=== PATIENT | female | born 1940 | race Caucasian/White ===

== ENCOUNTER → 2017-11-30 07:26 | Outpatient (CLI) | payer MEDICARE, SELFPAY ==
--- NOTE | 2017-11-30 07:29 | HPBI_ITS ---
MAMMOGRAPHY - BILATERAL SCREENING REASON FOR EXAM: Female, 77 years old. Routine annual screening examination. PERTINENT HISTORY: Aunt with breast cancer. TECHNIQUE: Digital bilateral breast isi (3D mammographic acquisition) in the CC and MLO projections. 2-D mediolateral oblique (MLO) and craniocaudad (CC) views of both breasts were obtained. CAD: Full Field Digital Mammography with Computer Added Detection was performed. COMPARISON: Comparison is made with prior examination dated May 07, 2017 and September 28, 2015. FINDINGS: Breast Composition: The breasts are heterogeneously dense, which may obscure small masses. There are no dominant masses or suspicious calcifications. No other significant abnormalities are identified. There has been no significant change since the prior study. HPBI/SCREENING MAMM (CAD), BILAT IMPRESSION: Stable bilateral screening mammogram. Yearly follow-up mammogram recommended. (A) ASSESSMENT CATEGORY: BIRADS Category 1: Negative. A letter regarding these results will be sent to the patient by the facility within 30 days. Approximately 10% of breast cancers are not detected by mammography. A normal mammogram should not delay biopsy of a clinically suspicious abnormality. [id number] Electronically Signed: Miguel Paz MD at 9:03 EST Tel [phone], Service support ,
== END ==
PROVIDERS: Family Provider Family Medicine; PCP Family Medicine; Visit Provider Family Medicine
DX: Z12.31 Encounter for screening mammogram for malignant neoplasm of breast (principal)
CPT/HCPCS: 77063; 77067

== ENCOUNTER → 2018-04-23 13:47 | Outpatient (CLI) | payer MEDICARE, SELFPAY ==
--- NOTE | 2018-04-23 13:50 | CDU_ITS ---
Reason For Study: Transient loss of OS Rt. Velocities/BP Lt. Velocities/BP Prox CCA 87/17 cm/sec. Prox CCA 109/26 cm/sec. Mid CCA 91/19 cm/sec. Mid CCA 105/28 cm/sec. Dist CCA 85/19 cm/sec. Dist CCA 92/25 cm/sec. Prox ICA 64/17 cm/sec. Prox ICA 57/19 cm/sec. Mid ICA 72/24 cm/sec. Mid ICA 73/24 cm/sec. Dist ICA 111/37 cm/sec. Dist ICA 98/37 cm/sec. Rt. ICA/CCA = 1.21. Lt. ICA/CCA = 0.93. Prox ECA 56/7 cm/sec. Prox ECA 71/7 cm/sec. Rt. Vert. 51/13 cm/sec. Lt. Vert. 70/19 cm/sec. Right Extracranial There is intimal thickening but no significant atherosclerotic plaque noted in the right common carotid artery. There is no significant atherosclerotic plaque noted in the right internal carotid artery. There is heterogeneous, irregular atherosclerotic plaque noted in the right external carotid artery. Antegrade flow is noted in the right vertebral artery. Left Extracranial There is intimal thickening but no significant atherosclerotic plaque noted in the left common carotid artery. There is intimal thickening but no significant atherosclerotic plaque noted in the left internal carotid artery. There is intimal thickening but no significant atherosclerotic plaque noted in the left external carotid artery. Antegrade flow is noted in the left vertebral artery. Procedure Carotid Duplex [id number]. Exam performed in department. Interpretation Summary No significant atherosclerotic plaque or stenosis noted in the internal carotid arteries bilaterally. Flow within the vertebral arteries is antegrade bilaterally. Ordering Physician: Mike Valencia Referring Physician: Rajendra Clarke Performed By: Nati Canela, KAREEN, RVT
== END ==
PROVIDERS: Family Provider Family Medicine; PCP Family Medicine; Visit Provider Ophthalmology
DX: H53.122 Transient visual loss, left eye (principal)
CPT/HCPCS: 93880

== ENCOUNTER → 2018-12-27 16:09 | Outpatient (CLI) | payer MEDICARE, SELFPAY ==
--- NOTE | 2018-12-27 16:14 | RAD_ITS ---
STUDY: X-RAY CHEST REASON FOR EXAM: Female, 78 years old. Bronchiectasis TECHNIQUE: PA and lateral views of the chest. COMPARISON: 06/17/2016 FINDINGS: There is stable hyperinflation, calcified granulomata reticulonodular interstitial disease, DEXA scoliosis. There appears to be some bronchial dilatation of the left central bronchi and right inferior medial bronchi as on previous exam. There is pleural fibrotic thickening of the pulmonary lung apices. Normal size heart. There are calcified mediastinal lymph nodes. Normal visualized pulmonary arteries. Normal visualized aortic arch 3 and descending thoracic aorta. Normal visualized thoracic spine. Normal visualized ribs, clavicles, and shoulders. There is no demonstrated abnormality of the visualized soft tissue structures of the upper abdomen. 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 No pulmonary edema, congestive heart failure or confluent pneumonia. Other nonacute findings as outlined above. Electronically Signed: Kalani William MD at 8:01 EDT , Service support ,
== END ==
PROVIDERS: Family Provider Family Medicine; PCP Family Medicine; Referring Provider Internal Medicine Pulmonary Disease; Visit Provider Internal Medicine Pulmonary Disease
DX: J47.9 Bronchiectasis, uncomplicated (principal)
CPT/HCPCS: 71046

== ENCOUNTER → 2019-02-18 07:33 | Outpatient (CLI) | payer MEDICARE, SELFPAY ==
--- NOTE | 2019-02-18 07:36 | BI_ITS ---
MAMMOGRAPHY - BILATERAL SCREENING REASON FOR EXAM: Female, 78 years old. Routine annual screening examination. PERTINENT HISTORY: Daughter with breast cancer. Aunt with breast cancer. TECHNIQUE: Digital bilateral breast isi (3D mammographic acquisition) in the CC and MLO projections. 2-D mediolateral oblique (MLO) and craniocaudad (CC) views of both breasts were obtained. CAD: Full Field Digital Mammography with Computer Added Detection was performed. COMPARISON: Comparison is made with prior study dated November 30, 2017 and November 07, 2016. FINDINGS: Breast Composition: The breasts are heterogeneously dense, which may obscure small masses. There are no dominant masses or suspicious calcifications. No other significant abnormalities are identified. There has been no significant change since the prior study. BI/SCREENING MAMM (CAD), BILAT IMPRESSION: Stable bilateral screening mammogram. Yearly follow-up mammogram recommended. (A) ASSESSMENT CATEGORY: BIRADS Category 1: Negative. A letter regarding these results will be sent to the patient by the facility within 30 days. Approximately 10% of breast cancers are not detected by mammography. A normal mammogram should not delay biopsy of a clinically suspicious abnormality. [id number] Electronically Signed: Miguel Paz, at 8:36 EDT , Service support ,
== END ==
PROVIDERS: Family Provider Family Medicine; PCP Family Medicine; Referring Provider Family Medicine; Visit Provider Family Medicine
DX: Z12.31 Encounter for screening mammogram for malignant neoplasm of breast (principal)
CPT/HCPCS: 77063; 77067

== ENCOUNTER → 2019-05-31 | Outpatient (CLI) | payer MEDICARE, SELFPAY ==
[2019-05-31 15:22] LABS: Absolute Lymphocyte Count 1.31 X10^3/uL (0.83-4.51); Absolute Neutrophil Count 10.4 X10^3/uL (2.0-7.7); Basophil# 0.07 X10^3/uL; Basophil% 0.5 % (0-1); Eosinophil# 0.19 X10^3/uL; Eosinophils% 1.4 % (0-5); Hematocrit 40.6 % (37-47); Lymphocyte # 1.31 X10^3/ul (4.0); Lymphocyte % 9.9 % (19-41); Mean Corpuscular Hgb 28.8 pg (27.0-32.0); Mean Platelet Vol. 11.4 fl (6.2-12.0); Monocyte# 1.19 X10^3/uL; NRBC Flagged by Analyzer 0 % (0-5); Neutrophil # 10.38 X10^3/uL (2.7-7.7); Neutrophil % 78.8 % (47-70); Platelet Count 257 K/mm3 (150-450); RBC Distribution Width CV 13.9 % (11.6-14.6); RBC Distribution Width SD 45.1 fl (35.1-43.9); Red Blood Count 4.51 M/mm3 (4.2-5.4); White Blood Count 13.2 K/mm3 (4.4-11.0)
[2019-05-31 15:41] LABS: ALB/GLOB Ratio 0.7 RATIO (0.9-2.4); AST(SGOT) 23 U/L (15-37); Alanine Aminotransfer ALT/SGPT 23 U/L (13-56); Albumin, Serum 3.4 g/dL (3.2-5.0); Alkaline Phosphatase 92 U/L (45-117); Anion Gap 5 (5-15); BUN 12 mg/dL (7-18); BUN/Creat Ratio 13.8 RATIO (10-20); Calcium,Total 8.9 mg/dL (8.5-10.1); Chloride 99 mmol/L (98-107); Creatinine, Serum 0.87 mg/dL (0.55-1.02); EST Glomerular Filtration Rate 67 mL/min (>60); Est Glom Filt Rate - Afr Amer 81 mL/min (>60); Globulin 4.8 g/dL (2.2-4.2); Glucose 103 mg/dL (74-106); Potassium 4.2 mmol/L (3.5-5.1); Protein, Total 8.2 g/dL (6.4-8.2); Sodium Level 134 mmol/L (136-145); Thyroid Stim Hormone (TSH) 1.28 uIU/mL (0.358-3.74)
[2019-05-31 16:03] LABS: Vitamin D,25 Hydroxy 42.4 ng/mL (29.95-100.01)
== END | disposition home or self-care (01) ==
LOC: MFPLAB 14:03
PROVIDERS: Family Provider Family Medicine; PCP Family Medicine; Referring Provider Family Medicine; Visit Provider Family Medicine
DX: E03.9 Hypothyroidism, unspecified (principal); R63.4 Abnormal weight loss; M81.0 Age-related osteoporosis without current pathological fracture
CPT/HCPCS: 36415; 80053; 82306; 84443; 85025

== ENCOUNTER → 2020-02-28 10:41 | Outpatient (CLI) | payer MEDICARE, SELFPAY ==
--- NOTE | 2020-02-28 10:44 | BI_ITS ---
MAMMOGRAPHY - BILATERAL SCREENING REASON FOR EXAM: Female, 79 years old. Routine annual screening examination. PERTINENT HISTORY: Daughter with breast cancer. Aunt with breast cancer. TECHNIQUE: Digital bilateral breast marck (3D mammographic acquisition) in the CC and MLO projections. 2-D mediolateral oblique (MLO) and craniocaudad (CC) views of both breasts were obtained. CAD: Full Field Digital Mammography with Computer Added Detection was performed. COMPARISON: Comparison is made with prior examination dated February 18, 2019 and November 30, 2017. FINDINGS: Breast Composition: The breasts are heterogeneously dense, which may obscure small masses. There are no dominant masses or suspicious calcifications. No other significant abnormalities are identified. There has been no significant change since the prior study. BI/SCREEN MAMM (CAD) W/MARCK BILAT IMPRESSION: Stable bilateral screening mammogram. Yearly follow-up mammogram recommended. (A) ASSESSMENT CATEGORY: BIRADS Category 1: Negative. A letter regarding these results will be sent to the patient by the facility within 30 days. Approximately 10% of breast cancers are not detected by mammography. A normal mammogram should not delay biopsy of a clinically suspicious abnormality. [id number] Electronically Signed: Miguel Paz, at 9:08 EDT , Service support ,
--- NOTE | 2020-02-28 10:50 | BD_ITS ---
STUDY: DUAL ENERGY X-RAY ABSORPTIOMETRY / DXA REASON FOR EXAM: Female, 79 years old. DIRECTOR OF QUALITY CONTROL -- TAKES THYROID MEDICATION -- TAKES CALCIUM AND MULTIVITAMIN -- HX OF TRYING MULTIPLE BONE BUILDING MEDS- REACTIONS -- DOES MODERATE AMOUNT OF EXERCISE -- ROYA OF 3.25 INCHES TECHNIQUE: Bone Mineral Density (BMD) measurements of lumbar spine and bilateral hips were obtained. COMPARISON: Comparison is made with prior study dated January 31, 2010. FINDINGS: Lumbar Spine (L1-L4): g/cm2 (0.992) / T-score (-1.7) / Z-score (0.1) Findings are suggestive of osteopenia with a moderate fracture risk. Increased thoracic kyphosis. Left Femur Total: g/cm2 (0.561) / T-score (-3.5) / Z-score (-1.6) Left Femoral Neck: g/cm2 (0.644) / T-score (-2.8) / Z-score (-0.7) Right Femur Total: g/cm2 (0.525) / T-score (-3.8) / Z-score (-1.9) Right Femoral Neck: g/cm2 (0.796) / T-score (-1.7) / Z-score (0.4) The T-Scores on the most recent prior examination were: Lumbar Spine (L1-L4): There has been worsening of bone density since the previous examination. Left Femur Total: which represents a worsening of 14%. Right Femur Total: which represents a worsening of 15.7%. BD/Dexa Bone Density Study IMPRESSION: The patient is considered osteoporotic as outlined below according to World [employer] Organization (WHO) criteria with a high fracture risk. There has been worsening of bone density since the previous examination. Reference Information: The T-score is the number of standard deviations above or below the standard which is normal for young adults at their peak bone mineral density. The World Health Organization (WHO) interprets the T-scores as follows: Above -1 Normal bone density Between -1 and -2.5 Osteopenia Equal to / or below -2.5 Osteoporosis As a practical clinical guideline, osteopenia may be graded as follows: Mild -1 through -1.5 Moderate -1.6 through -2.0 Severe -2.1 through -2.4 The Z-score is the number of standard deviations above or below age-matched controls. A Z-score of less than -1.5 would be considered abnormal. References: 1. NIH Osteoporosis and Related Bone Diseases http://www.osteo.org 2. International Society for Clinical Densitometry http://www.iscd.org 3. National Osteoporosis Foundation http://www.nof.org Electronically Signed: Miguel Paz, at 9:01 EDT , Service support ,
== END ==
PROVIDERS: PCP Family Medicine; Referring Provider Family Medicine; Visit Provider Family Medicine
DX: Z12.39 Encounter for other screening for malignant neoplasm of breast (principal); M81.0 Age-related osteoporosis without current pathological fracture
CPT/HCPCS: 77063; 77067; 77080

== ENCOUNTER → 2020-05-04 | Outpatient (CLI) | payer MEDICARE, SELFPAY | END | disposition home or self-care (01) | LOC: LABSPEC 13:32 | PROVIDERS: PCP Family Medicine; Referring Provider Family Medicine; Visit Provider Family Medicine | DX: R82.90 Unspecified abnormal findings in urine (principal) | CPT/HCPCS: 87086; 87088 ==

== ENCOUNTER → 2020-10-22 11:46 | Outpatient (CLI) | payer MEDICARE, SELFPAY ==
--- NOTE | 2020-10-22 11:48 | US_ITS ---
STUDY: ULTRASOUND OF THE FEMALE PELVIS - COMPLETE REASON FOR EXAM: Female, 80 years old. PELVIC PAIN LMP: Menopause TECHNIQUE: Transabdominal TECHNICAL QUALITY: Adequate. COMPARISON: None. FINDINGS: The uterus is anteverted and is in a midline position. The uterus measures 4.5 x 4.5 x 2.2 cm. Normal uterine cervix. The endometrium measures 4 mm in thickness, and is hyperechoic. There is no demonstrated endometrial mass. There is no demonstrated myometrial mass. I.U.D. - The patient does not have an I.U.D. The ovaries are not visualized.. There is no fluid in the cul-de-sac. The pre void volume of the bladder was ml. The post void volume of the bladder was ml. Polycystic ovary disease: No. US/Pelvic (Non ) IMPRESSION: Normal female pelvis. Electronically Signed: Wiley Graves MD at 16:54 EST Tel , Service support ,
== END ==
PROVIDERS: PCP Family Medicine; Referring Provider Family Medicine; Visit Provider Family Medicine
DX: R10.30 Lower abdominal pain, unspecified (principal)
CPT/HCPCS: 76856

== ENCOUNTER → 2021-04-16 10:49 | Outpatient (CLI) | payer MEDICARE, SELFPAY ==
[2020-12-11 15:17] VITALS: BMI 18.3
--- NOTE | 2021-04-16 10:51 | BI_ITS ---
MAMMOGRAPHY - BILATERAL SCREENING REASON FOR EXAM: Female, 80 years old. Routine annual screening examination. PERTINENT HISTORY: Daughter with breast cancer. Aunt with breast cancer. TECHNIQUE: Digital bilateral breast marck (3D mammographic acquisition) in the CC and MLO projections. 2-D mediolateral oblique (MLO) and craniocaudad (CC) views of both breasts were obtained. CAD: Full Field Digital Mammography with Computer Added Detection was performed. COMPARISON: Comparison is made with prior study of 02/28/2020 and 02/18/2019. FINDINGS: Breast Composition: The breasts are heterogeneously dense, which may obscure small masses. There are no dominant masses or suspicious calcifications. No other significant abnormalities are identified. There has been no significant change since the prior study. BI/SCRN MAMM (CAD)W/MARCK BILAT IMPRESSION: Stable bilateral screening mammogram. Yearly follow-up mammogram recommended. (A) ASSESSMENT CATEGORY: BIRADS Category 1: Negative. A letter regarding these results will be sent to the patient by the facility within 30 days. Approximately 10% of breast cancers are not detected by mammography. A normal mammogram should not delay biopsy of a clinically suspicious abnormality. [id number] Electronically Signed: Miguel Paz MD at 11:26 EDT , Service support ,
== END ==
PROVIDERS: PCP Family Medicine; Referring Provider Obstetrics & Gynecology; Visit Provider Obstetrics & Gynecology
DX: Z12.31 Encounter for screening mammogram for malignant neoplasm of breast (principal)
CPT/HCPCS: 77063; 77067

== ENCOUNTER → 2021-05-14 08:36 | Outpatient (CLI) | payer MEDICARE, SELFPAY ==
[2020-12-11 15:17] VITALS: BMI 18.3
[2021-05-14 10:07] LABS: Absolute Lymphocyte Count 1.76 X10^3/uL (0.83-4.51); Absolute Neutrophil Count 7.9 X10^3/uL (2.0-7.7); Basophil# 0.08 X10^3/uL; Basophil% 0.7 % (0-1); Eosinophil# 0.25 X10^3/uL; Eosinophils% 2.2 % (0-5); Hematocrit 41.7 % (37-47); Hemoglobin 13.4 g/dL (12.0-15.0); Lymphocyte # 1.76 X10^3/ul (0.83-4.51); Lymphocyte % 15.7 % (19-41); Mean Corp Hgb Conc 32.1 g/dL (32-36); Mean Corpuscular Hgb 30.8 pg (27.0-32.0); Mean Corpuscular Volume 95.9 fL (81-99); Mean Platelet Vol. 11.6 fl (6.2-12.0); Monocyte# 1.19 X10^3/uL; Monocyte% 10.6 % (0-10); NRBC Flagged by Analyzer 0 % (0-5); Neutrophil # 7.86 X10^3/uL (2.7-7.7); Neutrophil % 70.4 % (47-70); Platelet Count 300 K/mm3 (150-450); RBC Distribution Width CV 13.4 % (11.6-14.6); RBC Distribution Width SD 47.5 fl (35.1-43.9); Red Blood Count 4.35 M/mm3 (4.2-5.4); White Blood Count 11.2 K/mm3 (4.4-11.0)
[2021-05-14 10:47] LABS: ALB/GLOB Ratio 0.7 RATIO (0.9-2.4); AST(SGOT) 16 U/L (15-37); Alanine Aminotransfer ALT/SGPT 16 U/L (13-56); Albumin, Serum 3.4 g/dL (3.2-5.0); Alkaline Phosphatase 89 U/L (45-117); Anion Gap 7 (5-15); BUN 8 mg/dL (7-18); BUN/Creat Ratio 12.1 RATIO (10-20); Calcium,Total 8.6 mg/dL (8.5-10.1); Chloride 100 mmol/L (98-107); Cholesterol 171 mg/dL (200); Creatinine, Serum 0.66 mg/dL (0.55-1.02); EST Glomerular Filtration Rate 91 mL/min (>60); Est Glom Filt Rate - Afr Amer 111 mL/min (>60); Globulin 4.6 g/dL (2.2-4.2); Glucose 73 mg/dL (74-106); High Density Lipoprotein 64 mg/dL; Potassium 4.1 mmol/L (3.5-5.1); Sodium Level 136 mmol/L (136-145); Thyroid Stim Hormone (TSH) 2.11 uIU/mL (0.358-3.74); Triglycerides 88 mg/dL; Very Low Density Lipoprotein 18 mg/dL (5-40)
== END ==
PROVIDERS: PCP Family Medicine; Referring Provider Family Medicine; Visit Provider Family Medicine
DX: E03.9 Hypothyroidism, unspecified (principal); E78.00 Pure hypercholesterolemia, unspecified
CPT/HCPCS: 36415; 80053; 80061; 84443; 85025

== ENCOUNTER → 2021-06-12 12:10 | Outpatient (CLI) | payer MEDICARE, SELFPAY ==
--- NOTE | 2021-06-12 12:13 | RAD_ITS ---
STUDY: X-RAY - RIGHT WRIST REASON FOR EXAM: Female, 80 years old. Wrist pain. TECHNIQUE: 3 view(s) of the wrist were obtained. COMPARISON: None. FINDINGS: Osteopenia. Mild arthrosis of the radiocarpal articulation. Mild arthrosis of the radiocarpal row. Moderate arthrosis of the first CMC joint. Chondrocalcinosis. RAD/Wrist min 3 Views IMPRESSION: Osteopenia with osteoarthritic changes as described. Chondrocalcinosis. No acute abnormality, erosive changes or periostitis. Electronically Signed: Nilo Villa MD at 9:45 EDT , Service support ,
== END ==
PROVIDERS: PCP Family Medicine; Referring Provider Family Medicine; Visit Provider Family Medicine
DX: M25.531 Pain in right wrist (principal)
CPT/HCPCS: 73110

== ENCOUNTER 2021-10-21 07:58 | Outpatient (CLI) | payer MEDICARE, SELFPAY | END 2021-10-21 23:59 | disposition short-term general hospital (02) | LOC: LABSPEC 10-22 07:58 | PROVIDERS: PCP Nurse Practitioner Family; Referring Provider Nurse Practitioner Family | DX: U07.1 COVID-19 (principal) | CPT/HCPCS: 87635; U0003; U0005 ==

== ENCOUNTER 2021-10-28 12:49 | Outpatient (CLI) | payer MEDICARE, SELFPAY ==
[2021-10-28] MEDS: 0.9% Saline Lock 10 ML Syringe IV (13:13)
[2021-10-28 13:18] VITALS: BP 197/105; PULSE 77; RESP 16; TEMP 36.4; O2SAT 97; BMI 18.0
[2021-10-28 13:54] VITALS: BP 157/82; PULSE 65; RESP 16; TEMP 37.1; O2SAT 100
[2021-10-28 14:50] VITALS: BP 184/83; PULSE 70; RESP 16; TEMP 37; O2SAT 97
== END 2021-10-28 23:59 | disposition home or self-care (01) ==
LOC: MS3OUT 12:49 → MS3 12:50
PROVIDERS: PCP Nurse Practitioner Family; Referring Provider Nurse Practitioner Adult Health; Visit Provider Nurse Practitioner Adult Health
DX: Z23 Encounter for immunization (principal); U07.1 COVID-19
CPT/HCPCS: J7050; M0245; Q0245; A4216

== ENCOUNTER 2021-11-29 11:10 | Outpatient (CLI) | payer MEDICARE, SELFPAY ==
[2021-11-29 11:54] LABS: Absolute Lymphocyte Count 1.95 X10^3/uL (0.83-4.51); Basophil# 0.07 X10^3/uL; Basophil% 0.6 % (0-1); Eosinophil# 0.22 X10^3/uL; Eosinophils% 1.8 % (0-5); Hematocrit 41.4 % (37-47); Hemoglobin 13.3 g/dL (12.0-15.0); Lymphocyte # 1.95 X10^3/ul (0.83-4.51); Lymphocyte % 15.6 % (19-41); Mean Corp Hgb Conc 32.1 g/dL (32-36); Mean Corpuscular Hgb 29.7 pg (27.0-32.0); Mean Corpuscular Volume 92.4 fL (81-99); Mean Platelet Vol. 11.1 fl (6.2-12.0); Monocyte# 1.26 X10^3/uL; Monocyte% 10.1 % (0-10); NRBC Flagged by Analyzer 0 % (0-5); Neutrophil # 8.97 X10^3/uL (2.7-7.7); Neutrophil % 71.5 % (47-70); Platelet Count 267 K/mm3 (150-450); RBC Distribution Width CV 14.6 % (11.6-14.6); RBC Distribution Width SD 49.6 fl (35.1-43.9); Red Blood Count 4.48 M/mm3 (4.2-5.4); White Blood Count 12.5 K/mm3 (4.4-11.0)
[2021-11-29 12:40] LABS: Vitamin D,25 Hydroxy 43.4 ng/mL
[2021-11-29 12:42] LABS: ALB/GLOB Ratio 0.8 RATIO (0.9-2.4); AST(SGOT) 21 U/L (15-37); Alanine Aminotransfer ALT/SGPT 18 U/L (13-56); Albumin, Serum 3.6 g/dL (3.2-5.0); Alkaline Phosphatase 98 U/L (45-117); Anion Gap 8 (5-15); BUN 11 mg/dL (7-18); BUN/Creat Ratio 15.4 RATIO (10-20); Calcium,Total 9.1 mg/dL (8.5-10.1); Chloride 101 mmol/L (98-107); Creatinine, Serum 0.71 mg/dL (0.55-1.02); EST Glomerular Filtration Rate 84 mL/min (>60); Est Glom Filt Rate - Afr Amer 101 mL/min (>60); Globulin 4.4 g/dL (2.2-4.2); Glucose 83 mg/dL (74-106); Potassium 4.3 mmol/L (3.5-5.1); Sodium Level 138 mmol/L (136-145); T4 Free Direct 1.16 ng/dL (0.76-1.46); Thyroid Stim Hormone (TSH) 2.47 uIU/mL (0.358-3.74)
== END 2021-11-29 23:59 | disposition home or self-care (01) ==
LOC: MFPLAB 11:15
PROVIDERS: PCP Family Medicine; Referring Provider Family Medicine; Visit Provider Family Medicine
DX: E03.9 Hypothyroidism, unspecified (principal); E55.9 Vitamin D deficiency, unspecified
CPT/HCPCS: 36415; 80053; 82306; 84439; 84443; 85025

== ENCOUNTER → 2022-04-22 | Outpatient (CLI) | payer MEDICARE, SELFPAY ==
--- NOTE | 2022-04-22 09:03 | BI_ITS ---
MAMMOGRAPHY - BILATERAL SCREENING REASON FOR EXAM: Female, 81 years old. Routine annual screening examination. PERTINENT HISTORY: Daughter with breast cancer. Aunt with breast cancer. TECHNIQUE: Digital bilateral breast marck (3D mammographic acquisition) in the CC and MLO projections. 2-D mediolateral oblique (MLO) and craniocaudad (CC) views of both breasts were obtained. CAD: Full Field Digital Mammography with Computer Added Detection was performed. COMPARISON: Comparison is made with prior study dated 04/16/2021 and 02/28/2020. FINDINGS: Breast Composition: The breasts are heterogeneously dense, which may obscure small masses. There are no dominant masses or suspicious calcifications. No other significant abnormalities are identified. There has been no significant change since the prior study. BI/SCRN MAMM (CAD)W/MARCK BILAT IMPRESSION: Stable bilateral screening mammogram. Yearly follow-up mammogram recommended. (A) ASSESSMENT CATEGORY: BIRADS Category 1: Negative. A letter regarding these results will be sent to the patient by the facility within 30 days. Approximately 10% of breast cancers are not detected by mammography. A normal mammogram should not delay biopsy of a clinically suspicious abnormality. [id number] Electronically Signed: Miguel Paz MD at 9:32 EDT ,
== END | disposition home or self-care (01) ==
LOC: OPBI 09:01
PROVIDERS: PCP Family Medicine; Referring Provider Family Medicine; Visit Provider Family Medicine
DX: Z12.31 Encounter for screening mammogram for malignant neoplasm of breast (principal); Z80.3 Family history of malignant neoplasm of breast
CPT/HCPCS: 77063; 77067

== ENCOUNTER → 2022-06-12 | Outpatient (CLI) | payer MEDICARE, SELFPAY ==
[2022-06-12 10:22] LABS: Absolute Lymphocyte Count 1.24 X10^3/uL (0.83-4.51); Absolute Neutrophil Count 11.3 X10^3/uL (2.0-7.7); Basophil# 0.07 X10^3/uL; Basophil% 0.5 % (0-1); Eosinophil# 0.24 X10^3/uL; Eosinophils% 1.6 % (0-5); Hematocrit 39.9 % (37-47); Hemoglobin 13.3 g/dL (12.0-15.0); Lymphocyte # 1.24 X10^3/ul (0.83-4.51); Lymphocyte % 8.2 % (19-41); Mean Corp Hgb Conc 33.3 g/dL (32-36); Mean Corpuscular Hgb 31.1 pg (27.0-32.0); Mean Corpuscular Volume 93.2 fL (81-99); Mean Platelet Vol. 11.9 fl (6.2-12.0); Monocyte# 2.12 X10^3/uL; Monocyte% 14.1 % (0-10); NRBC Flagged by Analyzer 0 % (0-5); Neutrophil % 75.1 % (47-70); POSITIVE DIFFERENTIAL YES; Platelet Count 268 K/mm3 (150-450); RBC Distribution Width CV 13.5 % (11.6-14.6); RBC Distribution Width SD 46.2 fl (35.1-43.9); Red Blood Count 4.28 M/mm3 (4.2-5.4); White Blood Count 15.1 K/mm3 (4.4-11.0)
[2022-06-12 10:23] LABS: Differential Indicated SCAN CRITERIA MET
[2022-06-12 10:37] LABS: Vitamin D,25 Hydroxy 28.7 ng/mL
[2022-06-12 10:56] LABS: ALB/GLOB Ratio 0.6 RATIO (0.9-2.4); AST(SGOT) 15 U/L (15-37); Alanine Aminotransfer ALT/SGPT 16 U/L (13-56); Albumin, Serum 3.2 g/dL (3.2-5.0); Alkaline Phosphatase 86 U/L (45-117); Anion Gap 6 (5-15); BUN 10 mg/dL (7-18); BUN/Creat Ratio 14.2 RATIO (10-20); Calcium,Total 9.1 mg/dL (8.5-10.1); Chloride 96 mmol/L (98-107); Cholesterol 160 mg/dL (200); EST Glomerular Filtration Rate 85 mL/min (>60); Est Glom Filt Rate - Afr Amer 102 mL/min (>60); Globulin 5.1 g/dL (2.2-4.2); Glucose 101 mg/dL (74-106); High Density Lipoprotein 63 mg/dL; Potassium 4.2 mmol/L (3.5-5.1); Protein, Total 8.3 g/dL (6.4-8.2); Sodium Level 133 mmol/L (136-145); T4 Free Direct 1.42 ng/dL (0.76-1.46); Thyroid Stim Hormone (TSH) 1.77 uIU/mL (0.358-3.74); Triglycerides 70 mg/dL; Very Low Density Lipoprotein 14 mg/dL (5-40)
[2022-06-13 15:04] LABS: Pathologist Review Reviewed
[2022-06-17 15:07] LABS: PROEL- A/G Ratio 0.8 (0.7-1.7); PROEL- Albumin 3.4 g/dL (2.9-4.4); PROEL- Alpha-1 Globulin 0.4 g/dL (0.0-0.4); PROEL- Alpha-2 Globulin 0.9 g/dL (0.4-1.0); PROEL- Beta Globulin 1.1 g/dL (0.7-1.3); PROEL- Gamma Globulin 1.8 g/dL (0.4-1.8); PROEL- Globulin, Total 4.2 g/dL (2.2-3.9); PROEL- TOTAL PROTEIN 7.6 g/dL (6.0-8.5)
== END | disposition home or self-care (01) ==
LOC: MFPLAB 08:04
PROVIDERS: PCP Family Medicine; Visit Provider Family Medicine
DX: I10 Essential (primary) hypertension (principal); E03.9 Hypothyroidism, unspecified; E78.5 Hyperlipidemia, unspecified; E88.09 Other disorders of plasma-protein metabolism, not elsewhere classified; E55.9 Vitamin D deficiency, unspecified
CPT/HCPCS: 36415; 80053; 80061; 82306; 84165; 84439; 84443; 85025

== ENCOUNTER → 2023-04-23 | Outpatient (CLI) | payer MEDICARE, SELFPAY ==
--- NOTE | 2023-04-23 09:05 | BI_ITS ---
MAMMOGRAPHY - BILATERAL SCREENING REASON FOR EXAM: Female, 82 years old. Routine annual screening examination. PERTINENT HISTORY: Daughter with breast cancer. Aunt with breast cancer. TECHNIQUE: Digital bilateral breast marck (3D mammographic acquisition) in the CC and MLO projections. 2-D mediolateral oblique (MLO) and craniocaudad (CC) views of both breasts were obtained. CAD: Full Field Digital Mammography with Computer Added Detection was performed. COMPARISON: Comparison is made with prior study April 22, 2022 and April 16, 2021. FINDINGS: Breast Composition: The breasts are extremely dense, which lowers the sensitivity of mammography. There are no dominant masses or suspicious calcifications. No other significant abnormalities are identified. There has been no significant change since the prior study. BI/SCRN MAMM (CAD)W/MARCK BILAT IMPRESSION: Stable bilateral screening mammogram. Yearly follow-up mammogram recommended. (A) ASSESSMENT CATEGORY: BIRADS Category 1: Negative. A letter regarding these results will be sent to the patient by the facility within 30 days. Approximately 10% of breast cancers are not detected by mammography. A normal mammogram should not delay biopsy of a clinically suspicious abnormality. [id number] Electronically Signed: Miguel Paz MD at 9:58 EDT ,
== END | disposition home or self-care (01) ==
LOC: OPBI 09:04
PROVIDERS: PCP Family Medicine; Referring Provider Nurse Practitioner Family; Visit Provider Nurse Practitioner Family
DX: Z12.31 Encounter for screening mammogram for malignant neoplasm of breast (principal)
CPT/HCPCS: 77063; 77067

== ENCOUNTER → 2023-05-06 | Outpatient (CLI) | payer MEDICARE, SELFPAY ==
[2023-05-06 10:44] LABS: Absolute Lymphocyte Count 1.74 X10^3/uL (0.83-4.51); Absolute Neutrophil Count 8.5 X10^3/uL (2.0-7.7); Basophil# 0.09 X10^3/uL; Basophil% 0.8 % (0-1); Eosinophil# 0.24 X10^3/uL; Eosinophils% 2.1 % (0-5); Hematocrit 41.9 % (37-47); Hemoglobin 13.5 g/dL (12.0-15.0); Lymphocyte # 1.74 X10^3/ul (0.83-4.51); Mean Corp Hgb Conc 32.2 g/dL (32-36); Mean Corpuscular Hgb 29.8 pg (27.0-32.0); Mean Corpuscular Volume 92.5 fL (81-99); Mean Platelet Vol. 11.2 fl (6.2-12.0); Monocyte# 0.98 X10^3/uL; Monocyte% 8.5 % (0-10); NRBC Flagged by Analyzer 0 % (0-5); Neutrophil # 8.48 X10^3/uL (2.7-7.7); Neutrophil % 73.3 % (47-70); Platelet Count 318 K/mm3 (150-450); RBC Distribution Width CV 14.2 % (11.6-14.6); RBC Distribution Width SD 47.8 fl (35.1-43.9); Red Blood Count 4.53 M/mm3 (4.2-5.4); White Blood Count 11.6 K/mm3 (4.4-11.0)
[2023-05-06 11:29] LABS: Vitamin D,25 Hydroxy 33.3 ng/mL
[2023-05-06 11:45] LABS: ALB/GLOB Ratio 0.7 RATIO (0.9-2.4); AST(SGOT) 17 U/L (15-37); Alanine Aminotransfer ALT/SGPT 14 U/L (13-56); Albumin, Serum 3.4 g/dL (3.2-5.0); Alkaline Phosphatase 103 U/L (45-117); Anion Gap 4 (5-15); BUN 12 mg/dL (7-18); BUN/Creat Ratio 15.7 RATIO (10-20); Calcium,Total 8.8 mg/dL (8.5-10.1); Chloride 98 mmol/L (98-107); Creatinine, Serum 0.76 mg/dL (0.55-1.02); EST Glomerular Filtration Rate 77 mL/min (>60); Est Glom Filt Rate - Afr Amer 93 mL/min (>60); Globulin 4.9 g/dL (2.2-4.2); Glucose 82 mg/dL (74-106); Potassium 4.2 mmol/L (3.5-5.1); Protein, Total 8.3 g/dL (6.4-8.2); Sodium Level 133 mmol/L (136-145); T4 Free Direct 1.18 ng/dL (0.76-1.46); Thyroid Stim Hormone (TSH) 1.92 uIU/mL (0.358-3.74)
[2023-05-08 13:08] LABS: PROEL- A/G Ratio 0.8 (0.7-1.7); PROEL- Albumin 3.5 g/dL (2.9-4.4); PROEL- Alpha-1 Globulin 0.3 g/dL (0.0-0.4); PROEL- Alpha-2 Globulin 0.8 g/dL (0.4-1.0); PROEL- Beta Globulin 1.1 g/dL (0.7-1.3); PROEL- Globulin, Total 4.2 g/dL (2.2-3.9); PROEL- TOTAL PROTEIN 7.7 g/dL (6.0-8.5)
== END | disposition home or self-care (01) ==
LOC: MFPLAB 08:50
PROVIDERS: PCP Family Medicine; Visit Provider Family Medicine
DX: E77.8 Other disorders of glycoprotein metabolism (principal); E03.9 Hypothyroidism, unspecified; E87.5 Hyperkalemia; E55.9 Vitamin D deficiency, unspecified
CPT/HCPCS: 36415; 80053; 82306; 84165; 84439; 84443; 85025

== ENCOUNTER → 2023-09-02 | Outpatient (CLI) | payer MEDICARE, SELFPAY | END | disposition home or self-care (01) | PROVIDERS: PCP Family Medicine; Visit Provider Family Medicine | DX: N39.0 Urinary tract infection, site not specified (principal) | CPT/HCPCS: 87086 ==

== ENCOUNTER → 2023-09-22 | Outpatient (CLI) | payer MEDICARE, SELFPAY ==
[2023-09-22 14:54] LABS: Absolute Lymphocyte Count 1.77 X10^3/uL (0.83-4.51); Absolute Neutrophil Count 10.1 X10^3/uL (2.0-7.7); Basophil# 0.07 X10^3/uL; Basophil% 0.5 % (0-1); Eosinophil# 0.29 X10^3/uL; Eosinophils% 2.1 % (0-5); Hemoglobin 12.1 g/dL (12.0-15.0); Lymphocyte # 1.77 X10^3/ul (0.83-4.51); Lymphocyte % 12.9 % (19-41); Mean Corp Hgb Conc 32.7 g/dL (32-36); Mean Corpuscular Hgb 29.5 pg (27.0-32.0); Mean Corpuscular Volume 90.2 fL (81-99); Mean Platelet Vol. 10.6 fl (6.2-12.0); Monocyte# 1.42 X10^3/uL; Monocyte% 10.3 % (0-10); NRBC Flagged by Analyzer 0 % (0-5); Neutrophil % 73.6 % (47-70); Platelet Count 379 K/mm3 (150-450); RBC Distribution Width CV 14.3 % (11.6-14.6); RBC Distribution Width SD 47.2 fl (35.1-43.9); White Blood Count 13.7 K/mm3 (4.4-11.0)
[2023-09-22 15:26] LABS: Vitamin B12 1390 pg/mL (211-911); Vitamin D,25 Hydroxy 61.7 ng/mL
[2023-09-22 15:29] LABS: ALB/GLOB Ratio 0.6 RATIO (0.9-2.4); AST(SGOT) 14 U/L (15-37); Alanine Aminotransfer ALT/SGPT 13 U/L (13-56); Alkaline Phosphatase 105 U/L (45-117); Anion Gap 7 (5-15); BUN 10 mg/dL (7-18); BUN/Creat Ratio 16.6 RATIO (10-20); Calcium,Total 8.8 mg/dL (8.5-10.1); Chloride 95 mmol/L (98-107); EST Glomerular Filtration Rate 101 mL/min (>60); Est Glom Filt Rate - Afr Amer 122 mL/min (>60); Glucose 89 mg/dL (74-106); Potassium 4.3 mmol/L (3.5-5.1); Sodium Level 132 mmol/L (136-145); T4 Free Direct 1.22 ng/dL (0.76-1.46); Thyroid Stim Hormone (TSH) 1.46 uIU/mL (0.358-3.74)
== END | disposition home or self-care (01) ==
LOC: MFPLAB 11:57
PROVIDERS: PCP Family Medicine; Visit Provider Family Medicine
DX: R53.83 Other fatigue (principal); E55.9 Vitamin D deficiency, unspecified
CPT/HCPCS: 36415; 80053; 82306; 82607; 84439; 84443; 85025

== ENCOUNTER → 2023-11-04 | Outpatient (CLI) | payer MEDICARE, SELFPAY ==
[2023-11-04 08:48] LABS: Bacteria 0 SEEN /hpf (None Seen); Mucous, Urine 0 SEEN /hpf (<or=2+)
--- OUTSIDE RECORDS SUMMARY | 2023-11-04 09:11 | XMS RPT_ITS | CCD ---
Author Name Unknown Address [address] [place] [address] Organization [facility] Care Team Providers Care Front Office Manager Name Role Phone Mayco Hartman MD Primary Care Provider DR MAYCO HARTMAN MD Primary Care Physician Mayco Hartman MD Primary Care Provider REFERRING REFERRING, IAIN MALONEY ID Attending Unavailable DEVAN KAUR, DR. MAYCO Siegel Primary Care Unavailab MAYCO Black MD Attending Unavailable DEVAN KAUR, DR. MAYCO Siegel Primary Care Unavailab Mayco Black Primary Care Provider [phone] Mayco Yepez Primary Care Provider Mayco Yepez MD Primary Care Provider FELICITY AYALA Attending Unavailable MAYCO YEPEZ Primary Care Unavailable MAYCO YEPEZ Primary Care Unavailable YAMILKA GONZALEZ Attending Unavailable MAYCO YEPEZ Primary Care Unavailable LIT HERRING Attending Unavailable MAYCO YEPEZ Primary Care Unavailable YAMILKA GONZALEZ Referring Unavailable MAYCO YEPEZ Primary Care Unavailable YAMILKA GONZALEZ Referring Unavailable YAMILKA GONZALEZ Referring Unavailable MAYCO YEPEZ Primary Care Unavailable MAYCO HARTMAN Primary Care Unavailable LINDA RODRIGUEZ Attending Unavailable MAYCO YEPEZ Primary Care Unavailable YAMILKA GONZALEZ Referring Unavailable MAYCO YEPEZ Primary Care Unavailable MAYCO HARTMAN Primary Care Unavailable LINDA RODRIGUEZ Referring Unavailable MAYCO YEPEZ Primary Care Unavailable MAYCO YEPEZ Primary Care Unavailable FELICITY AYALA Attending Unavailable MAYCO YEPEZ Primary Care Unavailable LINDA RODRIGUEZ Referring Unavailable MAYCO YEPEZ Primary Care Unavailable MAYCO HARTMAN Primary Care Unavailable FELICITY AYALA Referring Unavailable MAYCO HARTMAN Primary Care Unavailable MAYCO HARTMAN Primary Care Unavailable LINDA RODRIGUEZ Attending Unavailable Allergies Allergy Classification Reported Allergen(s) Allergy Type Date of Onset Reaction(s) Facility (20 sources) Alendronate; Translations: [ALENDRONATE SODIUM] Drug Allergy 9 Swelling [facility] (20 sources) Amoxicillin / Clavulanate; Translations: [AMOXICILLIN-POT CLAVULANATE] Drug Allergy 9 Diarrhea [facility] Work Phone: (20 sources) Doxycycline; Translations: [DOXYCYCLINE] Drug Allergy 9 GI Upset [facility] (20 sources) Meclofenamate; Translations: [MECLOMEN] Drug Allergy 9 GI Upset [facility] (20 sources) Raloxifene; Translations: [RALOXIFENE HCL] Drug Allergy 9 Myalgia [facility] (20 sources) Risedronate; Translations: [RISEDRONATE SODIUM] Drug Allergy 9 Other: See Comments [facility] (20 sources) Sulfamethoxazole / Trimethoprim; Translations: [SULFAMETHOXAZOLE-TR IMETHOPRIM] Drug Allergy [facility] (20 sources) Sulfonamides (Antibiotic); Translations: [SULFA (SULFONAMIDE ANTIBIOTICS)] Drug Allergy 6 [facility] Work Phone: (20 sources) umeclidinium / vilanterol; Translations: [UMECLIDINIUM-VILANT MELLISSA] Drug Allergy 1 Other: See Comments [facility] Work Phone: (20 sources) cefdinir; Translations: [CEFDINIR] Drug Allergy 3 Diarrhea [facility] Work Phone: Medications Current Medications Medication Drug Class(es) Dates Sig (Normalized) Sig (Original) azithromycin 250 mg oral tablet (20 sources) Macrolide Antimicrobial Start: 07-15-2022 End: 07-15-2023 take 1 tablet by mouth once daily azithromycin (ZITHROMAX Z-ARTIE) 250 mg tablet Take 1 tablet by mouth once daily. 30 tablet 11 07/15/2022 07/15/2023 Active Completed/Discontinued Medications Medication Drug Class(es) Dates Sig (Normalized) Sig (Original) benoxinate hydrochloride 4 mg/ml / fluorescein sodium 2.5 mg/ml ophthalmic solution (1 source) Diagnostic Dye Start: 08-08-2022 End: 08-08-2022 fluorescein-benox inate 0.25-0.4 % 1 Drop (FLURESS) benzonatate 100 mg oral capsule (20 sources) Non-narcotic Antitussive Start: 11-24-2022 End: 11-24-2022 take 1 capsule by mouth every eight hours as needed for cough and cough benzonatate (TESSALON PERLES) 100 mg capsule Indications: Acute cough Take 1 capsule by mouth three times daily as needed for cough. FOR COUGHING. 90 capsule 3 11/24/2022 Active Problems Active Problems Problem Classification Problem Date Documented Date Episodic/Chronic Anxiety disorders (1 source) Claustrophobia; Translations: [Claustrophobia] 07-29-2023 Chronic Asthma (20 sources) Mild persistent asthma; Translations: [Mild persistent asthma, uncomplicated] Onset: 09-23-2022 Chronic Cataract (20 sources) Senile cataract; Translations: [Other age-related cataract] 05-13-2021 Chronic Chronic obstructive pulmonary disease and bronchiectasis (20 sources) Bronchiectasis; Translations: [Bronchiectasis, uncomplicated] Onset: 02-03-2019 Chronic Disorders of teeth and jaw (1 source) Temporomandibular joint disorder; Translations: [Unspecified temporomandibular joint disorder, unspecified side] 08-06-2023 Episodic Other infections; including parasitic (3 sources) History of bacterial infection; Translations: [Personal history of other infectious and parasitic diseases] Episodic Other lower respiratory disease (3 sources) Cough; Translations: [Acute cough] Episodic Other lower respiratory disease (1 source) Abnormal sputum; Translations: [Abnormal sputum] Episodic Other nervous system disorders (4 sources) Numbness of face; Translations: [Anesthesia of skin] 07-29-2023 Episodic Other nervous system disorders (4 sources) Atypical facial pain; Translations: [Atypical facial pain] 07-29-2023 Episodic Other nervous system disorders (1 source) Anesthesia of skin; Translations: [Right facial numbness] Onset: 08-26-2023 Episodic Other nervous system disorders (1 source) Atypical facial pain; Translations: [Atypical facial pain] Onset: 08-25-2023 Episodic Other nutritional; endocrine; and metabolic disorders (1 source) Weight loss; Translations: [Abnormal weight loss] 06-11-2023 Episodic Other upper respiratory infections (1 source) Posterior rhinorrhea; Translations: [Postnasal drip] 06-11-2023 Episodic Retinal detachments; defects; vascular occlusion; and retinopathy (1 source) Nonexudative age-related macular degeneration; Translations: [Nonexudative age-related macular degeneration, bilateral, intermediate dry stage] Chronic Systemic lupus erythematosus and connective tissue disorders (3 sources) Temporal arteritis; Translations: [Other giant cell arteritis] Onset: 08-29-2023 08-26-2023 Chronic Unclassified (1 source) Acute cough; Translations: [Acute cough] Onset: 11-24-2022 Past or Other Problems Problem Classification Problem Date Documented Da te Episodic/Chronic Other lower respiratory disease (2 sources) Chronic cough; Translations: [Chronic cough] Onset: 01-29-2023 Episodic Other lower respiratory disease (1 source) Abnormal sputum; Translations: [Abnormal sputum] Onset: 01-29-2023 Episodic Viral infection (20 sources) Postherpetic neuralgia; Translations: [Other postherpetic nervous system involvement] Onset: 07-25-2019 07-25-2019 Episodic Results Test Name Value Interpretation Reference Range Facil ity Vital Signs Date Time Vital Sign Value Performing Clinician Faci dacia 08-06-2023 12:45-0400 Diastolic blood pressure 70 mm[Hg] Lit Herring MD Work Phone: [facility] 08-06-2023 12:45-0400 Heart rate 100 /min Lit Herring MD Work Phone: [facility] 08-06-2023 12:45-0400 Systolic blood pressure 169 mm[Hg] Lit Herring MD Work Phone: [facility] 08-06-2023 12:43-0400 Body height 160 cm Lit Herring MD Work Phone: [facility] 08-06-2023 12:43-0400 Body weight 49.44 kg Lit Herring MD Work Phone: [facility] 07-29-2023 09:31-0400 Body weight 48.72 kg Yamilka Rankiner PA-C Work Phone: [facility] 07-29-2023 09:31-0400 Diastolic blood pressure 85 mm[Hg] Yamilka Queener PA-C Work Phone: [facility] 07-29-2023 09:31-0400 Heart rate 79 /min Yamilka Queener PA-C Work Phone: [facility] 07-29-2023 09:31-0400 Respiratory rate 18 /min Yamilka Queener PA-C Work Phone: [facility] 07-29-2023 09:31-0400 SaO2% (BldA) [Mass fraction] 96 % Yamilka Queener PA-C Work Phone: [facility] 07-29-2023 09:31-0400 Systolic blood pressure 151 mm[Hg] Yamilka Queener PA-C Work Phone: [facility] 06-11-2023 09:30-0400 Body weight 47.63 kg Felicity Ayala MD Work Phone: [facility] 06-11-2023 09:30-0400 Diastolic blood pressure 74 mm[Hg] Felicity Ayala MD Work Phone: [facility] 06-11-2023 09:30-0400 Heart rate 81 /min Felicity Ayala MD Work Phone: [facility] 06-11-2023 09:30-0400 Respiratory rate 16 /min Felicity Ayala MD Work Phone: [facility] 06-11-2023 09:30-0400 SaO2% (BldA) [Mass fraction] 96 % Felicity Ayala MD Work Phone: [facility] 06-11-2023 09:30-0400 Systolic blood pressure 118 mm[Hg] Felicity Ayala MD Work Phone: [facility] 01-29-2023 12:47-0400 Body weight 48.99 kg Felicity Ayala MD Work Phone: [facility] 01-29-2023 12:47-0400 Diastolic blood pressure 70 mm[Hg] Felicity Ayala MD Work Phone: [facility] 01-29-2023 12:47-0400 Heart rate 82 /min Felicity Ayala MD Work Phone: [facility] 01-29-2023 12:47-0400 Respiratory rate 18 /min Felicity Ayala MD Work Phone: [facility] 01-29-2023 12:47-0400 SaO2% (BldA) [Mass fraction] 97 % Felicity Ayala MD Work Phone: [facility] 01-29-2023 12:47-0400 Systolic blood pressure 122 mm[Hg] Felicity Ayala MD Work Phone: [facility] 11-24-2022 10:56-0500 Body temperature 98.8 [degF] Linda Geovanny PA-C Work Phone: [facility] 11-24-2022 10:56-0500 Body weight 48.08 kg Linda Geovanny PA-C Work Phone: [facility] 11-24-2022 10:56-0500 Diastolic blood pressure 80 mm[Hg] Linda Geovanny PA-C Work Phone: [facility] 11-24-2022 10:56-0500 Heart rate 93 /min Linda Geovanny PA-C Work Phone: [facility] 11-24-2022 10:56-0500 Respiratory rate 15 /min Linda Geovanny PA-C Work Phone: [facility] 11-24-2022 10:56-0500 SaO2% (BldA) [Mass fraction] 96 % Linda Geovanny PA-C Work Phone: [facility] 11-24-2022 10:56-0500 Systolic blood pressure 138 mm[Hg] Linda Geovanny PA-C Work Phone: [facility] 09-23-2022 09:54-0500 Body weight 47.63 kg Felicity Ayala MD Work Phone: [facility] 09-23-2022 09:54-0500 Heart rate 58 /min Felicity Ayala MD Work Phone: [facility] 09-23-2022 09:54-0500 Respiratory rate 16 /min Felicity Ayala MD Work Phone: [facility] 09-23-2022 09:54-0500 SaO2% (BldA) [Mass fraction] 100 % Felicity Ayala MD Work Phone: [facility] 06-18-2022 09:36-0400 Body weight 48.08 kg Linda Geovanny PA-C Work Phone: [facility] 06-18-2022 09:36-0400 Diastolic blood pressure 82 mm[Hg] Linda Geovanny PA-C Work Phone: [facility] 06-18-2022 09:36-0400 Heart rate 86 /min Linda Geovanny PA-C Work Phone: [facility] 06-18-2022 09:36-0400 Respiratory rate 17 /min Linda Geovanny PA-C Work Phone: [facility] 06-18-2022 09:36-0400 SaO2% (BldA) [Mass fraction] 100 % Linda Geovanny PA-C Work Phone: [facility] 06-18-2022 09:36-0400 Systolic blood pressure 130 mm[Hg] Linda Geovanny PA-C Work Phone: [facility] Encounters Encounter Date Encounter Type Care Provider Facility Start: 09-15-2023 Telephone encounter Yamilka park PA-C Work Phone: Neurology Procedures Date Procedure Procedure Detail Performing Clinician Start: 09-01-2023 Duplex scan extracra nial art compl bi study Yamilka Carlos ELIAS Work Phone: Start: 08-26-2023 Mri brain brain stem w/o w/contrast material Yamilka Carlos ELIAS Work Phone: Start: 12-25-2022 Radiologic exam ches t 2 views Linda Rodriguez PA-C Work Phone: Start: 11-24-2022 Radiologic exam ches t 2 views Linda Rodriguez PA-C Work Phone: Start: 08-08-2022 Computerized ophthal дмитрий imaging retina Tee Nelson MD Work Phone: Plan of Treatment Date Care Activity Detail Author Start: 08-26-2023 End: 11-25-2023 C reactive protein [Mass/volume] in Serum or Plasma C-REACTIVE PROTEIN (CRP) Lab Routine GCA (giant cell arteritis) (HCC) Expected: 08/26/2023, Expires: 11/25/2023 [facility] Work Phone: Immunizations Immunization Date Immunization Notes Care Provider Fa charla 11-23-2020 COVID-19 vaccine, ag e 12+ yr ([employer]-Georgina Goodman - PURPLE TOP) Linda Rodriguez Work Phone: [facility] 05-13-2014 pneumococcal conjuga te vaccine, 13 valent Linda Rodriguez Work Phone: [facility] Work Phone: 05-13-2009 pneumococcal polysaccharide vaccine, 23 valent Linda Rodriguez Work Phone: [facility] Work Phone: Payers Date Payer Category Payer Medicare [employer] MEDICARE HU[employer] MEDICARE PPO [id number] 2017-Present [phone] [address] [address] [place] [address] PPO [id number] 2017 Private Health Insurance [id number] Unknown [id number] Unknown [id number] Social History Date Type Detail Facility Start: 01-21-2019 End: 06-18-2022 Tobacco smoking status NHIS Never smoked tobacco [facility] Work Phone: Start: 01-21-2019 End: 06-18-2022 Tobacco use and exposure Smokeless tobacco non-user [facility] Work Phone: Start: 01-09-2022 End: 08-31-2023 Alcohol intake Lifetime non-drinker (finding) [facility] Start: 07-02-2020 History SDOH Alcohol Frequency 1 [facility] Start: 01-21-2019 End: 06-18-2022 Tobacco Comment Childhood home; both parents smoked. [facility] Start: 1940 Sex Assigned At Not on file [facility] Start: 06-15-2022 End: 06-25-2022 Exposure to SARS-CoV-2 (event) Not sure [facility] Start: 01-29-2023 End: 06-11-2023 History of Social function [facility] Start: 01-29-2023 End: 06-11-2023 Tobacco use panel [facility] National Score (1-10 0), lower number is lower risk 51 [facility] How often to you hav e a drink containing alcohol? Never [facility] Clinical Notes 06-12-2022 to 09-15-2023 Telephone Encounter - Linda Perez RN - 09/15/2023 11:11 AM ESTTelephone Encounter - Cristiane Perry LPN - 09/15/2023 10:57 AM ESTTelephone Encounter - Cristiane Perry LPN - 09/01/2023 5:00 PM EST Note Date & Type Note Facility 09-15-2023 Miscellaneous Notes Patient calls back and notified of below. Patient voices understanding. Linda Perez RN Phone call placed x2, message left to contact a nurse [phone]. No MyChart. When patient returns call please advise of provider response. Encouraged her to follow up with Dr. Herring as she last saw him on 08/06/23 and he recommended therapies at that time. Regarding results, ultrasound of her temporal artery was normal. Inflammation markers decreased. Cristiane Perry LPN Patient calls and states that she has had several tests that were done. Patient asking provider if she can give her a final analysis with all the tests on what provider thinks the issues was. documented in this encounter [facility] 09-01-2023 Miscellaneous Notes Phone call placed patient advised provider results (see prior provider encounter) Patient verbalized understanding, agreed with plan of care requested records to be faxed to [facility]. Cristiane Perry LPN ----- Message from Yamilka Gonzalez PA-C sent at 09/01/2023 4:39 PM EST ----- Temporal artery biopsy is normal. documented in this encounter [facility] 09-01-2023 Miscellaneous Notes With labs trending downward and normal US of the temporal artery, GCA is very unlikely. Will still monitor and continue follow up as planned. documented in this encounter [facility] 09-01-2023 Miscellaneous Notes Phone call placed patient advised (see prior provider encounter) Patient verbalized understanding, agreed with plan of care, reported ultrasound completed 09/01/2023, recent eye exam Dr. Lucero. Cristiane Perry LPN Inflammation markers are decreasing, follow with primary care for possible redraw if warranted. Continue with ultrasound as planned. Low suspicion for giant cell arteritis at this time, please reach out with any questions or vision changes. documented in this encounter [facility] 09-01-2023 Note HNO ID: [id number] Author: Lit Elizabeth RT(R) Service: ? Author Type: Technologist Type: Progress Notes Filed: 09/01/2023 1:19 PM Note Text: Radiology Service Progress Note PATIENT NAME: Angelina Poole DATE OF SERVICE: September 01, 2023 TIME: 1:19 PM PATIENT IDENTITY VERIFICATION COMPLETED USING TWO (2) IDENTIFIERS: Name and Date of confirmed by patient verbally. FALL SCREENING: Has the patient had 2 falls in the last year or 1 fall with injury or currently using an Ambulatory Assistive Device (Walker, Cane, Wheelchair, Crutches, etc.)? Yes, Patient High Risk for Falls What interventions were put in place to prevent falls during this visit? Offered Assistance with Transfers/Clothing and Increased Observations by Caregivers PATIENT GENDER DATA: Female. status: status: N/A PATIENT RELEVANT IMPLANT DATA REVIEWED: Not Applicable RADIOLOGY DEPARTMENT: Ultrasound PERIPHERAL IV DATA: Not applicable SIGNED BY: RT Cassia(R) September 01, 2023 1:19 PM [facility] 09-01-2023 History of Present illness Narrative Radiology Service Progress Note PATIENT NAME: Angelina Poole DATE OF SERVICE: September 01, 2023 TIME: 1:19 PM PATIENT IDENTITY VERIFICATION COMPLETED USING TWO (2) IDENTIFIERS: Name and Date of confirmed by patient verbally. FALL SCREENING: Has the patient had 2 falls in the last year or 1 fall with injury or currently using an Ambulatory Assistive Device (Walker, Cane, Wheelchair, Crutches, etc.)? Yes, Patient High Risk for Falls What interventions were put in place to prevent falls during this visit? Offered Assistance with Transfers/Clothing and Increased Observations by Caregivers PATIENT GENDER DATA: Female. status: status: N/A PATIENT RELEVANT IMPLANT DATA REVIEWED: Not Applicable RADIOLOGY DEPARTMENT: Ultrasound PERIPHERAL IV DATA: Not applicable SIGNED BY: RT Cassia(R) September 01, 2023 1:19 PM documented in this encounter [facility] 08-31-2023 Note HNO ID: [id number] Author: Linda Rodriguez PA-C Service: ? Author Type: Physician Double End Trimmer Type: Progress Notes Filed: 08/31/2023 12:15 PM Note Text: Patient: Angelina Poole PCP: Mayco Yepez MD, MD CC: acute visit HPI: Angelina Poole 83 year old female never smoker with PMH significant for possible asthma (declined definitive ДМИТРИЙ), bronchiectasis, HTN, h/o MAC > 30 years ago (only received treatment for 6 months due to drug reaction), h/o COVID 10/2021 treated with mAb. Current treatment for bronchiectasis consists of Flovent, acapella/flutter device, Mucinex, and suppressive azithromycin therapy. She had stopped her azithromycin on her own resulting in more frequent flares. Repeat sputum cultures showed one positive culture for MAC (subsequent repeat cultures negative) and positive MSSA. Restarted azithromycin but only using twice a week. Patient was recently treated on 08/12 for exacerbation with Levaquin for 7 days. Prior to resuming her preventative Azithromycin, she had a UTI and was treated with Bactrim. She resumed Azithromycin on Thursday. Today, patient presents for an acute visit secondary to increased cough productive of green sputum, no hemoptysis. Taking Tessalon Perles at night. Does not use Mucinex/Acapella on a regular basis. No fevers or chills. Having night sweats. No chest pain or SOB. PAST MEDICAL HISTORY Diagnosis Date Age-related macular degeneration, dry Bronchiectasis (HCC) 2019 Prior patient of RV Sibilia. 2019 sputum + DONATO complex. 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 Post-nasal drip Zoster iridocyclitis Allergies: Augmentin [Amoxicil* Diarrhea Sulfa (Sulfonamide * Hives Actonel [Risedronat* Other: See Comments Comment:Difficulty swallowing Anoro Ellipta [Umec* Other: See Comments Comment:constipation Bactrim [Sulfametho* Hives Cefdinir Diarrhea Comment:diarrhea Doxycycline GI Upset Evista [Raloxifene * Myalgia Fosamax [Alendronat* Swelling Meclomen GI Upset gabapentin (NEURONTIN) 100 mg capsule Take 1 capsule by mouth three times a day for 90 days. LORazepam (ATIVAN) 0.5 mg Take one tablet 30 minutes before your MRI. omeprazole (PRILOSEC) 20 mg capsule azithromycin (ZITHROMAX) 250 mg tablet Take 250 mg by mouth two times a week. Thursday/ fluticasone (FLOVENT) 44 mcg/actuation inhaler Inhale 1 Puff as instructed twice daily. Shake well before use. Rinse mouth after use. benzonatate (TESSALON PERLES) 100 mg capsule Take 1 capsule by mouth three times daily as needed for cough. FOR COUGHING. loratadine 10 mg cap Take by mouth. timolol maleate (TIMOPTIC) 0.5 % ophthalmic solution Instill 1 drop in both eyes twice a day Mucus Clearing Device latosha Use daily as needed for secretions. lisinopril (ZESTRIL, PRINIVIL) 5 mg tablet guaiFENesin (MUCINEX) 600 mg 12 hr tablet Take 1 tablet by mouth twice daily. (Patient taking differently: Take 600 mg by mouth two times a day. as needed) vit C/E/Zn/coppr/lutein/zeaxan (PRESERVISION AREDS-2 ORAL) Take 1 capsule by mouth twice daily. cyanocobalamin (VITAMIN B-12) 1,000 mcg tab Take 1,000 mcg by mouth once daily. Cholecalciferol, Vitamin D3, 50 mcg (2,000 unit) cap Take 2,000 Units by mouth once daily. mineral oil/petrolatum,white (REFRESH LACRI-LUBE OPHTHALMIC) Use 0.4 mL in eyes four times daily. Brimonidine-Timolol (COMBIGAN) 0.2-0.5 % 1 Drop twice daily. prednisoLONE acetate (PRED FORTE, ECONOPRED PLUS) 1 % ophthalmic suspension Use 1 Drop in the left eye every other day. valACYclovir (VALTREX) 1 gram Take 500 mg by mouth once daily. 0.5 tab daily cetirizine (ZYRTEC) 10 mg tablet Take 10 mg by mouth as needed. Levothyroxine 50 mcg cap Take by mouth. Social History Tobacco Use Smoking status: Never Smokeless tobacco: Never Tobacco comments: Childhood home; both parents smoked. Vaping Use Vaping Use: Never used Substance Use Topics Alcohol use: Never Drug use: Never Family History Problem Relation Age of Onset COPD Mother Smoker Cancer Father Lung. Smoker Ischemic Heart Disease Father Cancer Sister Lung. Smoker Diabetes Brother Diabetes Brother Asthma Brother PAST SURGICAL HISTORY Procedure Laterality Date COLONOSCOPY FLX DX W/COLLJ SPEC WHEN PFRMD 08/10/2006 Colonoscopy REMV CATARACT EXTRACAP,INSERT LENS Left 2020 I reviewed the past medical history, family history, social history and surgical history with changes noted above and updated in EMR. IMMUNIZATIONS Prevnar 13 - 2013 Pneumovax - 2008 Influenza - xx COVID-19 - most recent 2020 ROS: CONSTITUTIONAL: No fevers (more content not included)... [facility] 08-31-2023 Instructions Linda Rodriguez PA-C - 08/31/2023 11:50 AM EST Take Levaquin for 5 days, if not improved you may refill the script for an additional 5 days. While on the Levaquin, do not take Azithromycin, but resume the day after you complete the Levaquin and take it three time per week. Use tessalon perles at night. Mucinex and Accapela twice daily. documented in this encounter [facility] 08-31-2023 History of Present illness Narrative Patient: Angelina Poole PCP: Mayco Yepez MD, MD CC: acute visit HPI: Angelina Poole 83 year old female never smoker with PMH significant for possible asthma (declined definitive ДМИТРИЙ), bronchiectasis, HTN, h/o MAC > 30 years ago (only received treatment for 6 months due to drug reaction), h/o COVID 10/2021 treated with mAb. Current treatment for bronchiectasis consists of Flovent, acapella/flutter device, Mucinex, and suppressive azithromycin therapy. She had stopped her azithromycin on her own resulting in more frequent flares. Repeat sputum cultures showed one positive culture for MAC (subsequent repeat cultures negative) and positive MSSA. Restarted azithromycin but only using twice a week. Patient was recently treated on 08/12 for exacerbation with Levaquin for 7 days. Prior to resuming her preventative Azithromycin, she had a UTI and was treated with Bactrim. She resumed Azithromycin on Thursday. Today, patient presents for an acute visit secondary to increased cough productive of green sputum, no hemoptysis. Taking Tessalon Perles at night. Does not use Mucinex/Acapella on a regular basis. No fevers or chills. Having night sweats. No chest pain or SOB. PAST MEDICAL HISTORY Diagnosis Date Age-related macular degeneration, dry Bronchiectasis (HCC) 2019 Prior patient of RV Sibilia. 2019 sputum + DONATO complex. 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 Post-nasal drip Zoster iridocyclitis Allergies: Augmentin [Amoxicil* Diarrhea Sulfa (Sulfonamide * Hives Actonel [Risedronat* Other: See Comments Comment:Difficulty swallowing Anoro Ellipta [Umec* Other: See Comments Comment:constipation Bactrim [Sulfametho* Hives Cefdinir Diarrhea Comment:diarrhea Doxycycline GI Upset Evista [Raloxifene * Myalgia Fosamax [Alendronat* Swelling Meclomen GI Upset gabapentin (NEURONTIN) 100 mg capsule Take 1 capsule by mouth three times a day for 90 days. LORazepam (ATIVAN) 0.5 mg Take one tablet 30 minutes before your MRI. omeprazole (PRILOSEC) 20 mg capsule azithromycin (ZITHROMAX) 250 mg tablet Take 250 mg by mouth two times a week. Thursday/ fluticasone (FLOVENT) 44 mcg/actuation inhaler Inhale 1 Puff as instructed twice daily. Shake well before use. Rinse mouth after use. benzonatate (TESSALON PERLES) 100 mg capsule Take 1 capsule by mouth three times daily as needed for cough. FOR COUGHING. loratadine 10 mg cap Take by mouth. timolol maleate (TIMOPTIC) 0.5 % ophthalmic solution Instill 1 drop in both eyes twice a day Mucus Clearing Device latosha Use daily as needed for secretions. lisinopril (ZESTRIL, PRINIVIL) 5 mg tablet guaiFENesin (MUCINEX) 600 mg 12 hr tablet Take 1 tablet by mouth twice daily. (Patient taking differently: Take 600 mg by mouth two times a day. as needed) vit C/E/Zn/coppr/lutein/zeaxan (PRESERVISION AREDS-2 ORAL) Take 1 capsule by mouth twice daily. cyanocobalamin (VITAMIN B-12) 1,000 mcg tab Take 1,000 mcg by mouth once daily. Cholecalciferol, Vitamin D3, 50 mcg (2,000 unit) cap Take 2,000 Units by mouth once daily. mineral oil/petrolatum,white (REFRESH LACRI-LUBE OPHTHALMIC) Use 0.4 mL in eyes four times daily. Brimonidine-Timolol (COMBIGAN) 0.2-0.5 % 1 Drop twice daily. prednisoLONE acetate (PRED FORTE, ECONOPRED PLUS) 1 % ophthalmic suspension Use 1 Drop in the left eye every other day. valACYclovir (VALTREX) 1 gram Take 500 mg by mouth once daily. 0.5 tab daily cetirizine (ZYRTEC) 10 mg tablet Take 10 mg by mouth as needed. Levothyroxine 50 mcg cap Take by mouth. Social History Tobacco Use Smoking status: Never Smokeless tobacco: Never Tobacco comments: Childhood home; both parents smoked. Vaping Use Vaping Use: Never used Substance Use Topics Alcohol use: Never Drug use: Never Family History Problem Relation Age of Onset COPD Mother Smoker Cancer Father Lung. Smoker Ischemic Heart Disease Father Cancer Sister Lung. Smoker Diabetes Brother Diabetes Brother Asthma Brother PAST SURGICAL HISTORY Procedure Laterality Date COLONOSCOPY FLX DX W/COLLJ SPEC WHEN PFRMD 08/10/2006 Colonoscopy REMV CATARACT EXTRACAP,INSERT LENS Left 2020 I reviewed the past medical history, family history, social history and surgical history with changes noted above and updated in EMR. IMMUNIZATIONS Prevnar - 2013 Pneumovax - 2008 Influenza - xx COVID-19 - most recent 2020 ROS: CONSTITUTIONAL: No fevers or chills. Night sweats. No unintended weight loss. HEENT: No post nasal drip, rhinorrhea, or epistaxis. No change in vision. Facial pain, following with neuro CARDIOVASCULAR: No chest pain, palpitations, orthopnea, PND, edema. PULM: See HPI GI: No dysphagia/odynophagia, problematic reflux : Recent UTI PSY: No concerns regarding depression, anxiety INTEGUMENTARY: No new skin changes or rashes PHYSICAL EXAMINATION: BP (P) 134/70 Pulse (P) 96 Resp (P) 17 Wt (P) 49.4 kg (109 lb) SpO2 (P) 93% BMI (P) 19.31 kg/m Gen: No acute distress. Cooperative with examination. HEENT: Normocephalic. Sclera, conjunctiva clear. Oral hygeine and dentition good. No thrush. Resp: No stridor, accessory respiratory muscle use, supra-sternal or intercostal retractions. No wheezes, crackles. CV: Regular rythm. Heart tones normal. Radial pulses normal. MSK: No kyphoscoliosis. Ext: Warm and well perfused. No clubbing, cyanosis, edema. Skin: No rash, ecchymoses. Neuro: Mental status normal. Affect normal. No tremor. ASSESSMENT/PLAN: 1. Bronchiectasis with acute exacerbation (HCC) - ICD9: 494.1, ICD10: J47.1 (primary diagnosis) Take Levaquin for 5 days, if not improved you may refill the script for an additional 5 days. While on the Levaquin, do not take Azithromycin, but resume the day after you complete the Levaquin and take it three time per week. Use tessalon perles at night. Mucinex and Accapela twice daily. - LEVOFLOXACIN 500 MG TABLET 2. 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 The note has been reviewed and edited and updated as necessary. Linda Rodriguez PA-C documented in this encounter [facility] 08-28-2023 Miscellaneous Notes Spoke with Dr. Lucero at [facility] regarding concerns for GCA. No abnormality was visualized on exam, optic nerve is normal, vision is stable, no tenderness over the temporal artery. ESR was WNL for patient's age but CRP was elevated, will have patient get redraw of laboratory studies as well has have temporal artery ultrasound next week as scheduled. Will start steroids should patient's inflammatory markers increase. Have patient go to the emergency department with any vision loss or changes. documented in this encounter [facility] 08-26-2023 Miscellaneous Notes TC to pt. She voiced understanding of below and is agreeable to have the ultrasound. Pt says she sees an eye doctor regularly and they have decreased her prednisone eye drops to 2 drops daily. Will request records from [facility] to determine further treatment. Erica Walker LPN MRI and MRA of the brain are normal. However, patient's inflammation marker, CRP, is elevated. This is concerning due to the location of the pain on her face for a condition called giant cell arteritis that causes inflammation to the temporal artery. If this has significant inflammation it can cause vision changes and even blindness. For further evaluation of this, I have order a consult to ophthalmology. If she cannot get in within a week let me know, I will reach out. Additionally, I have ordered a temporal artery ultrasound to look at the arteries and look for inflammation. Finally, I have ordered an additional ESR and CRP to trend her inflammation markers. Get these labs a week after the original labs. Go to ER with any vision loss. documented in this encounter [facility] 08-26-2023 Note HNO ID: [id number] Author: May Mao RT(R) Service: ? Author Type: Technologist Type: Progress Notes Filed: 08/26/2023 8:27 AM Note Text: Radiology Service Progress Note DATE OF SERVICE: August 26, 2023 TIME: 8:27 AM PATIENT IDENTITY VERIFICATION COMPLETED USING TWO (2) STANDARD IDENTIFIERS: Name and Date of confirmed by patient verbally. FALL SCREENING: Has the patient had 2 falls in the last year or 1 fall with injury or currently using an Ambulatory Assistive Device (Walker, Cane, Wheelchair, Crutches, etc.)? No PATIENT GENDER DATA: Female. status: : No status: NO. PATIENT RELEVANT IMPLANT DATA REVIEWED: Yes ALLERGIES: Reviewed and unchanged CONTRAST ALLERGY: NO. EXAM: MRI - CONTRAST TYPE: GROUP II PERIPHERAL IV DATA: Ambulatory: A peripheral IV was started in the Right forearm with a Angio cath: 24 gauge. RADIOLOGY DEPARTMENT: MR; Exam(s) Completed: Head: Cranial Nerve, [place] MRA SIGNATURE: RT Rosina(R) PATIENT NAME: Angelina Poole DATE: August 26, 2023 TIME: 8:27 AM [facility] 08-26-2023 History of Present illness Narrative Radiology Service Progress Note DATE OF SERVICE: August 26, 2023 TIME: 8:27 AM PATIENT IDENTITY VERIFICATION COMPLETED USING TWO (2) STANDARD IDENTIFIERS: Name and Date of confirmed by patient verbally. FALL SCREENING: Has the patient had 2 falls in the last year or 1 fall with injury or currently using an Ambulatory Assistive Device (Walker, Cane, Wheelchair, Crutches, etc.)? No PATIENT GENDER DATA: Female. status: : No status: NO. PATIENT RELEVANT IMPLANT DATA REVIEWED: Yes ALLERGIES: Reviewed and unchanged CONTRAST ALLERGY: NO. EXAM: MRI - CONTRAST TYPE: GROUP II PERIPHERAL IV DATA: Ambulatory: A peripheral IV was started in the Right forearm with a Angio cath: 24 gauge. RADIOLOGY DEPARTMENT: MR; Exam(s) Completed: Head: Cranial Nerve, [place] MRA SIGNATURE: RT Rosina(R) PATIENT NAME: Angelina Poole DATE: August 26, 2023 TIME: 8:27 AM documented in this encounter [facility] 08-13-2023 Miscellaneous Notes sent in a script for Levaquin for 7 days. Patient should hold her Azithromycin while on Levaquin. If this does not clear it up will need her to come in to the office. Pulmonary medicine. No further action. Cristiane Perry LPN Pt calling as she started Gabapentin on the or . Had been taking it three times a day. She noticed last week that she started with night sweats and has occurred probably 5 out of 7 nights. She is wondering if the Gabapentin could be causing the night sweats. Pt states she has a hx of bronchiectasis and wonders if that could be acting up. Pt notices a lack of energy and states that is not normal for her. She wanted to let Yamilka know that she also saw Dr. Herring at [facility] last week and he felt her facial pain is from TMJ. Pt doesn't think that is what it is from. She states that she takes a couple of Aleve every day with a Tylenol in between and that relieves the facial and head pain. Her MRI is scheduled for 08/26. Also upon asking pt about her Gabapentin, she states that she doesn't think it is helping with the pain and it makes her dizzy. So yesterday she stopped the 3 times a day and only took it at night before bed. When she has the night sweats, she wakes up very wet especially on her arms and chest. Wanting to know if Yamilka thinks these sweats could be caused by the Gabapentin and also asking if she should call her kiln stoker to let him know about this. Pt instructed that it wouldn't hurt to call him as well to update him. documented in this encounter [facility] 08-12-2023 Miscellaneous Notes Patient notified RX sent. Advised to call Thursday if sx are not improving. Leah Ruiz LPN I sent in a script for Levaquin for 7 days. Patient should hold her Azithromycin while on Levaquin. If this does not clear it up will need her to come in to the office. Shayy Patient called. Verified name and date of . States call today is not related to yesterdays call. Reports having had a cough for a week or better. Is coughing up light greenish sputum. Was having night sweats but since she stopped Neurontin that has stopped. Decreased appetite, low energy level. No fever. Patient is asking for antibiotic for treatment. Please review and advise. Melissa Noriega LPN documented in this encounter [facility] 08-11-2023 Miscellaneous Notes Patient has call to neurology re: same. Will copy PA on this encounter. Leah Ruiz LPN Images from the original note were not included. Felicity Ayala MD You 2 hours ago (11:35 AM) Just started gabapentin for TMJ. Are her symptoms concomitant with starting the medication. If so she will need to speak with prescriber. Pt. calling in with c/o night sweats, head pain possible congestion. States she is not sure if this is related to her medication (specifically Gabapentin)or pulmonary issues. States she also called Yamilka Gonzalez's office today with same concerns. Pt would like a call back from Johanna or someone in Pulm office to discuss. Thank you. Natalie Leslie RN documented in this encounter [facility] 08-06-2023 Note HNO ID: [id number] Author: Lit Herring MD Service: ? Author Type: Physician Type: Progress Notes Filed: 08/06/2023 2:02 PM Note Text: Headache Clinic Date: August 06, 2023 Patient Name: Angelina Poole Referring physician: No referring provider defined for this encounter. Primary physician: MD Kayley [place] [address] Reason for Evaluation: Facial pain HPI: 83-year-old female with a history of bronchiectasis presents for evaluation of facial pain. She was just recently seen by Yamilka Gonzalez PA-C, on 07/29/2023. She is accompanied by her daughter. About 4 years ago she developed shingles over the left eye. She was having excruciating pains around that time but they gradually resolved. She has been on valacyclovir ever since. She essentially free of pain for several years until this fall. On 06/03/2023 she had a tooth extraction of the left side. This went well without any issues. Then in early June she began experiencing electric pains in the left tenriism. She believes that this is related to recurrence of shingles. She saw her enrichment director who told her that there was inflammation and gave her eyedrops. Sometime later she began developing occipital head pain bilaterally. Then in July 2023 she began experiencing right facial pain just below her eye. She states that this just began one day and persisted. She describes an aching pain that was constant of 10 out of 10 intensity and the only thing that would help is when she heated up a rice bag and applied pressure with it. Besides pain, she also noticed numbness of that area which she describes as feeling like the area is . She denies any tingling. She saw her PCP and was given muscle relaxant without any benefit. When she saw Yamilka an MRI of the brain and MRA were ordered as well as labs to check for GCA. She was all started gabapentin 100 mg 3 times daily. Gabapentin has helped the pain in combination with Aleve and Tylenol. However, she could not tolerate any dose higher than 100 3 times daily as she got nauseated and dizzy. Her current symptoms are as follows: -Left tenriism electric/zapping pains, usually only at night, 1/10 in intensity and not bothersome to her. -Bilateral occipital pain, present much of the time, of about 4/10 intensity, not bothersome to her. -Right facial pain accompanied by numbness, constant, previously 10/10 intensity but now 4-5/10. Patient states that she was previously scheduled to see me but wanted an earlier appointment which was why she established with Yamilka. She decided to keep this appointment to see if I had any other input on her case. The patient denies any worsening of the pain with chewing or swallowing but does state that when she chews she tries to be careful as it is a bit tender. She does have difficulty opening her mouth. There is no worsening of pain with touching the area or applying cold temperature to it. She denies any significant neck pain. Current prophylactics: Gabapentin 100mg TID. Current abortives: Tylenol, Aleve SOCIAL HISTORY Smoking: None Occupation: Retired hairdresser OUTPATIENT MEDICATIONS Current Outpatient Medications on File Prior to Visit Medication Sig gabapentin (NEURONTIN) 100 mg capsule Take 1 capsule by mouth three times a day for 90 days. LORazepam (ATIVAN) 0.5 mg Take one tablet 30 minutes before your MRI. omeprazole (PRILOSEC) 20 mg capsule azithromycin (ZITHROMAX) 250 mg tablet Take 250 mg by mouth two times a week. Thursday/ fluticasone (FLOVENT) 44 mcg/actuation inhaler Inhale 1 Puff as instructed twice daily. Shake well before use. Rinse mouth after use. benzonatate (TESSALON PERLES) 100 mg capsule Take 1 capsule by mouth three times daily as needed for cough. FOR COUGHING. loratadine 10 mg cap Take by mouth. timolol maleate (TIMOPTIC) 0.5 % ophthalmic solution Instill 1 drop in both eyes twice a day Mucus Clearing Device latosha Use daily as needed for secretions. lisinopril (ZESTRIL, PRINIVIL) 5 mg tablet guaiFENesin (MUCINEX) 600 mg 12 hr tablet Take 1 tablet by mouth twice daily. (Patient taking differently: Take 600 mg by mouth two times a day. as needed) vit C/E/Zn/coppr/lutein/zeaxan (PRESERVISION AREDS-2 ORAL) Take 1 capsule by mouth twice daily. cyanocobalamin (VITAMIN B-12) 1,000 mcg tab Take 1,000 mcg by mouth once daily. Cholecalciferol, Vitamin D3, 50 mcg (2,000 unit) cap Take 2,000 Units by mouth once daily. mineral oil/petrolatum,white (REFRESH LACRI-LUBE OPHTHALMIC) Use 0.4 mL in eyes four times daily. Brimonidine-Timolol (COMBIGAN) 0.2-0.5 % 1 Drop twice daily. prednisoLONE acetate (PRED FORTE, ECONOPRED PLUS) 1 % ophthalmic suspension Use 1 Drop in the left eye every other day. valACYclovir (VALTREX) 1 gram Take 500 mg by mouth once daily. 0.5 tab daily c (more content not included)... [facility] 08-06-2023 Instructions Lit Herring MD - 08/06/2023 1:41 PM EDT Referral for physical therapy for TMJ Get MRI and labs as planned Check CT TMJ Discuss mouth guard with dentist Continue gabapentin and anti-inflammatories as planned Other options can be considered for neuropathic pain if gabapentin ineffective Keep follow-up with Yamilka Gonzalez PA-C documented in this encounter [facility] 08-06-2023 History of Present illness Narrative Images from the original note were not included. Headache Clinic Date: August 06, 2023 Patient Name: Angelina Poole Referring physician: No referring provider defined for this encounter. Primary physician: MD Kayley Charles [address] [place] [address] Reason for Evaluation: Facial pain HPI: 83-year-old female with a history of bronchiectasis presents for evaluation of facial pain. She was just recently seen by Yamilka Gonzalez PA-C, on 07/29/2023. She is accompanied by her daughter. About 4 years ago she developed shingles over the left eye. She was having excruciating pains around that time but they gradually resolved. She has been on valacyclovir ever since. She essentially free of pain for several years until this fall. On 06/03/2023 she had a tooth extraction of the left side. This went well without any issues. Then in early June she began experiencing electric pains in the left tenriism. She believes that this is related to recurrence of shingles. She saw her enrichment director who told her that there was inflammation and gave her eyedrops. Sometime later she began developing occipital head pain bilaterally. Then in July 2023 she began experiencing right facial pain just below her eye. She states that this just began one day and persisted. She describes an aching pain that was constant of 10 out of 10 intensity and the only thing that would help is when she heated up a rice bag and applied pressure with it. Besides pain, she also noticed numbness of that area which she describes as feeling like the area is . She denies any tingling. She saw her PCP and was given muscle relaxant without any benefit. When she saw Yamilka an MRI of the brain and MRA were ordered as well as labs to check for GCA. She was all started gabapentin 100 mg 3 times daily. Gabapentin has helped the pain in combination with Aleve and Tylenol. However, she could not tolerate any dose higher than 100 3 times daily as she got nauseated and dizzy. Her current symptoms are as follows: -Left tenriism electric/zapping pains, usually only at night, 1/10 in intensity and not bothersome to her. -Bilateral occipital pain, present much of the time, of about 4/10 intensity, not bothersome to her. -Right facial pain accompanied by numbness, constant, previously 10/10 intensity but now 4-5/10. Patient states that she was previously scheduled to see me but wanted an earlier appointment which was why she established with Yamilka. She decided to keep this appointment to see if I had any other input on her case. The patient denies any worsening of the pain with chewing or swallowing but does state that when she chews she tries to be careful as it is a bit tender. She does have difficulty opening her mouth. There is no worsening of pain with touching the area or applying cold temperature to it. She denies any significant neck pain. Current prophylactics: Gabapentin 100mg TID. Current abortives: Tylenol, Aleve SOCIAL HISTORY Smoking: None Occupation: Retired hairdresser OUTPATIENT MEDICATIONS Current Outpatient Medications on File Prior to Visit Medication Sig gabapentin (NEURONTIN) 100 mg capsule Take 1 capsule by mouth three times a day for 90 days. LORazepam (ATIVAN) 0.5 mg Take one tablet 30 minutes before your MRI. omeprazole (PRILOSEC) 20 mg capsule azithromycin (ZITHROMAX) 250 mg tablet Take 250 mg by mouth two times a week. Thursday/ fluticasone (FLOVENT) 44 mcg/actuation inhaler Inhale 1 Puff as instructed twice daily. Shake well before use. Rinse mouth after use. benzonatate (TESSALON PERLES) 100 mg capsule Take 1 capsule by mouth three times daily as needed for cough. FOR COUGHING. loratadine 10 mg cap Take by mouth. timolol maleate (TIMOPTIC) 0.5 % ophthalmic solution Instill 1 drop in both eyes twice a day Mucus Clearing Device latosha Use daily as needed for secretions. lisinopril (ZESTRIL, PRINIVIL) 5 mg tablet guaiFENesin (MUCINEX) 600 mg 12 hr tablet Take 1 tablet by mouth twice daily. (Patient taking differently: Take 600 mg by mouth two times a day. as needed) vit C/E/Zn/coppr/lutein/zeaxan (PRESERVISION AREDS-2 ORAL) Take 1 capsule by mouth twice daily. cyanocobalamin (VITAMIN B-12) 1,000 mcg tab Take 1,000 mcg by mouth once daily. Cholecalciferol, Vitamin D3, 50 mcg (2,000 unit) cap Take 2,000 Units by mouth once daily. mineral oil/petrolatum,white (REFRESH LACRI-LUBE OPHTHALMIC) Use 0.4 mL in eyes four times daily. Brimonidine-Timolol (COMBIGAN) 0.2-0.5 % 1 Drop twice daily. prednisoLONE acetate (PRED FORTE, ECONOPRED PLUS) 1 % ophthalmic suspension Use 1 Drop in the left eye every other day. valACYclovir (VALTREX) 1 gram Take 500 mg by mouth once daily. 0.5 tab daily cetirizine (ZYRTEC) 10 mg tablet Take 10 mg by mouth as needed. Levothyroxine 50 mcg cap Take by mouth. No current facility-administered medications on file prior to visit. MEDICAL HISTORY PAST MEDICAL HISTORY Diagnosis Date Age-related macular degeneration, dry Bronchiectasis (HCC) 2018 Prior patient of [facility] Sibilia. 2019 sputum + DONATO complex. 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 Post-nasal drip Zoster iridocyclitis SURGICAL HISTORY PAST SURGICAL HISTORY Procedure Laterality Date COLONOSCOPY FLX DX W/COLLJ SPEC WHEN PFRMD 08/10/2006 Colonoscopy REMV CATARACT EXTRACAP,INSERT LENS Left 2020 FAMILY HISTORY FAMILY HISTORY Problem Relation Age of Onset COPD Mother Smoker Cancer Father Lung. Smoker Ischemic Heart Disease Father Cancer Sister Lung. Smoker Diabetes Brother Diabetes Brother Asthma Brother ALLERGIES ALLERGIES Allergen Reactions Augmentin [Amoxicil* Diarrhea Sulfa (Sulfonamide * Hives Actonel [Risedronat* Other: See Comments Difficulty swallowing Anoro Ellipta [Umec* Other: See Comments constipation Bactrim [Sulfametho* Hives Cefdinir Diarrhea diarrhea Doxycycline GI Upset Evista [Raloxifene * Myalgia Fosamax [Alendronat* Swelling Meclomen GI Upset REVIEW OF SYSTEMS: A 10-point review of systems was obtained and is negative except as per HPI above. KP review: No flowsheet data found. No flowsheet data found. No flowsheet data found. No flowsheet data found. No flowsheet data found. OBJECTIVE PHYSICAL EXAM: BP 169/70 (BP Site: Left Arm, BP Position: Sitting, BP Cuff Size: Regular Adult) Pulse 100 Ht 160 cm (5' 3 ) Wt 49.4 kg (109 lb) BMI 19.31 kg/m Mental Status: Alert and oriented to person, place and time. Affect is normal. Speech is normal in rate, volume and articulation. Short and termite renewal inspector memory, cognition and general fund of knowledge are good. Attention span and concentration are excellent. Cranial Nerves: II-Visual araya are full. Funduscopic examination reveals no papilledema. Venous pulsations present. III, IV, -EOMI, PERRL, ptosis noted OS (chronic per patient) nystagmus absent, V-normal facial sensation to light touch. VII-face is symmetric without evidence of weakness. VIII-hearing intact. IX, X-palate elevates symmetrically. XI-SCM 5/5. XII-tongue protrudes midline with normal movements. No atrophy or fasciculations of the tongue. No TTP over b/l ELIJAH. There is TTP over right TMJ. Motor: Normal muscle tone and bulk. No evidence of atrophy or fasciculations. Strength is normal, 5/5. Sensation: normal light touch in the upper and lower extremities. Cerebellar: No ataxia. Tremor: absent. Muscle stretch reflexes are 2+ and symmetrical. Gait examination is normal. ASSESSMENT: 83-year-old female with multiple pains as described above. She does report dull occipital pains not consistent with occipital neuralgia but these are not bothersome to her, and her left-sided electric pain is also extremely mild and not bothersome. The focus of today's visit is her right facial pain which was previously quite severe though it has improved with medications as above. Her symptoms are not suggestive of trigeminal neuralgia. They may be consistent with atypical facial pain but given the pain distribution, tenderness to palpation over the temporomandibular joints, and difficulty opening her mouth, my suspicion is higher for temporomandibular disorder. She is pending an MRI of the brain and MRA which will rule out secondary causes. I will also evaluate for vascular compression of the trigeminal nerve but even if this is found I would not recommend surgical evaluation as she does not have typical TN. I will add on a CT of the temporomandibular joint. I recommend she discuss a mouthguard with her dentist and will refer her for physical therapy of the TMJ. She can continue gabapentin and anti-inflammatories for now. If gabapentin is not beneficial she can potentially try Tegretol or a low-dose TCA. I do recommend she get ESR and CRP checked as ordered although suspicion for giant cell arteritis is exceedingly low. She can keep her follow-up with Yamilka as scheduled. All questions were answered PLAN: Referral for physical therapy for TMJ Get MRI and labs as planned Check CT TMJ Discuss mouth guard with dentist Continue gabapentin and anti-inflammatories as planned Keep follow-up with Yamilka Gonzalez PA-C - to call sooner if any questions or concerns I spent 45 minutes in this visit, with more than 50% of the time devoted to patient counseling and coordination of care. My impression and recommendations were discussed at length with the patient (and family members, if present). The patient and family (if present) voiced understanding to my recommendations. All questions were answered. The patient was provided with a detailed after visit summary highlighting my impression and recommendations (if seen in outpatient setting). Lit Herring MD Staff, [facility] [place] Board Certified in Adult Neurology by [employer] Board Certified in Headache Medicine by [facility] Clinical Outdoor Emergency Care Technician of Neurology with [facility] [address] Office: [phone] Portions of this note have been composed using voice recognition and may contain social organization professor errors The results of this consult will be sent to the referring provider by either electronic medical record or standard mail. CC: Referring Physician: No referring provider defined for this encounter. PCP: Mayco Yepez MD [address] [place] [address] documented in this encounter [facility] 07-29-2023 Miscellaneous Notes TC to pt who voiced understanding and will get labs done. Erica Walker LPN Forgot to mention getting two laboratory studies looking for signs of inflammation called CRP and ESR. She can get these done at any time. documented in this encounter [facility] 07-29-2023 Note HNO ID: [id number] Author: Erica Walker LPN Service: ? Author Type: LICENSED NURSE Type: Progress Notes Filed: 07/29/2023 1:06 PM Note Text: There is no data to display for this encounter [facility] 07-29-2023 Note HNO ID: [id number] Author: Yamilka Gonzalez PA-C Service: ? Author Type: Physician Double End Trimmer Type: Progress Notes Filed: 07/29/2023 1:06 PM Note Text: Neurology Outpatient Clinic Date: July 29, 2023 Patient Name: Angelina Poole Referring physician: No referring provider defined for this encounter. Primary physician: Mayco Yepez MD [address] [place] [address] Reason for Evaluation: Headaches Subjective HPI Angelina Poole is a 83 year old right-handed female who presents for evaluation of headache. Dr. Mayco Yepez MD, MD is the PCP. Chart review: Telephone encounter 07/27/23 noted patient complaining of facial pain, patient with history of shingles however, pain is different to the back of her head. Pain is constant and having numbness to the right face and difficulty with opening her mouth. No imaging. Patient presents for evaluation of facial pain. Patient notes that 4 years ago she had shingles on the left of her face. At that time she had sharp shooting lancing pain to the face, is currently still taking valacyclovir for maintenance. On June 03 she had a left-sided tooth extraction that went well without any complications. Notes that a few weeks later she began to experience some pain to the back of the head, followed her primary care who said it was occipital neuralgia. She was given a 5-day Medrol Dosepak with resolution of her symptoms. Notes that did come back a few days later but much more mild. Then she saw her eye doctor on July 07, they noted some possible inflammation and swelling in the back of the left eye where she previously had shingles present. She was then sent to a retinal specialist, started on steroid eyedrops and is scheduled for follow-up August 12 for this issue. She then notes that around July as well as she started to have right-sided numbness and pain to the face. Was seen by her primary care provider and was given a muscle relaxer with no improvement. No other symptoms on this began including vision changes, facial droop, slurred speech, drooling, unilateral weakness or any other strokelike symptoms. No history of stroke in the past. Notes that the numbness is constant and has difficulty open the jaw, states that it is uncomfortable when she opens her jaw but not significantly painful. Notes that it is always there, does not seem to exacerbate with light touch, brushing her teeth, chewing or opening closing the jaw. Describes it as a aching pain, not similar to her previous shingles which was stabbing and sharp. No overlying rash. Has been taking Aleve twice a day for this which makes it much more tolerable, also uses a hot pack which does seem to also help. Denies any change in her taste or smell. No recent viral infection, vaccine or medication change. ROS Review of Systems CONSTITUTIONAL: No reported fevers, chills, night sweats, or significant unintentional weight loss. EYES: No visual changes indicated. No eye pain or orbital swelling reported. HEENT: No hearing changes or vertiginous symptoms indicated. No history of nose bleeds reported. RESPIRATORY: No reported cough, wheezing and dyspnea. CARDIOVASCULAR: Negative for significant chest pain, and palpitations per report. GI: Negative for significant abdominal discomfort, blood in stools or black stools reported. No recent reported change in bowel habits. : No reported history of incontinence. No dark/cola colored urine reported. MUSCLOSKELETAL: No history of significant joint pain or swelling, or myalgias reported. SKIN: Negative for pertinent lesions, rash, and itching per report. HEMATOLOGY/ONCOLOGY: Negative for reported prolonged bleeding, bruising easily, and swollen nodes. ENDOCRINE: Negative for reported significant cold or heat intolerance, no reported goitrous neck swelling or polydipsia PSYCH: No reported depression or anxiety symptoms. No reported SI or HI. NEURO: Per HPI above. Medications: Current Outpatient Medications Medication Sig Dispense Refill omeprazole (PRILOSEC) 20 mg capsule azithromycin (ZITHROMAX) 250 mg tablet Take 250 mg by mouth two times a week. Thursday/ fluticasone (FLOVENT) 44 mcg/actuation inhaler Inhale 1 Puff as instructed twice daily. Shake well before use. Rinse mouth after use. 1 Each 5 benzonatate (TESSALON PERLES) 100 mg capsule Take 1 capsule by mouth three times daily as needed for cough. FOR COUGHING. 90 capsule 3 timolol maleate (TIMOPTIC) 0.5 % ophthalmic solution Instill 1 drop in both eyes twice a day Mucus Clearing Device latosha Use daily as needed for secretions. 1 Each 5 lisinopril (ZESTRIL, PRINIVIL) 5 mg tablet guaiFENesin (MUCINEX) 600 mg 12 hr tablet Take 1 tablet by mouth twice daily. (Patient taking differently: Take 600 mg by mouth two times a day. as needed) 60 tablet 5 vit (more content not included)... [facility] 07-29-2023 Instructions Yamilka Gonzalez PA-C - 07/29/2023 10:08 AM EDT MRI and MRA of the brain Start gabapentin 100mg up to three times a day Ativan 0.5mg 30 minutes before the scan (do not mix with alcohol and do not drive afterwards) Follow up after testing documented in this encounter [facility] 07-29-2023 History of Present illness Narrative There is no data to display for this encounter Images from the original note were not included. Neurology Outpatient Clinic Date: July 29, 2023 Patient Name: Angelina Poole Referring physician: No referring provider defined for this encounter. Primary physician: MD Kayley Charles [address] [place] [address] Reason for Evaluation: Headaches Subjective HPI Angelina Poole is a 83 year old right-handed female who presents for evaluation of headache. Dr. Mayco Yepez MD, MD is the PCP. Chart review: Telephone encounter 07/27/23 noted patient complaining of facial pain, patient with history of shingles however, pain is different to the back of her head. Pain is constant and having numbness to the right face and difficulty with opening her mouth. No imaging. Patient presents for evaluation of facial pain. Patient notes that 4 years ago she had shingles on the left of her face. At that time she had sharp shooting lancing pain to the face, is currently still taking valacyclovir for maintenance. On June 03 she had a left-sided tooth extraction that went well without any complications. Notes that a few weeks later she began to experience some pain to the back of the head, followed her primary care who said it was occipital neuralgia. She was given a 5-day Medrol Dosepak with resolution of her symptoms. Notes that did come back a few days later but much more mild. Then she saw her eye doctor on July 07, they noted some possible inflammation and swelling in the back of the left eye where she previously had shingles present. She was then sent to a retinal specialist, started on steroid eyedrops and is scheduled for follow-up August 12 for this issue. She then notes that around July as well as she started to have right-sided numbness and pain to the face. Was seen by her primary care provider and was given a muscle relaxer with no improvement. No other symptoms on this began including vision changes, facial droop, slurred speech, drooling, unilateral weakness or any other strokelike symptoms. No history of stroke in the past. Notes that the numbness is constant and has difficulty open the jaw, states that it is uncomfortable when she opens her jaw but not significantly painful. Notes that it is always there, does not seem to exacerbate with light touch, brushing her teeth, chewing or opening closing the jaw. Describes it as a aching pain, not similar to her previous shingles which was stabbing and sharp. No overlying rash. Has been taking Aleve twice a day for this which makes it much more tolerable, also uses a hot pack which does seem to also help. Denies any change in her taste or smell. No recent viral infection, vaccine or medication change. ROS Review of Systems CONSTITUTIONAL: No reported fevers, chills, night sweats, or significant unintentional weight loss. EYES: No visual changes indicated. No eye pain or orbital swelling reported. HEENT: No hearing changes or vertiginous symptoms indicated. No history of nose bleeds reported. RESPIRATORY: No reported cough, wheezing and dyspnea. CARDIOVASCULAR: Negative for significant chest pain, and palpitations per report. GI: Negative for significant abdominal discomfort, blood in stools or black stools reported. No recent reported change in bowel habits. : No reported history of incontinence. No dark/cola colored urine reported. MUSCLOSKELETAL: No history of significant joint pain or swelling, or myalgias reported. SKIN: Negative for pertinent lesions, rash, and itching per report. HEMATOLOGY/ONCOLOGY: Negative for reported prolonged bleeding, bruising easily, and swollen nodes. ENDOCRINE: Negative for reported significant cold or heat intolerance, no reported goitrous neck swelling or polydipsia PSYCH: No reported depression or anxiety symptoms. No reported SI or HI. NEURO: Per HPI above. Medications: Current Outpatient Medications Medication Sig Dispense Refill omeprazole (PRILOSEC) 20 mg capsule azithromycin (ZITHROMAX) 250 mg tablet Take 250 mg by mouth two times a week. Thursday/ fluticasone (FLOVENT) 44 mcg/actuation inhaler Inhale 1 Puff as instructed twice daily. Shake well before use. Rinse mouth after use. 1 Each 5 benzonatate (TESSALON PERLES) 100 mg capsule Take 1 capsule by mouth three times daily as needed for cough. FOR COUGHING. 90 capsule 3 timolol maleate (TIMOPTIC) 0.5 % ophthalmic solution Instill 1 drop in both eyes twice a day Mucus Clearing Device latosha Use daily as needed for secretions. 1 Each 5 lisinopril (ZESTRIL, PRINIVIL) 5 mg tablet guaiFENesin (MUCINEX) 600 mg 12 hr tablet Take 1 tablet by mouth twice daily. (Patient taking differently: Take 600 mg by mouth two times a day. as needed) 60 tablet 5 vit C/E/Zn/coppr/lutein/zeaxan (PRESERVISION AREDS-2 ORAL) Take 1 capsule by mouth twice daily. cyanocobalamin (VITAMIN B-12) 1,000 mcg tab Take 1,000 mcg by mouth once daily. Cholecalciferol, Vitamin D3, 50 mcg (2,000 unit) cap Take 2,000 Units by mouth once daily. mineral oil/petrolatum,white (REFRESH LACRI-LUBE OPHTHALMIC) Use 0.4 mL in eyes four times daily. Brimonidine-Timolol (COMBIGAN) 0.2-0.5 % 1 Drop twice daily. prednisoLONE acetate (PRED FORTE, ECONOPRED PLUS) 1 % ophthalmic suspension Use 1 Drop in the left eye every other day. valACYclovir (VALTREX) 1 gram Take 500 mg by mouth once daily. 0.5 tab daily cetirizine (ZYRTEC) 10 mg tablet Take 10 mg by mouth as needed. Levothyroxine 50 mcg cap Take by mouth. iv contrast (will be provided with radiology test) MRI Brain Inject, intravenously, once for 1 dose.No IV access, insert saline lock prior to beginning of sedation, infusion, injection of imaging exam.Discontinue saline lock post exam. If Pt. has a central line or IVAD, may access for administration according to line specific nursing protocol.Once exam is complete flush line and de-access according to line specific nursing protocol in the MR contrast administration guidelines link 1 Each 0 gabapentin (NEURONTIN) 100 mg capsule Take 1 capsule by mouth three times a day for 90 days. 90 capsule 2 LORazepam (ATIVAN) 0.5 mg Take one tablet 30 minutes before your MRI. 1 tablet 0 loratadine 10 mg cap Take by mouth. (Patient not taking: Reported on 06/11/2023) No current facility-administered medications for this visit. ALLERGIES Allergen Reactions Augmentin [Amoxicil* Diarrhea Sulfa (Sulfonamide * Hives Actonel [Risedronat* Other: See Comments Difficulty swallowing Anoro Ellipta [Umec* Other: See Comments constipation Bactrim [Sulfametho* Hives Cefdinir Diarrhea diarrhea Doxycycline GI Upset Evista [Raloxifene * Myalgia Fosamax [Alendronat* Swelling Meclomen GI Upset Past Medical History: PAST MEDICAL HISTORY Diagnosis Date Age-related macular degeneration, dry Bronchiectasis (HCC) 2019 Prior patient of [facility] Sibilia. 2019 sputum + DONATO complex. 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 Post-nasal drip Zoster iridocyclitis Family History: FAMILY HISTORY Problem Relation Age of Onset COPD Mother Smoker Cancer Father Lung. Smoker Ischemic Heart Disease Father Cancer Sister Lung. Smoker Diabetes Brother Diabetes Brother Asthma Brother Also includes: . Social History: Social History Tobacco Use Smoking status: Never Smokeless tobacco: Never Tobacco comments: Childhood home; both parents smoked. Vaping Use Vaping Use: Never used Substance Use Topics Alcohol use: Never Drug use: Never Objective 07/29/23 0931 BP: 151/85 Pulse: 79 Resp: 18 SpO2: 96% Weight: 48.7 kg (107 lb 6.4 oz) Physical Examination General Appearance: Well appearing, alert, in no acute distress, well-hydrated, well nourished. Head: Normocephalic Pulm: Breathing comfortably Neck: Supple Psych: Cooperative, appropriate affect Neurological Examination: Mental Status: Alert and Oriented to Place, Person, Time and Situation and Patient follows commands.. Language: Is intact to Comprehension, Fluency and Repetition Cranial Nerves: CNII: Visual acuity normal, visual araya full to confrontation CNIII, IV, : Left pupil at 3 mm, right at 2.5 mm, both reactive. No nystagmus CN V: Dulled sensation overlying the right side of the face, but intact to temperature bilaterally and equally. CN VII: Facial muscles symmetric and strong CN VIII: Hears finger rub well bilaterally CN IX: Gag Reflex not examined CN X: Palate elevates symmetrically CN XI: Full strength shoulder shrug bilaterally CN XII: Tongue protrusion full and midline Motor Exam: Tone - Normal Tone noted in all extremities Bulk - Normal bulk noted in all muscles tested. Inspection - Normal, no fasciculations or tremors noted. Power: MUSCLES Upper Extremity RIGHT LEFT Deltoid 5/5 5/5 Biceps 5/5 5/5 Triceps 5/5 5/5 Wrist Extension 5/5 5/5 Wrist Flexion 5/5 5/5 Finger Flexion 5/5 5/5 Finger Extension 5/5 5/5 Finger Abd 5/5 5/5 Finger Add 5/5 5/5 MUSCLES Lower Extremity RIGHT LEFT Hip Flexion 5/5 5/5 Hip Extension 5/5 5/5 BiFem (Knee Flex) 5/5 5/5 Quads (Knee Ext) 5/5 5/5 Gastroc (Plantflx) 5/5 5/5 TibAnt (Dorsiflx) 5/5 5/5 FlxHLong (Toe Flex) 5/5 5/5 ExtHLong (Toe Ext) 5/5 5/5 Sensory Examination Sensation is intact to light touch throughout. Negative extinction to double simultaneous stimulation Reflexes Right Left Bicep /4 2/4 Tricep /4 2/4 BrRad 2/ 2/4 Knee 2/4 2/4 Ankle 2/4 2/4 Doty Response Negative Negative Coordination: finger-to- nose-finger intact bilaterally and [id number] intact bilaterally. Gait: Patient's gait is normal, can heel and toe walk and can tandem walk Romberg: Negative DATA REVIEWED Actual films/image/tracing reviewed and summarized as follows: None available Old records reviewed and summarized as follows: Primary care Assessment/Plan Assessment & Plan: Angelina Poole is a 83 year old right-handed female with a history of shingles, asthma. Her examination demonstrates decreased sensation of the right side of the face to light touch but intact temperature, asymmetric pupils but patient currently taking steroid eyedrops daily. No facial muscle asymmetry. Patient with 6 days of right sided facial numbness and pain described as an aching sensation. Notes history of left-sided shingles 4 years ago, currently taking valacyclovir. Notes her symptoms started after she got her tooth pulled in May on the left side, she then was experiencing posterior head pain, diagnosed with occipital neuralgia by her primary care. Was given a 5-day steroid taper at that time with complete resolution of her symptoms. Then she followed up with her eye doctor due to history of shingles in the eye, was found to have some mild inflammation. Was then sent to a retinal specialist and started on steroid eyedrops with follow-up in August 12. On July 23 she began experiencing right-sided facial numbness and aching pain that is constant but not necessarily worsened by chewing, light touch, brushing her teeth or speaking. Notes that is acutely different type of pain than her previous shingles as this was a stabbing and sharp. No overlying rash, do appreciate some sensation differences between the right and left side but intact temperature. Also notes some asymmetry of her pupils but this may be related to her steroid eyedrops. No other strokelike symptoms including vision changes, slurred speech, drooling, facial weakness, asymmetric weakness, etc. No history of stroke in the past. At this time, will order MRI of the brain with and without contrast specifically of the face cranial nerve, will also order MRA of the brain specifically looking for any vascular loop of vascular anomaly contributing to patient's symptoms. Patient does note significant claustrophobia, will prescribe 0.5 mg of Ativan to take prior to her MRI. Discussed common side effects, discussed not taking this with alcohol, discussed needing a ride to drive her home afterwards. Patient agrees and understands. Low suspicion for GCA but due to patient's age will order CRP and ESR. For patient's symptoms, discussed gabapentin, states that she tried this in the past for her shingles and had significant relief with this. States that she would like to start low and slowly titrate up. We will start at 100 mg 3 times a day and increase as needed. Discussed red flag signs and symptoms that would warrant additional work-up in the emergency department including strokelike symptoms, patient and daughter agree and understand. Patient to follow-up following the completion of her MRI. Angelina was seen today for new patient. Diagnoses and all orders for this visit: Right facial numbness - MRI BRAIN WO/W IVCON; Future - MRA BRAIN WO IVCON; Future Atypical facial pain - MRI BRAIN WO/W IVCON; Future - MRA BRAIN WO IVCON; Future Claustrophobia - LORazepam (ATIVAN) 0.5 mg; Take one tablet 30 minutes before your MRI. Other orders - iv contrast (will be provided with radiology test); MRI Brain Inject, intravenously, once for 1 dose.No IV access, insert saline lock prior to beginning of sedation, infusion, injection of imaging exam.Discontinue saline lock post exam. If Pt. has a central line or IVAD, may access for administration according to line specific nursing protocol.Once exam is complete flush line and de-access according to line specific nursing protocol in the MR contrast administration guidelines link - gabapentin (NEURONTIN) 100 mg capsule; Take 1 capsule by mouth three times a day for 90 days. All options for treatment discussed. Preventative: Gabapentin 100 mg 3 times a day Abortive: Aleve Imaging: MRI and MRA of the brain Labs: CRP ESR She should return to see me in 2 months. I spent a total of 50 minutes on the date of the service which included . preparing to see the patient, [id number] patient care, completing clinical documentation, obtaining and/or reviewing separately obtained history, performing a medically appropriate examination, counseling and educating the patient/family/caregiver, and ordering medications, tests, or procedures Yamilka Gonzalez PA-C [facility] Neurology This document has been created with the use of voice recognition technology. It may contain inaccuracies: (e.g. misspellings, inaccurate syntax or word sense) that have escaped review. documented in this encounter [facility] 07-01-2023 Miscellaneous Notes Levaquin sent per EB. Spoke with patient re: same. Will hold /Thursday dose of azithromycin prophylaxis. Leah Ruiz LPN Patient states in the past 4-5 days she is having increased coughing at night when she goes to bed and is coughing up greenish drainage in the mornings. Feels she maybe headed for a problem and asking if needs an antibiotic? If something is called in would like it sent to [facility] in [place]. She would like a call back when addressed. documented in this encounter [facility] 06-11-2023 Note HNO ID: [id number] Author: Felicity Ayala MD Service: ? Author Type: Physician Type: Progress Notes Filed: 06/11/2023 10:44 AM Note Text: . [facility] [place] Note Patient name: Angelina Poole PCP: Mayco Yepez MD, MD CC: bronchiectasis HPI: Angelina Poole 82 year old female never smoker with PMH significant form possible asthma (declined definitive ДМИТРИЙ), bronchiectasis, HTN, h/o MAC > 30 years ago (only received treatment for 6 months due to drug reaction), h/o COVID 10/2021 treated with mAb. Current treatment for bronchiectasis consists of Flovent, acapella/flutter device, Mucinex, and suppressive azithromycin therapy. She had stopped her azithromycin on her own resulting in more frequent flares. Repeat sputum cultures showed one positive culture for MAC (subsequent repeat cultures negative) and positive MSSA. Restarted azithromycin but only using twice a week. She wanted to stop her Flovent. She tried stopping her inhaler but states that she felt better when taking it, less SOB and congestion. Overall, she has been feeling well. Only current problem is cough in am, due to posterior pharyngeal drainage, throat clearing. Using OTC antihistamine. Will occasionally use OTC nasal spray which does seem to help. Currently denies SOB, chest congestion, wheezing, mucus production. Not compliant with acapella/flutter device or Mucinex. She has lost 3 lbs since last visit. She has not been eating well due to recent tooth extraction. PAST MEDICAL HISTORY Diagnosis Date Age-related macular degeneration, dry Bronchiectasis (HCC) 2018 Prior patient of [facility]. 2019 sputum + DONATO complex. 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 Post-nasal drip Zoster iridocyclitis ALLERGIES Allergen Reactions Augmentin [Amoxicil* Diarrhea Sulfa (Sulfonamide * Hives Actonel [Risedronat* Other: See Comments Difficulty swallowing Anoro Ellipta [Umec* Other: See Comments constipation Bactrim [Sulfametho* Hives Cefdinir Diarrhea diarrhea Doxycycline GI Upset Evista [Raloxifene * Myalgia Fosamax [Alendronat* Swelling [place] GI Upset omeprazole (PRILOSEC) 20 mg capsule azithromycin (ZITHROMAX) 250 mg tablet Take 250 mg by mouth two times a week. Thursday/ fluticasone (FLOVENT) 44 mcg/actuation inhaler Inhale 1 Puff as instructed twice daily. Shake well before use. Rinse mouth after use. cetirizine (ZYRTEC) 10 mg tablet Take 10 mg by mouth as needed. benzonatate (TESSALON PERLES) 100 mg capsule Take 1 capsule by mouth three times daily as needed for cough. FOR COUGHING. loratadine 10 mg cap Take by mouth. (Patient not taking: Reported on 06/11/2023) timolol maleate (TIMOPTIC) 0.5 % ophthalmic solution Instill 1 drop in both eyes twice a day Mucus Clearing Device latosha Use daily as needed for secretions. lisinopril (ZESTRIL, PRINIVIL) 5 mg tablet guaiFENesin (MUCINEX) 600 mg 12 hr tablet Take 1 tablet by mouth twice daily. (Patient taking differently: Take 600 mg by mouth twice daily. as needed) vit C/E/Zn/coppr/lutein/zeaxan (PRESERVISION AREDS-2 ORAL) Take 1 capsule by mouth twice daily. cyanocobalamin (VITAMIN B-12) 1,000 mcg tab Take 1,000 mcg by mouth once daily. Cholecalciferol, Vitamin D3, 50 mcg (2,000 unit) cap Take 2,000 Units by mouth once daily. mineral oil/petrolatum,white (REFRESH LACRI-LUBE OPHTHALMIC) Use 0.4 mL in eyes four times daily. Brimonidine-Timolol (COMBIGAN) 0.2-0.5 % 1 Drop twice daily. prednisoLONE acetate (PRED FORTE, ECONOPRED PLUS) 1 % ophthalmic suspension Use 1 Drop in the left eye every other day. valACYclovir (VALTREX) 1 gram Take 500 mg by mouth once daily. 0.5 tab daily Levothyroxine 50 mcg cap Take by mouth. Social History Tobacco Use Smoking status: Never Smokeless tobacco: Never Tobacco comments: Childhood home; both parents smoked. Vaping Use Vaping Use: Never used Substance Use Topics Alcohol use: Never Drug use: Never PMH, Social history, family history and surgical history reviewed and updated in EMR REVIEW OF SYSTEMS: CONSTITUTIONAL: No fevers, chills, nightsweats. 3 lbs weight loss HEENT: Nasal congestion with post nasal drip and throat clearing CARDIOVASCULAR: No chest pain, palpitations, orthopnea, PND, edema. PULM: See HPI GI: No dysphagia/odynophagia, problematic reflux NEURO: No new balance problems, peripheral weakness/paresthesias or numbness of concern. PSY: No concerns regarding depression, anxiety INTEGUMENTARY: No new skin changes or rashes PHYSICAL EXAMINATION: BP 118/74 Pulse 81 Resp 16 Wt 105 lb (47.6kg) SpO2 96% Gene (more content not included)... [facility] 06-11-2023 History of Present illness Narrative Images from the original note were not included. . [facility] [place] Note Patient name: Angelina Poole PCP: Mayco Yepez MD, MD CC: bronchiectasis HPI: Angelina Poole 82 year old female never smoker with PMH significant form possible asthma (declined definitive ДМИТРИЙ), bronchiectasis, HTN, h/o MAC > 30 years ago (only received treatment for 6 months due to drug reaction), h/o COVID 10/2021 treated with mAb. Current treatment for bronchiectasis consists of Flovent, acapella/flutter device, Mucinex, and suppressive azithromycin therapy. She had stopped her azithromycin on her own resulting in more frequent flares. Repeat sputum cultures showed one positive culture for MAC (subsequent repeat cultures negative) and positive MSSA. Restarted azithromycin but only using twice a week. She wanted to stop her Flovent. She tried stopping her inhaler but states that she felt better when taking it, less SOB and congestion. Overall, she has been feeling well. Only current problem is cough in am, due to posterior pharyngeal drainage, throat clearing. Using OTC antihistamine. Will occasionally use OTC nasal spray which does seem to help. Currently denies SOB, chest congestion, wheezing, mucus production. Not compliant with acapella/flutter device or Mucinex. She has lost 3 lbs since last visit. She has not been eating well due to recent tooth extraction. PAST MEDICAL HISTORY Diagnosis Date Age-related macular degeneration, dry Bronchiectasis (HCC) 2019 Prior patient of [facility]. 2019 sputum + DONATO complex. 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 Post-nasal drip Zoster iridocyclitis ALLERGIES Allergen Reactions Augmentin [Amoxicil* Diarrhea Sulfa (Sulfonamide * Hives Actonel [Risedronat* Other: See Comments Difficulty swallowing Anoro Ellipta [Umec* Other: See Comments constipation Bactrim [Sulfametho* Hives Cefdinir Diarrhea diarrhea Doxycycline GI Upset Evista [Raloxifene * Myalgia Fosamax [Alendronat* Swelling [place] GI Upset omeprazole (PRILOSEC) 20 mg capsule azithromycin (ZITHROMAX) 250 mg tablet Take 250 mg by mouth two times a week. Thursday/ fluticasone (FLOVENT) 44 mcg/actuation inhaler Inhale 1 Puff as instructed twice daily. Shake well before use. Rinse mouth after use. cetirizine (ZYRTEC) 10 mg tablet Take 10 mg by mouth as needed. benzonatate (TESSALON PERLES) 100 mg capsule Take 1 capsule by mouth three times daily as needed for cough. FOR COUGHING. loratadine 10 mg cap Take by mouth. (Patient not taking: Reported on 06/11/2023) timolol maleate (TIMOPTIC) 0.5 % ophthalmic solution Instill 1 drop in both eyes twice a day Mucus Clearing Device latosha Use daily as needed for secretions. lisinopril (ZESTRIL, PRINIVIL) 5 mg tablet guaiFENesin (MUCINEX) 600 mg 12 hr tablet Take 1 tablet by mouth twice daily. (Patient taking differently: Take 600 mg by mouth twice daily. as needed) vit C/E/Zn/coppr/lutein/zeaxan (PRESERVISION AREDS-2 ORAL) Take 1 capsule by mouth twice daily. cyanocobalamin (VITAMIN B-12) 1,000 mcg tab Take 1,000 mcg by mouth once daily. Cholecalciferol, Vitamin D3, 50 mcg (2,000 unit) cap Take 2,000 Units by mouth once daily. mineral oil/petrolatum,white (REFRESH LACRI-LUBE OPHTHALMIC) Use 0.4 mL in eyes four times daily. Brimonidine-Timolol (COMBIGAN) 0.2-0.5 % 1 Drop twice daily. prednisoLONE acetate (PRED FORTE, ECONOPRED PLUS) 1 % ophthalmic suspension Use 1 Drop in the left eye every other day. valACYclovir (VALTREX) 1 gram Take 500 mg by mouth once daily. 0.5 tab daily Levothyroxine 50 mcg cap Take by mouth. Social History Tobacco Use Smoking status: Never Smokeless tobacco: Never Tobacco comments: Childhood home; both parents smoked. Vaping Use Vaping Use: Never used Substance Use Topics Alcohol use: Never Drug use: Never PMH, Social history, family history and surgical history reviewed and updated in EMR REVIEW OF SYSTEMS: CONSTITUTIONAL: No fevers, chills, nightsweats. 3 lbs weight loss HEENT: Nasal congestion with post nasal drip and throat clearing CARDIOVASCULAR: No chest pain, palpitations, orthopnea, PND, edema. PULM: See HPI GI: No dysphagia/odynophagia, problematic reflux NEURO: No new balance problems, peripheral weakness/paresthesias or numbness of concern. PSY: No concerns regarding depression, anxiety INTEGUMENTARY: No new skin changes or rashes PHYSICAL EXAMINATION: BP 118/74 Pulse 81 Resp 16 Wt 105 lb (47.6kg) SpO2 96% General Appearance: Thin female, NAD. Skin: Skin color, texture, turgor normal, no suspicious rashes or lesions. Head: Normocephalic, no masses, lesions, tenderness or abnormalities. Eyes: Sclera, conjunctiva normal. Oropharynx: No thrush. Neck: No JVD, no masses, no adenopathy Chest Wall: scoliosis Lungs: Not labored, clear to auscultation and percussion. Heart: RRR, no murmur. Extremities: No edema, no clubbing. Assessment/Plan: Bronchiectasis, uncomplicated -She was instructed to use her acapella/flutter device and restart Mucinex -Continue chronic azithromycin Post nasal drip -Continue OTC nasal spray Weight loss -If persistent weight loss after dental issue resolves, could be due to her bronchiectasis and possible chronic infection (would recommend updated imaging) Felicity Ayala MD [facility] [place] documented in this encounter [facility] 05-12-2023 Miscellaneous Notes Records faxed. Leah Ruiz LPN Received call back from Dental office saying the records are requested for her dentist Colten Forrester and they are being requested due to the patient possibly receiving sedation for a dental procedure. Mary Jo uRbio, RN Unable to provide medical records until further clarification on provider/reason for disclosure is given. Fax number listed appears to be for [facility] in [place]. I left a message on their voicemail to return my call to clarify which provider needs the information. Laeh Ruiz LPN [place] care givers office requesting patient information. Please include problem list,medication list and last office notes Fax to [phone] Thank you Linda Del Castillo MA documented in this encounter [facility] 01-29-2023 Note HNO ID: [id number] Author: Felicity Ayala MD Service: ? Author Type: Physician Type: Progress Notes Filed: 01/29/2023 1:41 PM Note Text: . [facility] [place] [facility] Patient name: Angelina Poole PCP: Mayco Yepez MD CC: follow-up bronchiectasis HPI: Angelina Poole 82 year old female never smoker with PMH significant for possible asthma, bronchiectasis, HTN, history of MAC diagnosed more than 30 years ago treated for 6 months (early termination of therapy due to drug reaction), history of COVID 10/2021 treated with monoclonal antibody. Bronchiectasis treatment with Flovent, mucus clearance techniques, Mucinex and chronic azithromycin therapy. Flovent added for persistent cough following COVID infection and possibility of cough variant asthma but patient declined definitive methacholine challenge testing. Patient has stopped the chronic azithromycin on her own due to concerns of resistance but discontinuation of antibiotic resulted in worsening of her bronchiectasis flares. She has been treated with moxifloxacin and more recently cefadroxil. Sputum culture positive for Staph aureus, non MRSA. Sputum culture from September also positive for MAC but 2 subsequent cultures have been negative. She continues to have chronic cough but is at her baseline for her bronchiectasis. No significant sputum production, hemoptysis, chest pain, shortness of breath, wheezing. No fevers or chills. No night sweats. No significant weight loss. Appetite is good. DATA: Sputum 10/07/22: Moderate Staphylococcus aureus Abnormal [place] PBP2a SA Culture [place] Test PBP2a was not detected by an immunochromatographic assay, so this isolate is methicillin-susceptible. Culture Mycobacterium avium Abnormal By MALDI TOF Mass Spectrometry Sputum 11/13/22: No Acid Fast Bacilli isolated after 42 days Smear Result No acid fast bacilli seen by flurochrome stain Sputum 01/16/23: Moderate Staphylococcus aureus Abnormal [place] PBP2a SA Culture Vilas Test PBP2a was not detected by an immunochromatographic assay, so this isolate is methicillin-susceptible. Culture No Acid Fast Bacilli isolated after 7 days Smear Result No acid fast bacilli seen by flurochrome stain Imaging / Diagnostic Studies: DATE OF EXAM: Dec 25 2022 8:08AM [id number] - XR CHEST 2V FRONTAL/LAT / EXAM DATE/TIME: 12/25/2022 8:08 AM COMPARISON: Chest x-ray on 11/24/2022 RESULT: Lines, tubes, and devices: None. Lungs and pleura: Interval improvement without complete resolution of patchy consolidative opacities overlying the right lower lung. Bronchiectasis is also noted in the right lower lung. There are numerous calcified and noncalcified nodules throughout both lungs, unchanged. The lungs are overexpanded with flattening of the hemidiaphragms, likely related to COPD. No pleural effusions or pneumothorax. Cardiomediastinal silhouette: Stable cardiomediastinal silhouette. Bones and soft tissues: There is persistent right-sided curvature of the spine. IMPRESSION: Interval improvement of patchy consolidative opacities overlying the right lower lung. Other findings as described above. PAST MEDICAL HISTORY Diagnosis Date Age-related macular degeneration, dry Bronchiectasis (HCC) 2019 Prior patient of [facility]. 2019 sputum + DONATO complex. 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 Zoster iridocyclitis ALLERGIES Allergen Reactions Augmentin [Amoxicil* Diarrhea Sulfa (Sulfonamide * Hives Actonel [Risedronat* Other: See Comments Difficulty swallowing Anoro Ellipta [Umec* Other: See Comments constipation Bactrim [Sulfametho* Hives Cefdinir Diarrhea diarrhea Doxycycline GI Upset Evista [Raloxifene * Myalgia Fosamax [Alendronat* Swelling [place] GI Upset doxycycline hyclate (VIBRAMYCIN) 100 mg capsule Take 1 capsule by mouth twice daily for 14 days. (Patient not taking: Reported on 01/29/2023) fluticasone (FLOVENT) 44 mcg/actuation inhaler Inhale 1 Puff as instructed twice daily. Shake well before use. Rinse mouth after use. benzonatate (TESSALON PERLES) 100 mg capsule Take 1 capsule by mouth three times daily as needed for cough. FOR COUGHING. loratadine 10 mg cap Take by mouth. timolol maleate (TIMOPTIC) 0.5 % ophthalmic solution Instill 1 drop in both eyes twice a day Mucus Clearing Device latosha Use daily as needed for secretions. lisinopril (ZESTRIL, PRINIVIL) 5 mg tablet guaiFENesin (MUCINEX) 600 mg 12 hr tablet Take 1 tablet by mouth twice daily. (Patient taking differently: Take 600 mg by mouth twice daily. as needed) vit C/E/Zn/coppr/l (more content not included)... [facility] 01-29-2023 History of Present illness Narrative Images from the original note were not included. . [facility] [place] Note Patient name: Angelina Poole PCP: Mayco Yepez MD CC: follow-up bronchiectasis HPI: Angelina Poole 82 year old female never smoker with PMH significant for possible asthma, bronchiectasis, HTN, history of MAC diagnosed more than 30 years ago treated for 6 months (early termination of therapy due to drug reaction), history of COVID 10/2021 treated with monoclonal antibody. Bronchiectasis treatment with Flovent, mucus clearance techniques, Mucinex and chronic azithromycin therapy. Flovent added for persistent cough following COVID infection and possibility of cough variant asthma but patient declined definitive methacholine challenge testing. Patient has stopped the chronic azithromycin on her own due to concerns of resistance but discontinuation of antibiotic resulted in worsening of her bronchiectasis flares. She has been treated with moxifloxacin and more recently cefadroxil. Sputum culture positive for Staph aureus, non MRSA. Sputum culture from September also positive for MAC but 2 subsequent cultures have been negative. She continues to have chronic cough but is at her baseline for her bronchiectasis. No significant sputum production, hemoptysis, chest pain, shortness of breath, wheezing. No fevers or chills. No night sweats. No significant weight loss. Appetite is good. DATA: Sputum 10/07/22: Moderate Staphylococcus aureus Abnormal [place] PBP2a SA Culture [place]as Test PBP2a was not detected by an immunochromatographic assay, so this isolate is methicillin-susceptible. Culture Mycobacterium avium Abnormal By MALDI TOF Mass Spectrometry Sputum 11/13/22: No Acid Fast Bacilli isolated after 42 days Smear Result No acid fast bacilli seen by flurochrome stain Sputum 01/16/23: Moderate Staphylococcus aureus Abnormal [place] PBP2a SA Culture [place] Test PBP2a was not detected by an immunochromatographic assay, so this isolate is methicillin-susceptible. Culture No Acid Fast Bacilli isolated after 7 days Smear Result No acid fast bacilli seen by flurochrome stain Imaging / Diagnostic Studies: DATE OF EXAM: Dec 25 2022 8:08AM [id number] - XR CHEST 2V FRONTAL/LAT / EXAM DATE/TIME: 12/25/2022 8:08 AM COMPARISON: Chest x-ray on 11/24/2022 RESULT: Lines, tubes, and devices: None. Lungs and pleura: Interval improvement without complete resolution of patchy consolidative opacities overlying the right lower lung. Bronchiectasis is also noted in the right lower lung. There are numerous calcified and noncalcified nodules throughout both lungs, unchanged. The lungs are overexpanded with flattening of the hemidiaphragms, likely related to COPD. No pleural effusions or pneumothorax. Cardiomediastinal silhouette: Stable cardiomediastinal silhouette. Bones and soft tissues: There is persistent right-sided curvature of the spine. IMPRESSION: Interval improvement of patchy consolidative opacities overlying the right lower lung. Other findings as described above. PAST MEDICAL HISTORY Diagnosis Date Age-related macular degeneration, dry Bronchiectasis (HCC) 2019 Prior patient of [facility]. 2019 sputum + DONATO complex. 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 Zoster iridocyclitis ALLERGIES Allergen Reactions Augmentin [Amoxicil* Diarrhea Sulfa (Sulfonamide * Hives Actonel [Risedronat* Other: See Comments Difficulty swallowing Anoro Ellipta [Umec* Other: See Comments constipation Bactrim [Sulfametho* Hives Cefdinir Diarrhea diarrhea Doxycycline GI Upset Evista [Raloxifene * Myalgia Fosamax [Alendronat* Swelling [place] GI Upset doxycycline hyclate (VIBRAMYCIN) 100 mg capsule Take 1 capsule by mouth twice daily for 14 days. (Patient not taking: Reported on 01/29/2023) fluticasone (FLOVENT) 44 mcg/actuation inhaler Inhale 1 Puff as instructed twice daily. Shake well before use. Rinse mouth after use. benzonatate (TESSALON PERLES) 100 mg capsule Take 1 capsule by mouth three times daily as needed for cough. FOR COUGHING. loratadine 10 mg cap Take by mouth. timolol maleate (TIMOPTIC) 0.5 % ophthalmic solution Instill 1 drop in both eyes twice a day Mucus Clearing Device latosha Use daily as needed for secretions. lisinopril (ZESTRIL, PRINIVIL) 5 mg tablet guaiFENesin (MUCINEX) 600 mg 12 hr tablet Take 1 tablet by mouth twice daily. (Patient taking differently: Take 600 mg by mouth twice daily. as needed) vit C/E/Zn/coppr/lutein/zeaxan (PRESERVISION AREDS-2 ORAL) Take 1 capsule by mouth twice daily. cyanocobalamin (VITAMIN B-12) 1,000 mcg tab Take 1,000 mcg by mouth once daily. Cholecalciferol, Vitamin D3, 50 mcg (2,000 unit) cap Take 2,000 Units by mouth once daily. mineral oil/petrolatum,white (REFRESH LACRI-LUBE OPHTHALMIC) Use 0.4 mL in eyes four times daily. Brimonidine-Timolol (COMBIGAN) 0.2-0.5 % 1 Drop twice daily. prednisoLONE acetate (PRED FORTE, ECONOPRED PLUS) 1 % ophthalmic suspension Use 1 Drop in the left eye every other day. valACYclovir (VALTREX) 1 gram Take 500 mg by mouth once daily. 0.5 tab daily cetirizine (ZYRTEC) 10 mg tablet Take 10 mg by mouth as needed. Levothyroxine 50 mcg cap Take by mouth. Social History Tobacco Use Smoking status: Never Smokeless tobacco: Never Tobacco comments: Childhood home; both parents smoked. Vaping Use Vaping Use: Never used Substance Use Topics Alcohol use: Never Drug use: Never FAMILY HISTORY Problem Relation Age of Onset COPD Mother Smoker Cancer Father Lung. Smoker Ischemic Heart Disease Father Cancer Sister Lung. Smoker Diabetes Brother Diabetes Brother Asthma Brother PAST SURGICAL HISTORY Procedure Laterality Date COLONOSCOPY FLX DX W/COLLJ SPEC WHEN PFRMD 08/10/2006 Colonoscopy REMV CATARACT EXTRACAP,INSERT LENS Left 2020 PMH, Social history, family history and surgical history reviewed and updated in EMR REVIEW OF SYSTEMS: CONSTITUTIONAL: No fevers, chills, nightsweats, unintended weight loss, fatigue HEENT: Some nasal congestion/sinus symptoms EYES: Visual changes due to macular degeneration and previous zoster infection CARDIOVASCULAR: No chest pain, dyspnea, palpitations, orthopnea, PND, edema. PULM: See HPI GI: No dysphagia/odynophagia, problematic reflux PSY: No concerns regarding depression, anxiety INTEGUMENTARY: No new skin changes or rashes PHYSICAL EXAMINATION: BP 122/70 Pulse 82 Resp 18 Wt 108 lb (49.0kg) SpO2 97% General Appearance: Thin elderly female, NAD Skin: Skin color, texture, turgor normal, no suspicious rashes or lesions. Head: Normocephalic, no masses, lesions, tenderness or abnormalities. Eyes: Sclera, conjunctiva normal Oropharynx: Adequate dentition, no oral lesions or thrush Neck: No jugular venous distention, no masses, no adenopathy Chest wall: Kyphosis and scoliosis Lungs: Normal to percussion, not labored, no wheezes or crackles Heart: Regular rate and rhythm, no murmurs gallops Extremities: No edema clubbing Assessment/Plan: 1. Bronchiectasis, without acute exacerbation -One positive sputum culture for MAC, subsequent sputum cultures negative. Patient has had recurrent flares of her bronchiectasis since stopping her azithromycin. -Since AFB cultures have been negative, we will restart her azithromycin -Continue mucus clearance techniques 2. Abnormal sputum -Recurrent methicillin sensitive Staph aureus 3. Chronic cough -Chronic cough due to postnasal drip and her bronchiectasis. Asthma has not been confirmed. Has had small airways obstruction on pulmonary function test which can be seen with her bronchiectasis, exhaled nitric oxide level has been normal. Patient would like to discontinue her Flovent inhaler. Instructed her to stop her Flovent inhaler after she has restarted her chronic azithromycin therapy. If she has recrudescence of worsening of her cough off Flovent, she will restart her inhaled therapy. Continues to decline definitive methacholine challenge testing Felicity Ayala MD [facility] [place] documented in this encounter [facility] 01-21-2023 Miscellaneous Notes Discussed with patient. She has planned follow up next . Leah Ruiz LPN Cefadroxil ordered 01/13, 10 day course. She started this medication on the and has 3 days left. Symptoms are about 90% improved by her report with less coughing and no mucus production. Spoke with patient. Let her know that I would check on use of cephalosporin drug class, as it is not listed on susceptibility report. Please advise. Leah Ruiz LPN Patient returned call and given results and provider's instructions. Patient states she currently out of town and will return on the . She wants to wait until she is back home. Feels she has Doxycycline already at home. Patient states it had given her a GI upset and she always takes all of her medication with food . Patient is asking why she can't finish taking what she is already on? Tried to explain to patient the medication she was on was to treat the MRSA and not Staph. She would like to speak directly with Dr. Ayala's nurse. Left message for patient to call. Leah Ruiz LPN ----- Message from Felicity Ayala MD sent at 01/20/2023 4:48 PM EDT ----- Can you call patient and let her know that she has Staph, not MRSA in sputum that would best be treated by doxycycline. Sent in prescription. Listed as an allergy with GI upset. If she can tolerate it with food this would be the best course of action. documented in this encounter [facility] 12-25-2022 Note HNO ID: [id number] Author: RT Kirti(R) Service: Radiology Author Type: Technologist Type: Progress Notes Filed: 12/25/2022 8:09 AM Note Text: Radiology Service Progress Note PATIENT NAME: Angelina Poole DATE OF SERVICE: December 25, 2022 TIME: 8:01 AM PATIENT IDENTITY VERIFICATION COMPLETED USING TWO (2) IDENTIFIERS: Name and Date of confirmed by patient verbally. FALL SCREENING: Has the patient had 2 falls in the last year or 1 fall with injury or currently using an Ambulatory Assistive Device (Walker, Cane, Wheelchair, Crutches, etc.)? No PATIENT GENDER DATA: Female. status: : No status: NO. PATIENT RELEVANT IMPLANT DATA REVIEWED: Yes RADIOLOGY DEPARTMENT: General X-ray: Exam(s) Completed: Chest X-Ray PERIPHERAL IV DATA: Not applicable SIGNED BY: RT Kirti(R) December 25, 2022 8:01 AM [facility] 12-25-2022 History of Present illness Narrative Radiology Service Progress Note PATIENT NAME: Angelina Poole DATE OF SERVICE: December 25, 2022 TIME: 8:01 AM PATIENT IDENTITY VERIFICATION COMPLETED USING TWO (2) IDENTIFIERS: Name and Date of confirmed by patient verbally. FALL SCREENING: Has the patient had 2 falls in the last year or 1 fall with injury or currently using an Ambulatory Assistive Device (Walker, Cane, Wheelchair, Crutches, etc.)? No PATIENT GENDER DATA: Female. status: : No status: NO. PATIENT RELEVANT IMPLANT DATA REVIEWED: Yes RADIOLOGY DEPARTMENT: General X-ray: Exam(s) Completed: Chest X-Ray PERIPHERAL IV DATA: Not applicable SIGNED BY: RT Kirti(R) December 25, 2022 8:01 AM documented in this encounter [facility] 12-25-2022 Miscellaneous Notes Please call Angelina to let her know that her CXR is improved. Have her continue to hold her Azithromycin. Her preliminary AFB is negative for her second culture and we are sill waiting for her final read. Shayy documented in this encounter [facility] 11-24-2022 Note HNO ID: [id number] Author: RT Nina(R) Service: ? Author Type: Casino Porter Type: Progress Notes Filed: 11/24/2022 10:51 AM Note Text: Radiology Service Progress Note PATIENT NAME: Angelina Poole DATE OF SERVICE: November 24, 2022 TIME: 10:37 AM PATIENT IDENTITY VERIFICATION COMPLETED USING TWO (2) IDENTIFIERS: Name and Date of confirmed by patient verbally. FALL SCREENING: Has the patient had 2 falls in the last year or 1 fall with injury or currently using an Ambulatory Assistive Device (Walker, Cane, Wheelchair, Crutches, etc.)? No PATIENT GENDER DATA: Female. status: : No status: NO. PATIENT RELEVANT IMPLANT DATA REVIEWED: Yes RADIOLOGY DEPARTMENT: General X-ray: Exam(s) Completed: Chest X-Ray PERIPHERAL IV DATA: Not applicable SIGNED BY: RT Nina(R) November 24, 2022 10:37 AM [facility] 11-24-2022 Note HNO ID: [id number] Author: Linda Rodriguez PA-C Service: ? 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 Current therapy consists of Flovent and mucus clearance with Mucinex and Acapella flutter device. Recent sputum cultures positive for MAC. Patient instructed to remain off Azithromycin and obtain a second sputum culture. Patient called into the office on 11/20 secondary to sinus infection for the past 10 days. PCP prescribed Azithromycin and patient wanted to check with pulm prior to taking Azithromycin. Covid and flu test were negative. I changed her to Cefdinir for 7 days secondary to resistance with MAC. Today, patient presents today for acute visit for cough. She stopped taking Cefdinir secondary to diarrhea. Claims to be consistently compliant with prescribed maintenance Rx Flovent and as needed Albuterol. Patient previously on preventative Azithromycin twice weekly. However, it was discontinued due to positive sputum for MAC. Second sputum culture is pending. Daily cough. Expels green sputum. No hemoptysis. No wheezing. No dyspnea at rest. Exertional dyspnea with minimal effort. Becomes short of breath with coughing, talking, walking from kitchen to chair. No fevers, chills, or night sweats. Extreme fatigue and tiredness. No appetite. PAST MEDICAL HISTORY Diagnosis Date Age-related macular degeneration, dry Bronchiectasis (HCC) 2019 Prior patient of [facility]. 2019 sputum + DONATO complex. 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 fluticasone (FLOVENT) 44 mcg/actuation inhaler Inhale 1 Puff as instructed twice daily. Shake well before use. Rinse mouth after use. loratadine 10 mg cap Take by mouth. timolol maleate (TIMOPTIC) 0.5 % ophthalmic solution Instill 1 drop in both eyes twice a day Mucus Clearing Device latosha Use daily as needed for secretions. lisinopril (ZESTRIL, PRINIVIL) 5 mg tablet guaiFENesin (MUCINEX) 600 mg 12 hr tablet Take 1 tablet by mouth twice daily. (Patient taking differently: Take 600 mg by mouth twice daily. as needed) vit C/E/Zn/coppr/lutein/zeaxan (PRESERVISION AREDS-2 ORAL) Take 1 capsule by mouth twice daily. cyanocobalamin (VITAMIN B-12) 1,000 mcg tab Take 1,000 mcg by mouth once daily. Cholecalciferol, Vitamin D3, 50 mcg (2,000 unit) cap Take 2,000 Units by mouth once daily. mineral oil/petrolatum,white (REFRESH LACRI-LUBE OPHTHALMIC) Use 0.4 mL in eyes four times daily. Brimonidine-Timolol (COMBIGAN) 0.2-0.5 % 1 Drop twice daily. (Patient not taking: No sig reported) prednisoLONE acetate (PRED FORTE, ECONOPRED PLUS) 1 % ophthalmic suspension Use 1 Drop in the left eye every other day. valACYclovir (VALTREX) 1 gram Take 500 mg by mouth once daily. 0.5 tab daily benzonatate (TESSALON PERLE) 100 mg capsule Take 100 mg by mouth three times daily as needed. cetirizine (ZYRTEC) 10 mg tablet Take 10 mg by mouth as needed. (Patient not taking: No sig reported) Levothyroxine 50 mcg cap Take by mouth. Social History Tobacco Use Smoking status: Never Smokeless tobacco: Never Tobacco comments: Childhood home; both parents smoked. Vaping Use Vaping Use: Never used Substance Use Topics Alcohol use: Never Drug use: Never Family History Problem Relation Age of Onset COPD Mother Smoker Cancer Father Lung. Smoker Ischemic Heart Disease Father Cancer Sister Lung. Smoker Diabetes Brother Diabetes Brother Asthma Brother PAST SURGICAL HISTORY Procedure Laterality Date COLONOSCOPY FLX DX W/COLLJ SPEC WHEN PFRMD 08/10/2006 Colonoscopy REMV CATARACT EXTRACAP,INSERT LENS Left 2020 I reviewed the past medical history, family history, social history and surgical history with changes noted above and updated in EMR. IMMUNIZ (more content not included)... [facility] 11-24-2022 Miscellaneous Notes FYI- I called Angelina to let her know her CXR results. She is feeling improved with prescribed antibiotics. I would like her to have a CXR in 1 month. She is agreeable. 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 Current therapy consists of Flovent and mucus clearance with Mucinex and Acapella flutter device. Recent sputum cultures positive for MAC. Patient instructed to remain off Azithromycin and obtain a second sputum culture. Patient called into the office on 11/20 secondary to sinus infection for the past 10 days. PCP prescribed Azithromycin and patient wanted to check with pulm prior to taking Azithromycin. Covid and flu test were negative. I changed her to Cefdinir for 7 days secondary to resistance with MAC. Today, patient presents today for acute visit for cough. She stopped taking Cefdinir secondary to diarrhea. Claims to be consistently compliant with prescribed maintenance Rx Flovent and as needed Albuterol. Patient previously on preventative Azithromycin twice weekly. However, it was discontinued due to positive sputum for MAC. Second sputum culture is pending. Daily cough. Expels green sputum. No hemoptysis. No wheezing. No dyspnea at rest. Exertional dyspnea with minimal effort. Becomes short of breath with coughing, talking, walking from kitchen to chair. No fevers, chills, or night sweats. Extreme fatigue and tiredness. No appetite. PAST MEDICAL HISTORY Diagnosis Date Age-related macular degeneration, dry Bronchiectasis (HCC) 2019 Prior patient of [facility] [place]. 2019 sputum + DONATO complex. 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 fluticasone (FLOVENT) 44 mcg/actuation inhaler Inhale 1 Puff as instructed twice daily. Shake well before use. Rinse mouth after use. loratadine 10 mg cap Take by mouth. timolol maleate (TIMOPTIC) 0.5 % ophthalmic solution Instill 1 drop in both eyes twice a day Mucus Clearing Device latosha Use daily as needed for secretions. lisinopril (ZESTRIL, PRINIVIL) 5 mg tablet guaiFENesin (MUCINEX) 600 mg 12 hr tablet Take 1 tablet by mouth twice daily. (Patient taking differently: Take 600 mg by mouth twice daily. as needed) vit C/E/Zn/coppr/lutein/zeaxan (PRESERVISION AREDS-2 ORAL) Take 1 capsule by mouth twice daily. cyanocobalamin (VITAMIN B-12) 1,000 mcg tab Take 1,000 mcg by mouth once daily. Cholecalciferol, Vitamin D3, 50 mcg (2,000 unit) cap Take 2,000 Units by mouth once daily. mineral oil/petrolatum,white (REFRESH LACRI-LUBE OPHTHALMIC) Use 0.4 mL in eyes four times daily. Brimonidine-Timolol (COMBIGAN) 0.2-0.5 % 1 Drop twice daily. (Patient not taking: No sig reported) prednisoLONE acetate (PRED FORTE, ECONOPRED PLUS) 1 % ophthalmic suspension Use 1 Drop in the left eye every other day. valACYclovir (VALTREX) 1 gram Take 500 mg by mouth once daily. 0.5 tab daily benzonatate (TESSALON PERLE) 100 mg capsule Take 100 mg by mouth three times daily as needed. cetirizine (ZYRTEC) 10 mg tablet Take 10 mg by mouth as needed. (Patient not taking: No sig reported) Levothyroxine 50 mcg cap Take by mouth. Social History Tobacco Use Smoking status: Never Smokeless tobacco: Never Tobacco comments: Childhood home; both parents smoked. Vaping Use Vaping Use: Never used Substance Use Topics Alcohol use: Never Drug use: Never Family History Problem Relation Age of Onset COPD Mother Smoker Cancer Father Lung. Smoker Ischemic Heart Disease Father Cancer Sister Lung. Smoker Diabetes Brother Diabetes Brother Asthma Brother PAST SURGICAL HISTORY Procedure Laterality Date COLONOSCOPY FLX DX W/COLLJ SPEC WHEN PFRMD 08/10/2006 Colonoscopy REMV CATARACT EXTRACAP,INSERT LENS Left 2020 I reviewed the past medical history, family history, social history and surgical history with changes noted above and updated in EMR. IMMUNIZATIONS Prevnar - 05/13/2014 Pneumovax 05/13/2009 Influenza - xx COVID- - 11/23/2020 ROS: General: Generally feels fatigue. Appetite poor. No fevers, chills, diarrhea. Eyes, Ears, nose, throat: No post nasal drip, rhinorrhea. No purulent nasal discharge, epistaxis. No hoarseness. Vision stable. Cardiac: No angina, edema, orthopnea. Resp: See HPI. GI: No heartburn, dysphagia. Musculoskeletal: No pain. Neuro: No headache, focal weakness, tremor. Skin: No rash. Otherwise negative. PHYSICAL EXAMINATION: BP 138/80 Pulse 93 Temp 37.1 C (98.8 F) Resp 15 Wt 48.1 kg (106 lb) SpO2 96% BMI 18.78 kg/m Gen: No acute distress. Cooperative with examination. HEENT: Normocephalic. Sclera, conjunctiva clear. Oral hygeine and dentition good. No thrush. Resp: No stridor, accessory respiratory muscle use, supra-sternal or intercostal retractions. No wheezes, crackles. CV: Regular rythm. Heart tones normal. Radial pulses normal. Abd: Non distended. MSK: No kyphoscoliosis. Ext: Warm and well perfused. No clubbing, cyanosis, edema. Skin: No rash, ecchymoses. Neuro: Mental status normal. Affect normal. No tremor. DATA: PFT, 01/09/2022 IMPRESSION: The flow volume demonstrates an obstructive pattern. Spirometry indicates mild obstruction. Electronically Signed On 01-09-2022 17:09:12 EDT by Nilo Covarrubias Exhaled nitric oxide (Janet), 01/09/2022: 19 (normal < 20). CXR, 11/24/2022 RESULT: Lines, tubes, and devices: None. Lungs and pleura: Right middle lobe consolidation is seen. Small right pleural effusion. Underlying chronic changes are stable. Evidence of remote granulomatous disease and probable bronchiectasis Cardiomediastinal silhouette: Stable cardiomediastinal silhouette. Bones and soft tissues: Degenerative change and scoliosis CXR, 08/01/2021 IMPRESSION: Bilateral interstitial prominence and coarse calcifications are stable. Bronchiectasis. No evidence of superimposed acute process Labs Component Latest Ref Rng & Units 10/07/2022 Culture Mycobacterium avium (A) Smear Result No acid fast bacilli seen by flurochrome stain ASSESSMENT/PLAN: 1. Bronchiectasis with acute exacerbation (HCC) - ICD9: 494.1, ICD10: J47.1 (primary diagnosis) See #2. Continue Mucinex and Acapella flutter device. Continue to hold Azithromycin at this time. 2. Acute cough - ICD9: 786.2, ICD10: R05.1 CXR today reveals possible pneumonia. Awaiting radiology final read. Start Cefadroxil as directed. Will obtain CXR in 4 weeks to check for resolution. - XR CHEST 2V FRONTAL/LAT - CEFADROXIL 500 MG CAPSULE - BENZONATATE 100 MG CAPSULE 3. History of MAC infection - ICD9: V12.09, ICD10: Z86.19 First sputum positive for MAC. Awaiting second sample results. Hold Azithromycin. 4. Mild persistent asthma, unspecified whether complicated - ICD9: 493.90, ICD10: J45.30 Currently controlled on Flovent. Linda Rodriguez PA-C documented in this encounter [facility] 11-11-2022 Miscellaneous Notes Noted, thank you! Pt. called in stating she was instructed to provide a sputum sample per Dr. Ayala. Pt. has a sample cup at home, however the cup is outdated as of June,. This nurse advised pt to stop by [facility] and obtain a new sample cup. Pt will be in town tomorrow and can pick up attendant at that time. Natalie Leslie RN documented in this encounter [facility] 11-04-2022 Miscellaneous Notes Patient has been identified by name and date of : Yes Requested Prescriptions Pending Prescriptions Disp Refills fluticasone (FLOVENT) 44 mcg/actuation inhaler 1 Each 5 Sig: Inhale 1 Puff as instructed twice daily. Shake well before use. Rinse mouth after use. RX INSTRUCTIONS: Patient aware RX will be sent to pharmacy. No need to notify patient. Pt states she is doing better and has not had a productive cough to submit second sputum specimen. FYI. Tamara Ferguson documented in this encounter [facility] 10-30-2022 Miscellaneous Notes AFB is positive. Likely NTM. Need a second culture. Instructed to remain off azithromycin documented in this encounter [facility] 10-16-2022 Miscellaneous Notes Spoke with patient. Sindhu sent to [facility] last evening. She will have spouse pick up attendant RX this morning. Aware AFB final results are still pending. Leah Ruiz LPN Patient called. Verified name and date of . Patient concerned that she has not heard from Dr. Ayala and wanted to make sure that the message was provided to pulmonary staff. Assured patient it has been. Melissa Noriega LPN Patient called stating she has been experiencing a productive cough and sinus drainage for the last 2 weeks. Pt stated symptoms occurred after azithromycin therapy was completed. Pt brought sputum sample in to lab and was wanting results. Please review and advise. Thank you. Vandana Ayala LPN documented in this encounter [facility] 09-23-2022 History of Present illness Narrative Images from the original note were not included. . [facility] [place] Note Patient name: Angelina Poole PCP: Mayco Hartman MD CC: Bronchiectasis HPI: Angelina Poole 82 year old female never smoker with PMH significant for HTN, asthma, bronchiectasis, h/o MAC diagnosed by bronchoscopy more that 30 years ago and treated for only 6 months due to drug reaction, h/o COVID 10/2021 treated with monoclonal Ab, former patient of Dr. Covarrubias. Current therapy with Flovent and mucus clearance with Mucinex alone. Intermittently on chronic azithromycin therapy. Patient had stopped the azithromycin on her own due to concerns of resistance but restarted at twice a week dosing since she had more chest congestion off of the antibiotic. Recent flare of her bronchiectasis was treated with moxifloxacin. Currently she states she feels well without any sputum production, chest congestion, wheezing, chest pain or shortness of breath. Asthma component treated with low-dose Flovent inhaler with as needed albuterol. She is compliant with her prescribed inhaled therapy. No need for her albuterol. Sputum positive for MAC and Staph in 2019. Most recent sputum positive for Staph but unable to expectorate phlegm for AFB culture. She is thin but is trying to maintain her weight with improved nutritional supplementation. She denies any fevers, night sweats. She does not have an Acapella device for mucus clearance. DATA: SERVICE DATE: 01/09/2022 SERVICE TIME: 10:06 AM Oral Exhaled Nitric Oxide measurement: 19.0 (ppb PFT 12/2021: Review of spirometry shows small airways obstruction Labs: Component Ref Range & Units 3 yr ago IgE <114 kU/L 67.1 Component Ref Range & Units 3 yr ago IgG 717 - 1,411 mg/dL 1,600 High IgA 78 - 391 mg/dL 414 High IgM 53 - 334 mg/dL 73 Imaging / Diagnostic Studies: DATE OF EXAM: Aug 01 2021 9:52AM [id number] [id number] - XR CHEST 2V FRONTAL/LAT / PROCEDURE REASON: Bronchiectasis without acute exacerbation (HCC) CLINICAL HISTORY: Bronchiectasis without acute exacerbation (HCC) MQ: [id number] EXAM DATE/TIME: 08/01/2021 9:52 AM COMPARISON: 07/20/2019 RESULT: Lines, tubes, and devices: None. Lungs and pleura: Bilateral interstitial prominence and coarse calcifications appear stable. Sequela of bronchiectasis noted. No new significant collapse or consolidation. No pleural fluid or pneumothorax Cardiomediastinal silhouette: Stable cardiomediastinal silhouette. Bones and soft tissues: Stable scoliosis and degenerative change IMPRESSION: Bilateral interstitial prominence and coarse calcifications are stable. Bronchiectasis. No evidence of superimposed acute process I personally reviewed the images which shows bronchiectasis without acute infiltrate PAST MEDICAL HISTORY Diagnosis Date Age-related macular degeneration, dry Bronchiectasis (HCC) 2019 Prior patient of [facility]. 2019 sputum + DONATO complex. 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 (Patient taking differently: Take 250 mg by mouth once daily. Taking twice a week 09/23/22 and ) fluticasone (FLOVENT) 44 mcg/actuation inhaler Inhale 1 Puff as instructed twice daily. Shake well before use. Rinse mouth after use. loratadine 10 mg cap Take by mouth. timolol maleate (TIMOPTIC) 0.5 % ophthalmic solution Instill 1 drop in both eyes twice a day Mucus Clearing Device latosha Use daily as needed for secretions. lisinopril (ZESTRIL, PRINIVIL) 5 mg tablet guaiFENesin (MUCINEX) 600 mg 12 hr tablet Take 1 tablet by mouth twice daily. (Patient taking differently: Take 600 mg by mouth twice daily. as needed) azithromycin (ZITHROMAX) 250 mg tablet TAKE 1 TABLET BY MOUTH THREE TIMES A WEEK. (Patient not taking: No sig reported) vit C/E/Zn/coppr/lutein/zeaxan (PRESERVISION AREDS-2 ORAL) Take 1 capsule by mouth twice daily. cyanocobalamin (VITAMIN B-12) 1,000 mcg tab Take 1,000 mcg by mouth once daily. Cholecalciferol, Vitamin D3, 50 mcg (2,000 unit) cap Take 2,000 Units by mouth once daily. mineral oil/petrolatum,white (REFRESH LACRI-LUBE OPHTHALMIC) Use 0.4 mL in eyes four times daily. Brimonidine-Timolol (COMBIGAN) 0.2-0.5 % 1 Drop twice daily. (Patient not taking: No sig reported) prednisoLONE acetate (PRED FORTE, ECONOPRED PLUS) 1 % ophthalmic suspension Use 1 Drop in the left eye every other day. valACYclovir (VALTREX) 1 gram Take 500 mg by mouth once daily. 0.5 tab daily benzonatate (TESSALON PERLE) 100 mg capsule Take 100 mg by mouth three times daily as needed. cetirizine (ZYRTEC) 10 mg tablet Take 10 mg by mouth as needed. (Patient not taking: No sig reported) Levothyroxine 50 mcg cap Take by mouth. Social History Tobacco Use Smoking status: Never Smokeless tobacco: Never Tobacco comments: Childhood home; both parents smoked. 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 Smoker Ischemic Heart Disease Father Cancer Sister Lung. Smoker Diabetes Brother Diabetes Brother Asthma Brother PAST SURGICAL HISTORY Procedure Laterality Date COLONOSCOPY FLX DX W/COLLJ SPEC WHEN PFRMD 08/10/2006 Colonoscopy REMV CATARACT EXTRACAP,INSERT LENS Left 2020 PMH, Social history, family history and surgical history reviewed and updated. REVIEW OF SYSTEMS: CONSTITUTIONAL: No fevers, chills, nightsweats, unintended weight loss, fatigue HEENT: Denies nasal congestion/sinus symptoms, allergy problems. CARDIOVASCULAR: No chest pain, dyspnea, palpitations, orthopnea, PND, edema. PULM: See HPI GI: No dysphagia/odynophagia, problematic reflux NEURO: No new balance problems, peripheral weakness/paresthesias or numbness of concern. MUSC-SKEL: No joint pain, swelling, or erythema. INTEGUMENTARY: No new skin changes or rashes PHYSICAL EXAMINATION: Pulse 58 Resp 16 Wt 105 lb (47.6kg) SpO2 100% General Appearance: Thin elderly female, NAD Skin: Skin color, texture, turgor normal, no suspicious rashes or lesions. Head: Normocephalic, no masses, lesions, tenderness or abnormalities. Eyes: Sclera, conjunctiva normal Oropharynx: No oral lesions, thrush or erythema Neck: No JVD, no masses, no thyromegaly Chest wall: Scoliosis Lungs: Not labored, normal percussion, crackles right base, no wheezes Heart: Regular rate and rhythm, no murmurs gallops Extremities: No edema or clubbing Lymph Nodes: No cervical lymphadenopathy and No supraclavicular lymphadenopathy. Assessment/Plan: 1. Bronchiectasis without acute exacerbation -Patient received a Acapella flutter device today and instructed on usage -Continue Mucinex as needed -Need to exclude colonization with MAC -Hold azithromycin 2. Mild asthma, uncomplicated -Currently controlled -Continue Flovent with as needed albuterol 3. History of MAC -See #1 -Need to exclude colonization with MAC as suppressive azithromycin therapy increases risk of resistance -Hold azithromycin -Sputum for AFB. Patient received a sputum cup and culture order. Felicity Ayala MD [facility] [place] documented in this encounter [facility] 09-08-2022 Miscellaneous Notes Confirmed RX with Lucien at [facility]. Patient notified of instructions and verbalizes understanding. Upcoming appt with EB on 09/23. Leah Ruiz LPN Will send antibiotics to preferred pharmacy. Patient should stop Azithromycin while on antibiotics. If she is able to produce a sputum sample prior to starting antibiotics that would be ideal. Shayy Spoke with patient. Sx began on Thursday with cough that is occasionally productive. Decreased appetite and energy. Chills/sweats over the weekend but denies elevated temperature. She reports she frequently has chills with exacerbations. She did take a home covid test yesterday that was negative. No sick contacts. [facility]. Will call to update patient. Leah Ruiz LPN Patient called stating she has not been feeling well for 3 days and is asking for an antibiotic. Please call patient and advise. documented in this encounter [facility] 08-08-2022 History of Present illness Narrative Last FU 06/2020 (Sees Dr. Lucero in [place] [id number], last in 06/2022) Self referred No new flares since last visit Had cataract surgery left eye in approximately 2020 HZV iritis, left eye Hx of HZV keratitis, left eye Course: - referred by Dr. Lucero due to increased IOP and management of HZV iritis/keratitis - patient with shingles 05/2019 with rash to left forehead, subsequent photosensitivity, pain in left eye starting 06/2019 - patient placed on valacyclovir, PF (up to 6x a day), brimonidine, dorzolamide, rhopressa left eye - Decreased to only timolol the past year due to drop intolerance Meds: - Valacyclovir 500mg every day - Timolol twice a day both eyes - Predforte q2days left eye - PFAT 3-4X day - Preservision BID Impression/PLAN: - appears to have improved after starting valtrex 500mg BID - would recommend long-term prophylactic dosing (e.g. 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 - Continue complete blood count (CBC) and complete metabolic panel (CMP) checks while on valtrex - her most recent CBC and complete metabolic panel (CMP) were completed on 06/11/22: Creat 0.7 (n), GFR 85, complete blood count (CBC) normal (platelets 270) Twig BVO OS - New macular heme inferiorly on exam today - Non CI Macular edema - Started HTN medications this year - Stressed the importance of controlling HTN and Chol - FU 1 month with OCT Last 14 BP Last 14 Encounter BP Readings: Date: BP: 06/18/2022 130/82 01/09/2022 142/80 11/21/2021 168/78 08/01/2021 169/78 05/13/2021 176/81 07/25/2019 140/82 05/30/2019 104/60 05/13/2019 120/62 01/21/2019 130/80 06/26/2006 120/70 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 - no signs of exudation - never smoker - no FHx - AG reviewed with patient - recommend continuing AREDS 2 - monitor yearly Cataract right eye Not visually significant, observe Pseudophakia left eye - Stable, observe I have confirmed and edited as necessary the relevant ophthalmic history, ROS, neuro exam finding as obtained by others. I have seen and examined Angelina Poole. I have discussed the case and management of this patients care with the resident or fellow if applicable. I also have reviewed and agree with the assessment and plan as stated above and agree with all of its relevant components. Art Copeland MD PhD documented in this encounter [facility] 07-08-2022 Miscellaneous Notes Thank you. Patient has not restarted RX at this time. Automated request from pharmacy. This request may be disregarded, Leah Ruiz LPN Can we please call patient and clarify if she has started taking the Azithromycin, on last office visit 06/18/2022 it was noted patient has self discontinued medication and doesn't wish to restart. Many Thanks Shea documented in this encounter [facility] 06-18-2022 History of Present illness Narrative [facility] [place], 06/18/2022: Name: Angelina Poole : 1940 The patient is here today by herself. HPI: Angelina Poole is a 81 yo never smoker female with PMH significant for bronchiectasis, shingles, HTN, and cataracts. Covid 19 infection in October 2021, received monoclonal Ab. The patient is here for follow up of bronchiectasis and asthma. Since the last Pulmonary Clinic visit 01/09/2022, the patient has not required ED care for exacerbation. There has been no hospital admission for exacerbation. Patient recently started on Moxifloxacin for exacerbation of bronchiectasis per PCP. Claims to be consistently compliant with prescribed maintenance Rx Flovent twice daily. Was started on Flovent after Covid infection and asthma-like symptoms. Patient reported it has made a significant difference in her cough and wheezing. Patient dislikes taking medications and has discontinued preventative Azithromycin approximately 3 months ago. Takes Mucinex as needed. Rarely uses rescue bronchodilator. Daily cough. Non-productive at times. When able to expel sputum it is clear. No hemoptysis. No wheezing. No dyspnea at rest. Exertional dyspnea has not changed. No fevers or chills. Night sweats. PMH: Updated with patient today. FAMH: Updated with patient today. SOCH: Updated with patient today. IMMUNIZATIONS Prevnar - 06/04/2014 Pneumovax - 05/13/2009 Influenza - xx COVID-19 - 11/23/2020 Allergies were reviewed and updated, and medications were reconciled with the patient. PHYSICAL EXAMINATION: BP 130/82 Pulse 86 Resp 17 Wt 48.1 kg (106 lb) SpO2 100% BMI 18.78 kg/m Gen: No acute distress. Cooperative with examination. ENT: Oral hygeine and dentition good. Pharynx clear. No halitosis. Resp: No stridor, accessory respiratory muscle use, supra-sternal or intercostal retractions. No wheezes, crackles. CV: Regular rythm. Heart tones normal. Radial pulses normal. Abd: Non distended. MSK: No kyphoscoliosis. Ext: Warm and well perfused. No clubbing, cyanosis, edema. Skin: No rash, ecchymoses. Neuro: Mental status normal. Affect normal. No tremor. DATA REVIEW: 01/21/2019 05/14/2020 11/21/2021 01/09/2022 FVC Liters 2.33 89 2.38, 94% 2.30, 91% 2.09, 86% FEV1 Liters 1.73 89 1.70, 88% 1.49,78% 1.39, 75% FEV1/FVC % 0.74 0.71 0.65 0.66 Exhaled nitric oxide (Janet), 01/09/2022: 19 (normal < 20). CXR, 08/01/2021 IMPRESSION: Bilateral interstitial prominence and coarse calcifications are stable. Bronchiectasis. No evidence of superimposed acute process EXAM DATE/TIME: 08/01/2021 9:52 AM COMPARISON: 07/20/2019 RESULT: Lines, tubes, and devices: None. Lungs and pleura: Bilateral interstitial prominence and coarse calcifications appear stable. Sequela of bronchiectasis noted. No new significant collapse or consolidation. No pleural fluid or pneumothorax Cardiomediastinal silhouette: Stable cardiomediastinal silhouette. Bones and soft tissues: Stable scoliosis and degenerative change Sputum culture, 01/27/2019 Moderate Staphylococcus aureus Mycobacterium avium complex Component Latest Ref Rng & Units 01/27/2019 Aspergillus fumigatus IgE <0.35 KU/L 0.81 (H) Aspergillus fumigatus Class 0 2 (H) ASSESSMENT/PLAN: 1. Bronchiectasis without complication (HCC) - ICD9: 494.0, ICD10: J47.9 Complete antibiotic course. Previously ordered sputum culture, however, patient was not able to produce a sample and PCP started on antibiotics. Will still have patient supply a sample if able to check for MAC. She symptomatically has night sweats, but no fevers or chills. Further recommendations to follow. Discussed resuming Azithromycin after completion of current Abx for preventative measures. Patient prefers not to at this time. Discussed with patient that if she has another exacerbation she will need to resume preventative therapy. Mucinex 1-2 tablets daily as needed to help thin secretions. Will order a mucus clearing device. - MUCUS CLEARING DEVICE - RESP CULTURE + STAIN 2. Mild persistent asthma, unspecified whether complicated - ICD9: 493.90, ICD10: J45.30 Previously declined ДМИТРИЙ. Continue Flovent 1 inhalation twice daily. Albuterol HFA inhaler, 2 inhalations 10-15 minutes prior to activities associated with shortness of breath, and as needed for rescue relief of shortness of breath or wheezing, up to 4 times daily. I addressed the questions of the patient, and she expressed understanding and acceptance of my answers. Linda Rodriguez PA-C documented in this encounter [facility] 06-12-2022 Miscellaneous Notes Patient notified and verbalizes understanding. Leah Ruiz LPN I have placed an order for a sputum culture. Please have patient come into the lab and produce a sputum sample prior to starting antibiotics. I will send the script for Dynapen to [facility]. She may start this after giving sputum sample. Shayy Patient called. Verified name and date of . Patient would like to let Linda Rodriguez PA-C know that she is having flare of of Bronchiectasis x three days. Denies fever. Reports feeling more lethargic, decreased appetite, increased cough of greensih colored grainage, pressure when breathing. Has appointment with PCP today but is asking if you can order what she took previously: Dynapen 250 MG four times daily for ten days. Pharmacy: [facility]. Did go over allergy list- current. Please review and advise. Melissa Noriega LPN documented in this encounter [facility] Evaluation + Plan note No data available for this section [facility] Diagnosis Bronchiectasis without complication (HCC)- Primary Bronchiectasis without acute exacerbation Mild persistent asthma, unspecified whether complicated [facility] Diagnosis Bronchiectasis without complication (HCC) Bronchiectasis without acute exacerbation [facility] Diagnosis Intermediate stage nonexudative age-related macular degeneration of both eyes- Primary [facility] Diagnosis Bronchiectasis with acute exacerbation (HCC)- Primary Bronchiectasis with acute exacerbation [facility] Diagnosis Bronchiectasis without complication (HCC)- Primary Bronchiectasis without acute exacerbation Mild intermittent asthma without complication Unspecified asthma History of MAC infection Personal history of other infectious and parasitic disease [facility] Diagnosis Bronchiectasis without complication (HCC)- Primary Bronchiectasis without acute exacerbation [facility] Diagnosis Mild persistent asthma, unspecified whether complicated [facility] Diagnosis Bronchiectasis with acute exacerbation (HCC)- Primary Bronchiectasis with acute exacerbation Acute cough History of MAC infection Personal history of other infectious and parasitic disease Mild persistent asthma, unspecified whether complicated Bronchiectasis without acute exacerbation (HCC) Bronchiectasis without acute exacerbation [facility] Diagnosis Bronchiectasis without complication (HCC)- Primary Bronchiectasis without acute exacerbation Abnormal sputum Chronic cough Cough [facility] Diagnosis Bronchiectasis without complication (HCC)- Primary Bronchiectasis without acute exacerbation Post-nasal drip Postnasal drip Weight loss Loss of weight [facility] Diagnosis Right facial numbness- Primary Disturbance of skin sensation Atypical facial pain Atypical face pain Claustrophobia Other isolated or specific phobias [facility] Diagnosis Temporomandibular joint disorder- Primary Temporomandibular joint disorders, unspecified [facility] Diagnosis Acute cough [facility] Diagnosis Acute cough [facility]* Diagnosis GCA (giant cell arteritis) (HCC)- Primary Giant cell arteritis Right facial numbness Disturbance of skin sensation Atypical facial pain Atypical face pain [facility] Diagnosis Right facial numbness Disturbance of skin sensation Atypical facial pain Atypical face pain [facility] Diagnosis Bronchiectasis with acute exacerbation (HCC)- Primary Bronchiectasis with acute exacerbation History of MAC infection Personal history of other infectious and parasitic disease [facility] Diagnosis GCA (giant cell arteritis) (HCC) Giant cell arteritis Right facial numbness Disturbance of skin sensation Atypical facial pain Atypical face pain [facility] No data available for this section [facility] Progress note No data available for this section [facility] Reason for referral (narrative)* Diagnostic Procedure Only (Routine) - Pending Review Specialty Diagnoses / Procedures Referred By Isabelle coffman Referred To Contact US IMAGING Diagnoses GCA (giant cell arteritis) (HCC) Right facial numbness Atypical facial pain Procedures US TEMPORAL ARTERY BILATERAL DUPLEX SCAN EXTRACRANIAL ART COMPL BI STUDY Yamilka Gonzalez PA-C [address] [place] [address] [place] [address] Referral ID Status Reason Start Date Expiration Date Visits Requested Visits Authorized [id number] Pending Review Auto-Generat ed Referral 3 09/24/2024 1 1 * Consult, Test, Treat (Routine) - Authorized Specialty Diagnoses / Procedures Referred By Isabelle coffman Referred To Contact Ophthalmology Diagnoses GCA (giant cell arteritis) (HCC) Right facial numbness Atypical facial pain Procedures CONSULT TO OPHTHALMOLOGY OFFICE/OUTPATIENT [facility] 60-74 MINUTES Yamilka Gonzalez PA-C [address] [place] [address] Referral ID Status Reason Start Date Expiration Date Visits Requested Visits Authorized [id number] Authorized PCP Requested Referral 3 08/25/2024 1 1 [facility] Diagnostic Procedure Only (Routine) - Closed Specialty Diagnoses / Procedures Referred By Isabelle coffman Referred To Contact US IMAGING Diagnoses GCA (giant cell arteritis) (HCC) Right facial numbness Atypical facial pain Procedures US TEMPORAL ARTERY BILATERAL DUPLEX SCAN EXTRACRANIAL ART COMPL BI Yamilka Mcmahan PA-C [address] [place] [address] [place] [address] Referral ID Status Reason Start Date Expiration Date V isits Requested Visits Authorized [id number] Closed Auto-Generate d Referral 08/26/2023 09/24/2024 1 1 [facility] for visit Narrative* Diagnostic Procedure Only (Routine) - Closed Specialty Diagnoses / Procedures Referred By Isabelle coffman Referred To Contact US IMAGING Diagnoses GCA (giant cell arteritis) (HCC) Right facial numbness Atypical facial pain Procedures US TEMPORAL ARTERY BILATERAL DUPLEX SCAN EXTRACRANIAL ART COMPL STUDY Yamilka Gonzalez PA-C [address] [place] [address] [place] [address] Referral ID Status Reason Start Date Expiration Date V isits Requested Visits Authorized [id number] Closed Auto-Generate d Referral 08/26/2023 09/24/2024 1 1 [facility] Summary Purpose Family History No Family History Records FoundNo Family History Records FoundNo Family History Records FoundNo Family History Records Found Advance Directives No Advanced Directives Records FoundNo Advanced Directives Records FoundNo Advanced Directives Records FoundNo Advanced Directives Records Found Medications Administered Section Inactive Administered Medications - up to 3 most recent administrations Medication Order MAR Action Action Date Dose Rate Site fluorescein-benoxinate 0.25-0.4 % 1 Drop (FLURESS) 1 Drop, BOTH EYES, DIRECTED, Starting on Thu08/08/22 at 1100, Until Thu08/08/22 at 2259, Administer for applanation tonometry. In the event of a Fluress shortage, administer 1 drop of [place]-Fluor into both eyes as directed for applanation tonometry. Given 08/08/2022 11:00 AM EDT 1 Drop Reason for Referral Specialty Diagnoses / Procedures Referred By Isabelle coffman Referred To Contact CT IMAGING Diagnoses Temporomandibular joint disorder Procedures CT TEMPOROMANDIBULAR JT WO IVCON CT LOWER EXTREMITY W/[place] [address] [place] [address] [place] [address] Referral ID Status Reason Start Date Expiration Date Visits Requested Visits Authorized [id number] Pending Review Auto-Generat ed Referral 3 09/04/2024 1 1 Specialty Diagnoses / Procedures Referred By Contac t Referred To Contact [facility] Diagnoses Temporomandibular joint disorder Procedures CONSULT TO PHYSICAL THERAPY PHYSICAL THERAPY EVALUATION HIGH COMPLE[place] [address] [place] [address] [place] [address] [facility] [place] [address] [id number] Referral ID Status Reason Start Date Expiration Date Visits Requested Visits Authorized [id number] Pending Review Auto-Generat ed Referral 3 08/05/2024 1 1 Specialty Diagnoses / Procedures Referred By Contac t Referred To Contact MR IMAGING Diagnoses Right facial numbness Atypical facial pain Procedures MRA BRAIN WO IVCON MRA, HEAD W/O CONTRAST Yamilka Gonzalez PA-C [address] [place] [address] Mr Imaging [facility] Referral ID Status Reason Start Date Expiration Date Visits Requested Visits Authorized [id number] Pending Review Auto-Generat ed Referral 3 08/27/2024 1 1 Specialty Diagnoses / Procedures Referred By Contac t Referred To Contact MR IMAGING Diagnoses Right facial numbness Atypical facial pain Procedures MRI BRAIN WO/W IVCON MRI BRAIN BRAIN STEM W/O W/CONTRAST MATERIAL Yamilka Gonzalez PA-C [address] [place] [address] [place] [address] Referral ID Status Reason Start Date Expiration Date Visits Requested Visits Authorized [id number] Pending Review Auto-Generat ed Referral 3 08/27/2024 1 1 Additional Source Comments INFORMATION SOURCE (unrecogn ized section and content) DATE CREATED AUTHOR AUTHOR'S ORGANIZ ATION 01/19/2021 [facility] DATE CREATED AUTHOR AUTHOR'S ORGANIZ ATION [facility]/20[facility] DATE CREATED AUTHOR AUTHOR'S ORGANIZ ATION 10/01/2023 [facility] Source Comments (unrecognize d section and content) In the event this informatio n is protected by the Federal Confidentiality of Alcohol and Drug Abuse Patient Records regulations: The Federal rules restrict any use of the information to criminally investigate or prosecute any alcohol or drug abuse patient.[facility] CenterIn the event this information is protected by the Federal Confidentiality of Alcohol and Drug Abuse Patient Records regulations: The Federal rules restrict any use of the information to criminally investigate or prosecute any alcohol or drug abuse patient.[facility] CenterIn the event this information is protected by the Federal Confidentiality of Alcohol and Drug Abuse Patient Records regulations: The Federal rules restrict any use of the information to criminally investigate or prosecute any alcohol or drug abuse patient.[facility] CenterIn the event this information is protected by the Federal Confidentiality of Alcohol and Drug Abuse Patient Records regulations: The Federal rules restrict any use of the information to criminally investigate or prosecute any alcohol or drug abuse patient.[facility] CenterIn the event this information is protected by the Federal Confidentiality of Alcohol and Drug Abuse Patient Records regulations: The Federal rules restrict any use of the information to criminally investigate or prosecute any alcohol or drug abuse patient.[facility] CenterIn the event this information is protected by the Federal Confidentiality of Alcohol and Drug Abuse Patient Records regulations: The Federal rules restrict any use of the information to criminally investigate or prosecute any alcohol or drug abuse patient.[facility] CenterIn the event this information is protected by the Federal Confidentiality of Alcohol and Drug Abuse Patient Records regulations: The Federal rules restrict any use of the information to criminally investigate or prosecute any alcohol or drug abuse patient.[facility] CenterIn the event this information is protected by the Federal Confidentiality of Alcohol and Drug Abuse Patient Records regulations: The Federal rules restrict any use of the information to criminally investigate or prosecute any alcohol or drug abuse patient.[facility] CenterIn the event this information is protected by the Federal Confidentiality of Alcohol and Drug Abuse Patient Records regulations: The Federal rules restrict any use of the information to criminally investigate or prosecute any alcohol or drug abuse patient.[facility] CenterIn the event this information is protected by the Federal Confidentiality of Alcohol and Drug Abuse Patient Records regulations: The Federal rules restrict any use of the information to criminally investigate or prosecute any alcohol or drug abuse patient.[facility] CenterIn the event this information is protected by the Federal Confidentiality of Alcohol and Drug Abuse Patient Records regulations: The Federal rules restrict any use of the information to criminally investigate or prosecute any alcohol or drug abuse patient.[facility] CenterIn the event this information is protected by the Federal Confidentiality of Alcohol and Drug Abuse Patient Records regulations: The Federal rules restrict any use of the information to criminally investigate or prosecute any alcohol or drug abuse patient.[facility] CenterIn the event this information is protected by the Federal Confidentiality of Alcohol and Drug Abuse Patient Records regulations: The Federal rules restrict any use of the information to criminally investigate or prosecute any alcohol or drug abuse patient.[facility] CenterIn the event this information is protected by the Federal Confidentiality of Alcohol and Drug Abuse Patient Records regulations: The Federal rules restrict any use of the information to criminally investigate or prosecute any alcohol or drug abuse patient.[facility] CenterIn the event this information is protected by the Federal Confidentiality of Alcohol and Drug Abuse Patient Records regulations: The Federal rules restrict any use of the information to criminally investigate or prosecute any alcohol or drug abuse patient.[facility] CenterIn the event this information is protected by the Federal Confidentiality of Alcohol and Drug Abuse Patient Records regulations: The Federal rules restrict any use of the information to criminally investigate or prosecute any alcohol or drug abuse patient.[facility] CenterIn the event this information is protected by the Federal Confidentiality of Alcohol and Drug Abuse Patient Records regulations: The Federal rules restrict any use of the information to criminally investigate or prosecute any alcohol or drug abuse patient.[facility] CenterIn the event this information is protected by the Federal Confidentiality of Alcohol and Drug Abuse Patient Records regulations: The Federal rules restrict any use of the information to criminally investigate or prosecute any alcohol or drug abuse patient.[facility] CenterIn the event this information is protected by the Federal Confidentiality of Alcohol and Drug Abuse Patient Records regulations: The Federal rules restrict any use of the information to criminally investigate or prosecute any alcohol or drug abuse patient.[facility] CenterIn the event this information is protected by the Federal Confidentiality of Alcohol and Drug Abuse Patient Records regulations: The Federal rules restrict any use of the information to criminally investigate or prosecute any alcohol or drug abuse patient.[facility] CenterIn the event this information is protected by the Federal Confidentiality of Alcohol and Drug Abuse Patient Records regulations: The Federal rules restrict any use of the information to criminally investigate or prosecute any alcohol or drug abuse patient.[facility] CenterIn the event this information is protected by the Federal Confidentiality of Alcohol and Drug Abuse Patient Records regulations: The Federal rules restrict any use of the information to criminally investigate or prosecute any alcohol or drug abuse patient.[facility] CenterIn the event this information is protected by the Federal Confidentiality of Alcohol and Drug Abuse Patient Records regulations: The Federal rules restrict any use of the information to criminally investigate or prosecute any alcohol or drug abuse patient.[facility] CenterIn the event this information is protected by the Federal Confidentiality of Alcohol and Drug Abuse Patient Records regulations: The Federal rules restrict any use of the information to criminally investigate or prosecute any alcohol or drug abuse patient.[facility] CenterIn the event this information is protected by the Federal Confidentiality of Alcohol and Drug Abuse Patient Records regulations: The Federal rules restrict any use of the information to criminally investigate or prosecute any alcohol or drug abuse patient.[facility] CenterIn the event this information is protected by the Federal Confidentiality of Alcohol and Drug Abuse Patient Records regulations: The Federal rules restrict any use of the information to criminally investigate or prosecute any alcohol or drug abuse patient.[facility] CenterIn the event this information is protected by the Federal Confidentiality of Alcohol and Drug Abuse Patient Records regulations: The Federal rules restrict any use of the information to criminally investigate or prosecute any alcohol or drug abuse patient.[facility] CenterIn the event this information is protected by the Federal Confidentiality of Alcohol and Drug Abuse Patient Records regulations: The Federal rules restrict any use of the information to criminally investigate or prosecute any alcohol or drug abuse patient.[facility] CenterIn the event this information is protected by the Federal Confidentiality of Alcohol and Drug Abuse Patient Records regulations: The Federal rules restrict any use of the information to criminally investigate or prosecute any alcohol or drug abuse patient.[facility] CenterIn the event this information is protected by the Federal Confidentiality of Alcohol and Drug Abuse Patient Records regulations: The Federal rules restrict any use of the information to criminally investigate or prosecute any alcohol or drug abuse patient.[facility] CenterIn the event this information is protected by the Federal Confidentiality of Alcohol and Drug Abuse Patient Records regulations: The Federal rules restrict any use of the information to criminally investigate or prosecute any alcohol or drug abuse patient.[facility] CenterIn the event this information is protected by the Federal Confidentiality of Alcohol and Drug Abuse Patient Records regulations: The Federal rules restrict any use of the information to criminally investigate or prosecute any alcohol or drug abuse patient.[facility] CenterIn the event this information is protected by the Federal Confidentiality of Alcohol and Drug Abuse Patient Records regulations: The Federal rules restrict any use of the information to criminally investigate or prosecute any alcohol or drug abuse patient.[facility] CenterIn the event this information is protected by the Federal Confidentiality of Alcohol and Drug Abuse Patient Records regulations: The Federal rules restrict any use of the information to criminally investigate or prosecute any alcohol or drug abuse patient.[facility] CenterIn the event this information is protected by the Federal Confidentiality of Alcohol and Drug Abuse Patient Records regulations: The Federal rules restrict any use of the information to criminally investigate or prosecute any alcohol or drug abuse patient.[facility] CenterIn the event this information is protected by the Federal Confidentiality of Alcohol and Drug Abuse Patient Records regulations: The Federal rules restrict any use of the information to criminally investigate or prosecute any alcohol or drug abuse patient.[facility] Reason for Visit (unrecogniz ed section and content) Reason Comments Established Patient 6 month follow up Reason Comments Refill Request Reason Comments Iritis Follow Up herpes zoster iritis Reason Comments Patient Question Reason Comments Established Patient 3 month follow up bronchiectasis Reason Comments Patient Question Lab results, cough Reason Comments Results Sputum Reason Onset Date Comments Refill Request 11/04/2022 Reason Comments Established Patient bronchiectasis Reason Comments Results Reason Comments Established Patient follow up bronchiect asis 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 Reason Comments Established Patient Bronchiectasis Reason Comments Patient Question Patient Update Reason Comments New Patient Reason Comments Orders Reason Comments Patient Update Patient Question Reason Comments Results Specialty Diagnoses / Procedures Referred By Isabelle t Referred To Contact [facility] Diagnoses Right facial numbness Atypical facial pain Procedures MRI BRAIN WO/W IVCON MRI BRAIN BRAIN STEM W/O W/CONTRAST MATERIAL Yamilka Gonzalez PA-C [address] [place] [address] [place] [address] Referral ID Status Reason Start Date Expiration Date V isits Requested Visits Authorized [id number] Closed Auto-Generate d Referral 08/26/2023 09/25/2023 1 1 Reason Comments Established Patient increased coughing Care Teams (unrecognized sec tion and content) Front Office Manager Relationship Specialty Start Date End Date Mayco Hartman MD [address] [place] [address] PCP - General 11/23/03 Front Office Manager Relationship Specialty Start Date End Date Mayco Hartman MD [address] [place] [address] PCP - General 11/23/03 Front Office Manager Relationship Specialty Start Date End Date Mayco Hartman MD [address] [place] [address] PCP - General 11/23/03 Front Office Manager Relationship Specialty Start Date End Date Mayco Hartman MD [address] [place] [address] PCP - General 11/23/03 Front Office Manager Relationship Specialty Start Date End Date Mayco Hartman MD [address] [place] [address] PCP - General 11/23/03 Front Office Manager Relationship Specialty Start Date End Date Mayco Hartman MD [address] [place] [address] PCP - General 11/23/03 Front Office Manager Relationship Specialty Start Date End Date Mayco Yepez [address] [place] [address] PCP - General Family Medicine 11/24/22 Front Office Manager Relationship Specialty Start Date End Date Mayco Yepez [address] [place] [address] PCP - General Family Medicine 11/24/22 Front Office Manager Relationship Specialty Start Date End Date Mayco Yepez [address] [place] [address] PCP - General Family Medicine 11/24/22 Front Office Manager Relationship Specialty Start Date End Date Mayco Yepez [address] [place] [address] PCP - General Family Medicine 11/24/22 Front Office Manager Relationship Specialty Start Date End Date Mayco Yepez [address] [place] [address] PCP - General Family Medicine 11/24/22 Front Office Manager Relationship Specialty Start Date End Date Mayco Yepez MD [address] [place] [address] PCP - General Family Medicine 11/24/22 Front Office Manager Relationship Specialty Start Date End Date Mayco Yepez MD [address] [place] [address] PCP - General Family Medicine 11/24/22 Front Office Manager Relationship Specialty Start Date End Date Mayco Yepez MD [address] [place] [address] PCP - General Family Medicine 11/24/22 Front Office Manager Relationship Specialty Start Date End Date Mayco Yepez MD [address] [place] [address] PCP - General Family Medicine 11/24/22 Front Office Manager Relationship Specialty Start Date End Date Mayco Yepez MD [address] [place] [address] PCP - General Family Medicine 11/24/22 Front Office Manager Relationship Specialty Start Date End Date Mayco Yepez MD [address] [place] [address] PCP - General Family Medicine 11/24/22 Front Office Manager Relationship Specialty Start Date End Date Mayco Yepez MD [address] [place] [address] PCP - General Family Medicine 11/24/22 Front Office Manager Relationship Specialty Start Date End Date Mayco Yepez MD [address] [place] [address] PCP - General Family Medicine 11/24/22 Front Office Manager Relationship Specialty Start Date End Date Mayco Yepez MD [address] [place] [address] PCP - General Family Medicine 11/24/22 Front Office Manager Relationship Specialty Start Date End Date Mayco Yepez MD [address] [place] [address] PCP - General Family Medicine 11/24/22 Front Office Manager Relationship Specialty Start Date End Date Mayco Yepez MD [address] [place] [address] PCP - General Family Medicine 11/24/22 Front Office Manager Relationship Specialty Start Date End Date Mayco Yepez MD [address] [place] [address] PCP - General Family Medicine 11/24/22 Front Office Manager Relationship Specialty Start Date End Date Mayco Yepez MD [address] [place] [address] PCP - General Family Medicine 11/24/22 Front Office Manager Relationship Specialty Start Date End Date Mayco Yepez MD [address] [facility] [address] [place] [address] PCP - General Family Medicine 11/24/22 Front Office Manager Relationship Specialty Start Date End Date Mayco Yepez MD [address] [facility] [address] [place] [address] PCP - General Family Medicine 11/24/22 Care Team (unrecognized sect ion and content) Care Team Personnel Name: MAYCO HARTMAN MD Member Role: Primary Care Physician Address: Address: [address] [place] [address] Care Team Related Persons Name: ALISE POOLE Address: [address] Care Team Personnel Name: MAYCO HARTMAN MD Member Role: Primary Care Physician Address: Address: [address] [place] [address] Care Team Related Persons Name: ALISE POOLE Address: [address] FOR RECORDS PERTAINING TO PATIENTS WHO ARE OR HAVE BEEN ENROLLED IN A CHEMICAL DEPENDENCY/SUBSTANCEABUSE PROGRAM, SOME INFORMATION MAY BE OMITTED. This clinical summary was aggregated from multiple sources. Caution should be exercised in using it in the provision of clinical care. This summary normalizes information from multiple sources, and as a consequence, information in this document may materially change the coding, format and clinical context of patient data. In addition, data may be omitted in some cases. CLINICAL DECISIONS SHOULD BE BASED ON THE PRIMARY CLINICAL RECORDS. [employer] provides no warranty or guarantee of the accuracy or completeness of information in this document.
[2023-11-04 10:32] LABS: Color, Urine Yellow (Yellow); Glucose, Dipstick Normal (Normal); Ketone-Dipstick Negative (Negative); Leukocyte Esterase-Dipstick 500 /ul (Negative); Nitrite-Dipstick Negative (Negative); Occult Blood-Urine 50 /ul (Negative); Protein-Dipstick 30 mg/dl (Negative); Urine Bilirubin Dipstick Negative (Negative); Urine Clarity Clear (Clear); Urine Urobilinogen 1 mg/dl (Normal); Urine pH 6.5 (5.0 - 8.0)
[2023-11-04 10:49] LABS: Absolute Lymphocyte Count 1.66 X10^3/uL (0.83-4.51); Basophil# 0.05 X10^3/uL; Basophil% 0.3 % (0-1); Eosinophil# 0.18 X10^3/uL; Eosinophils% 1.1 % (0-5); Hematocrit 37.3 % (37-47); Hemoglobin 11.9 g/dL (12.0-15.0); Lymphocyte # 1.66 X10^3/ul (0.83-4.51); Lymphocyte % 10.5 % (19-41); Mean Corp Hgb Conc 31.9 g/dL (32-36); Mean Corpuscular Hgb 27.5 pg (27.0-32.0); Mean Corpuscular Volume 86.1 fL (81-99); Monocyte# 2.78 X10^3/uL; Monocyte% 17.6 % (0-10); NRBC Flagged by Analyzer 0 % (0-5); Neutrophil # 11.03 X10^3/uL (2.7-7.7); Neutrophil % 69.8 % (47-70); POSITIVE DIFFERENTIAL YES; Platelet Count 399 K/mm3 (150-450); RBC Distribution Width CV 14.6 % (11.6-14.6); RBC Distribution Width SD 46.8 fl (35.1-43.9); Red Blood Count 4.33 M/mm3 (4.2-5.4); White Blood Count 15.8 K/mm3 (4.4-11.0)
[2023-11-04 10:57] LABS: Differential Indicated SCAN CRITERIA MET; Red Blood Cells-Urine 0-5 SEEN /hpf (0-5); Squamous Epithelial Cells - UA 0-5 SEEN /hpf (5-10); White Blood Cells 25-50 SEEN /hpf (0-5)
[2023-11-04 11:58] LABS: ALB/GLOB Ratio 0.5 RATIO (0.9-2.4); AST(SGOT) 22 U/L (15-37); Alanine Aminotransfer ALT/SGPT 15 U/L (13-56); Albumin, Serum 2.8 g/dL (3.2-5.0); Alkaline Phosphatase 107 U/L (45-117); Anion Gap 8 (5-15); BUN 9 mg/dL (7-18); BUN/Creat Ratio 15.5 RATIO (10-20); Calcium,Total 8.8 mg/dL (8.5-10.1); Chloride 94 mmol/L (98-107); Cholesterol 146 mg/dL (200); Creatinine, Serum 0.58 mg/dL (0.55-1.02); EST Glomerular Filtration Rate 105 mL/min (>60); Est Glom Filt Rate - Afr Amer 127 mL/min (>60); Globulin 5.1 g/dL (2.2-4.2); Glucose 96 mg/dL (74-106); High Density Lipoprotein 49 mg/dL; Potassium 3.9 mmol/L (3.5-5.1); Protein, Total 7.9 g/dL (6.4-8.2); Sodium Level 129 mmol/L (136-145); T4 Free Direct 1.47 ng/dL (0.76-1.46); Triglycerides 82 mg/dL; Very Low Density Lipoprotein 16 mg/dL (5-40)
[2023-11-05 10:38] LABS: Pathologist Review Reviewed
== END | disposition home or self-care (01) ==
LOC: MFPLAB 08:46
PROVIDERS: PCP Family Medicine; Visit Provider Family Medicine
DX: E03.9 Hypothyroidism, unspecified (principal); I10 Essential (primary) hypertension; M81.0 Age-related osteoporosis without current pathological fracture
CPT/HCPCS: 36415; 80053; 80061; 81001; 82306; 84439; 84443; 85025

== ENCOUNTER → 2023-12-22 | Outpatient (CLI) | payer MEDICARE, SELFPAY ==
[2023-12-22 19:21] LABS: Anion Gap 8 (5-15); BUN 11 mg/dL (7-18); BUN/Creat Ratio 15.9 RATIO (10-20); Calcium,Total 9.3 mg/dL (8.5-10.1); Chloride 94 mmol/L (98-107); Creatinine, Serum 0.69 mg/dL (0.55-1.02); EST Glomerular Filtration Rate 86 mL/min (>60); Est Glom Filt Rate - Afr Amer 104 mL/min (>60); Glucose 92 mg/dL (74-106); Potassium 4.5 mmol/L (3.5-5.1); Sodium Level 131 mmol/L (136-145)
== END | disposition home or self-care (01) ==
LOC: MFPLAB 10:38
PROVIDERS: PCP Family Medicine; Visit Provider Family Medicine
DX: R82.81 Pyuria (principal)
CPT/HCPCS: 36415; 80048; 87086; 87088

== ENCOUNTER → 2024-03-15 | Outpatient (CLI) | payer MEDICARE, SELFPAY ==
[2024-03-15 13:05] LABS: Anion Gap 7 (5-15); BUN 12 mg/dL (7-18); BUN/Creat Ratio 17.4 RATIO (10-20); Calcium,Total 9.4 mg/dL (8.5-10.1); Chloride 96 mmol/L (98-107); Creatinine, Serum 0.69 mg/dL (0.55-1.02); EST Glomerular Filtration Rate 86 mL/min (>60); Est Glom Filt Rate - Afr Amer 104 mL/min (>60); Glucose 93 mg/dL (74-106); Potassium 4.3 mmol/L (3.5-5.1); Sodium Level 131 mmol/L (136-145)
[2024-03-16 12:10] LABS: PROEL- A/G Ratio 0.8 (0.7-1.7); PROEL- Albumin 3.5 g/dL (2.9-4.4); PROEL- Alpha-1 Globulin 0.4 g/dL (0.0-0.4); PROEL- Alpha-2 Globulin 0.7 g/dL (0.4-1.0); PROEL- Beta Globulin 1.1 g/dL (0.7-1.3); PROEL- Gamma Globulin 2.1 g/dL (0.4-1.8); PROEL- Globulin, Total 4.3 g/dL (2.2-3.9); PROEL- TOTAL PROTEIN 7.8 g/dL (6.0-8.5); PROEL-M-Spike Not Observed g/dL (Not Observed)
== END | disposition home or self-care (01) ==
LOC: MFPLAB 10:49
PROVIDERS: PCP Family Medicine; Visit Provider Family Medicine
DX: R77.1 Abnormality of globulin (principal); E77.8 Other disorders of glycoprotein metabolism; E87.0 Hyperosmolality and hypernatremia; E87.1 Hypo-osmolality and hyponatremia
CPT/HCPCS: 36415; 80048; 84165

== ENCOUNTER → 2024-05-25 | Outpatient (CLI) | payer MEDICARE, SELFPAY ==
--- NOTE | 2024-05-25 13:17 | BI_ITS ---
MAMMOGRAPHY - BILATERAL SCREENING REASON FOR EXAM: Female, 83 years old. Routine annual screening examination. PERTINENT HISTORY: Daughter with breast cancer. Aunt with breast cancer. TECHNIQUE: Digital bilateral breast marck (3D mammographic acquisition) in the CC and MLO projections. 2-D mediolateral oblique (MLO) and craniocaudad (CC) views of both breasts were obtained. CAD: Full Field Digital Mammography with Computer Added Detection was performed. COMPARISON: Comparison is made with prior study dated April 23, 2023 and April 22, 2022. FINDINGS: Breast Composition: The breasts are extremely dense, which lowers the sensitivity of mammography. There are no dominant masses or suspicious calcifications. No other significant abnormalities are identified. There has been no significant change since the prior study. BI/SCRN MAMM (CAD)W/MARCK BILAT IMPRESSION: Stable bilateral screening mammogram. Yearly follow-up mammogram recommended. (A) ASSESSMENT CATEGORY: BIRADS Category 1: Negative. A letter regarding these results will be sent to the patient by the facility within 30 days. Approximately 10% of breast cancers are not detected by mammography. A normal mammogram should not delay biopsy of a clinically suspicious abnormality. [id number] Electronically Signed: Miguel Paz MD at 15:11 EDT ,
== END | disposition home or self-care (01) ==
LOC: OPBI 13:16
PROVIDERS: PCP Family Medicine; Referring Provider Family Medicine; Visit Provider Family Medicine
DX: Z12.31 Encounter for screening mammogram for malignant neoplasm of breast (principal)
CPT/HCPCS: 77063; 77067

== ENCOUNTER → 2024-07-13 | Outpatient (CLI) | payer MEDICARE, SELFPAY ==
[2024-07-13 09:30] LABS: Bacteria 0 SEEN /hpf (None Seen); Mucous, Urine 0 SEEN /hpf (<or=2+); Red Blood Cells-Urine 0 SEEN /hpf (0-5); White Blood Cells 0 SEEN /hpf (0-5)
[2024-07-13 12:00] LABS: Color, Urine Yellow (Yellow); Glucose, Dipstick Normal (Normal); Ketone-Dipstick Negative (Negative); Leukocyte Esterase-Dipstick Negative /ul (Negative); Nitrite-Dipstick Negative (Negative); Occult Blood-Urine Negative /ul (Negative); Protein-Dipstick Negative (Negative); Specific Gravity, Urine 1.005 (1.002-1.030); Urine Bilirubin Dipstick Negative (Negative); Urine Clarity Sl. Cloudy (Clear); Urine Urobilinogen Normal (Normal); Urine pH 6.5 (5.0 - 8.0)
[2024-07-13 12:03] LABS: Absolute Lymphocyte Count 1.51 X10^3/uL (0.83-4.51); Absolute Neutrophil Count 6.9 X10^3/uL (2.0-7.7); Basophil# 0.06 X10^3/uL; Basophil% 0.6 % (0-1); Hematocrit 42.6 % (37-47); Hemoglobin 13.8 g/dL (12.0-15.0); Lymphocyte # 1.51 X10^3/ul (0.83-4.51); Mean Corp Hgb Conc 32.4 g/dL (32-36); Mean Corpuscular Hgb 29.1 pg (27.0-32.0); Mean Corpuscular Volume 89.9 fL (81-99); Mean Platelet Vol. 10.7 fl (6.2-12.0); Monocyte# 1.39 X10^3/uL; Monocyte% 13.8 % (0-10); NRBC Flagged by Analyzer 0 % (0-5); Neutrophil # 6.91 X10^3/uL (2.7-7.7); Neutrophil % 68.3 % (47-70); Platelet Count 283 K/mm3 (150-450); RBC Distribution Width CV 14.3 % (11.6-14.6); RBC Distribution Width SD 47.1 fl (35.1-43.9); Red Blood Count 4.74 M/mm3 (4.2-5.4); White Blood Count 10.1 K/mm3 (4.4-11.0)
[2024-07-13 12:06] LABS: Squamous Epithelial Cells - UA 0-5 SEEN /hpf (5-10)
[2024-07-13 12:22] LABS: Vitamin D,25 Hydroxy 55.8 ng/mL
[2024-07-13 12:27] LABS: ALB/GLOB Ratio 0.8 RATIO (0.9-2.4); AST(SGOT) 24 U/L (15-37); Alanine Aminotransfer ALT/SGPT 16 U/L (13-56); Albumin, Serum 3.5 g/dL (3.2-5.0); Alkaline Phosphatase 105 U/L (45-117); Anion Gap 6 (5-15); BUN 6 mg/dL (7-18); BUN/Creat Ratio 8.9 RATIO (10-20); Calcium,Total 9.2 mg/dL (8.5-10.1); Chloride 98 mmol/L (98-107); Creatinine, Serum 0.68 mg/dL (0.55-1.02); EST Glomerular Filtration Rate 88 mL/min (>60); Est Glom Filt Rate - Afr Amer 107 mL/min (>60); Globulin 4.6 g/dL (2.2-4.2); Glucose 95 mg/dL (74-106); Magnesium 2.1 mg/dL (1.6-2.6); Potassium 3.6 mmol/L (3.5-5.1); Protein, Total 8.1 g/dL (6.4-8.2); Sodium Level 135 mmol/L (136-145); T4 Free Direct 1.09 ng/dL (0.76-1.46)
[2024-07-18 13:07] LABS: PROEL- A/G Ratio 0.9 (0.7-1.7); PROEL- Albumin 3.7 g/dL (2.9-4.4); PROEL- Alpha-1 Globulin 0.3 g/dL (0.0-0.4); PROEL- Alpha-2 Globulin 0.8 g/dL (0.4-1.0); PROEL- Beta Globulin 1.1 g/dL (0.7-1.3); PROEL- Gamma Globulin 1.9 g/dL (0.4-1.8); PROEL- Globulin, Total 4.1 g/dL (2.2-3.9); PROEL- TOTAL PROTEIN 7.8 g/dL (6.0-8.5); PROEL-M-Spike Not Observed g/dL (Not Observed)
== END | disposition home or self-care (01) ==
LOC: MTLAB 09:26
PROVIDERS: PCP Family Medicine; Referring Provider Family Medicine; Visit Provider Family Medicine
DX: E88.09 Other disorders of plasma-protein metabolism, not elsewhere classified (principal); E03.9 Hypothyroidism, unspecified; I10 Essential (primary) hypertension; E55.9 Vitamin D deficiency, unspecified
CPT/HCPCS: 36415; 80053; 81001; 82306; 83735; 84165; 84439; 84443; 85025

== ENCOUNTER → 2024-09-20 | Outpatient (CLI) | payer MEDICARE, SELFPAY ==
[2024-09-20 19:11] LABS: ALB/GLOB Ratio 0.8 RATIO (0.9-2.4); AST(SGOT) 16 U/L (15-37); Alanine Aminotransfer ALT/SGPT 13 U/L (13-56); Albumin, Serum 3.5 g/dL (3.2-5.0); Alkaline Phosphatase 108 U/L (45-117); Anion Gap 5 (5-15); BUN 9 mg/dL (7-18); BUN/Creat Ratio 11.4 RATIO (10-20); Calcium,Total 9.4 mg/dL (8.5-10.1); Chloride 96 mmol/L (98-107); Creatinine, Serum 0.79 mg/dL (0.55-1.02); EST Glomerular Filtration Rate 74 mL/min (>60); Est Glom Filt Rate - Afr Amer 89 mL/min (>60); Globulin 4.6 g/dL (2.2-4.2); Glucose 76 mg/dL (74-106); Potassium 4.1 mmol/L (3.5-5.1); Protein, Total 8.1 g/dL (6.4-8.2); Sodium Level 133 mmol/L (136-145)
== END | disposition home or self-care (01) ==
LOC: MFPLAB 15:29
PROVIDERS: PCP Family Medicine; Visit Provider Family Medicine
DX: R81 Glycosuria (principal)
CPT/HCPCS: 36415; 80053

== ENCOUNTER → 2024-09-21 | Outpatient (CLI) | payer MEDICARE, SELFPAY | END | disposition home or self-care (01) | LOC: LAB.FUTURE 01:04 → LABSPEC 10:26 | PROVIDERS: PCP Family Medicine; Visit Provider Family Medicine | DX: R82.90 Unspecified abnormal findings in urine (principal) | CPT/HCPCS: 87077; 87086; 87088; 87186 ==

== ENCOUNTER → 2024-10-06 | Outpatient (CLI) | payer MEDICARE, SELFPAY ==
[2024-10-06 10:50] LABS: Anion Gap 5 (5-15); BUN 9 mg/dL (7-18); BUN/Creat Ratio 13.7 RATIO (10-20); Chloride 95 mmol/L (98-107); Creatinine, Serum 0.66 mg/dL (0.55-1.02); EST Glomerular Filtration Rate 91 mL/min (>60); Est Glom Filt Rate - Afr Amer 110 mL/min (>60); Glucose 96 mg/dL (74-106); Potassium 4.1 mmol/L (3.5-5.1); Sodium Level 133 mmol/L (136-145)
== END | disposition home or self-care (01) ==
LOC: MFPLAB 08:53
PROVIDERS: PCP Family Medicine; Referring Provider Family Medicine; Visit Provider Family Medicine
DX: I10 Essential (primary) hypertension (principal)
CPT/HCPCS: 36415; 80048

== ENCOUNTER → 2024-11-11 | Outpatient (CLI) | payer MEDICARE, SELFPAY ==
[2024-11-11 11:20] LABS: Anion Gap 7 (5-15); BUN 9 mg/dL (7-18); BUN/Creat Ratio 14.4 RATIO (10-20); Chloride 94 mmol/L (98-107); Creatinine, Serum 0.62 mg/dL (0.55-1.02); EST Glomerular Filtration Rate 97 mL/min (>60); Est Glom Filt Rate - Afr Amer 117 mL/min (>60); Glucose 119 mg/dL (74-106); Sodium Level 129 mmol/L (136-145)
== END | disposition home or self-care (01) ==
LOC: MFPLAB 08:07
PROVIDERS: PCP Family Medicine; Referring Provider Family Medicine; Visit Provider Family Medicine
DX: I10 Essential (primary) hypertension (principal)
CPT/HCPCS: 36415; 80048

== ENCOUNTER → 2024-11-16 | Outpatient (CLI) | payer MEDICARE, SELFPAY ==
[2024-11-16 12:32] LABS: Absolute Neutrophil Count 9.5 X10^3/uL (2.0-7.7); Basophil% 0.8 % (0-1); Eosinophil# 0.26 X10^3/uL; Eosinophils% 2.1 % (0-5); Hematocrit 41.7 % (37-47); Hemoglobin 13.6 g/dL (12.0-15.0); Lymphocyte % 10.3 % (19-41); Mean Corp Hgb Conc 32.6 g/dL (32-36); Mean Corpuscular Hgb 29.8 pg (27.0-32.0); Mean Corpuscular Volume 91.4 fL (81-99); Mean Platelet Vol. 10.8 fl (6.2-12.0); Monocyte# 1.43 X10^3/uL; Monocyte% 11.3 % (0-10); NRBC Flagged by Analyzer 0 % (0-5); Neutrophil # 9.52 X10^3/uL (2.7-7.7); Platelet Count 357 K/mm3 (150-450); RBC Distribution Width CV 13.5 % (11.6-14.6); RBC Distribution Width SD 45.7 fl (35.1-43.9); Red Blood Count 4.56 M/mm3 (4.2-5.4); White Blood Count 12.7 K/mm3 (4.4-11.0)
[2024-11-16 12:50] LABS: Urine Chloride 27 mmol/L (Not Establ.); Urine Sodium 33 mmol/L (Not Establ.)
[2024-11-16 12:57] LABS: Vitamin D,25 Hydroxy 55.2 ng/mL
[2024-11-16 13:20] LABS: T4 Free Direct 1.16 ng/dL (0.76-1.46)
[2024-11-16 13:34] LABS: Osmolality, Serum 283 mOsm/KG (280-301); Osmolality, Urine 117 mOsm/KG
[2024-11-17 13:44] LABS: ALB/GLOB Ratio 0.7 RATIO (0.9-2.4); AST(SGOT) 19 U/L (15-37); Alanine Aminotransfer ALT/SGPT 15 U/L (13-56); Albumin, Serum 3.4 g/dL (3.2-5.0); Alkaline Phosphatase 106 U/L (45-117); Anion Gap 8 (5-15); BUN 9 mg/dL (7-18); BUN/Creat Ratio 13.2 RATIO (10-20); Calcium,Total 9.1 mg/dL (8.5-10.1); Chloride 95 mmol/L (98-107); Creatinine, Serum 0.68 mg/dL (0.55-1.02); EST Glomerular Filtration Rate 87 mL/min (>60); Est Glom Filt Rate - Afr Amer 105 mL/min (>60); Globulin 4.8 g/dL (2.2-4.2); Glucose 84 mg/dL (74-106); Potassium 4.4 mmol/L (3.5-5.1); Protein, Total 8.2 g/dL (6.4-8.2); Sodium Level 132 mmol/L (136-145)
== END | disposition home or self-care (01) ==
PROVIDERS: PCP Family Medicine; Referring Provider Family Medicine; Visit Provider Family Medicine
DX: E03.9 Hypothyroidism, unspecified (principal); E55.9 Vitamin D deficiency, unspecified; E87.1 Hypo-osmolality and hyponatremia
CPT/HCPCS: 36415; 80053; 82306; 82436; 83930; 83935; 84133; 84165; 84300; 84439; 84443; 85025

== ENCOUNTER → 2024-12-14 | Outpatient (CLI) | payer MEDICARE, SELFPAY ==
[2024-12-14 12:55] LABS: Anion Gap 11 (5-15); BUN 8 mg/dL (4-19); BUN/Creat Ratio 11.3 RATIO (10-20); Calcium,Total 9.3 mg/dL (7.6-11.0); Carbon Dioxide 26.8 mmol/L (21.0-32.0); Chloride 94 mmol/L (98-108); Creatinine, Serum 0.66 mg/dL (0.70-1.20); EST Glomerular Filtration Rate 86 (>60); Glucose 77 mg/dL (70-99); Potassium 4.3 mmol/L (3.3-5.1); Sodium Level 132 mmol/L (133-145)
== END | disposition home or self-care (01) ==
PROVIDERS: PCP Family Medicine; Referring Provider Family Medicine; Visit Provider Family Medicine
DX: E87.1 Hypo-osmolality and hyponatremia (principal)
CPT/HCPCS: 36415; 80048

== ENCOUNTER → 2025-03-01 | Outpatient (CLI) | payer MEDICARE, SELFPAY ==
[2025-03-01 12:28] LABS: Absolute Lymphocyte Count 1.31 X10^3/uL (0.83-4.51); Absolute Neutrophil Count 9.1 X10^3/uL (2.0-7.7); Basophil# 0.07 X10^3/uL; Basophil% 0.6 % (0-1); Eosinophil# 0.53 X10^3/uL; Eosinophils% 4.2 % (0-5); Hematocrit 38.5 % (37-47); Hemoglobin 12.8 g/dL (12.0-15.0); Lymphocyte # 1.31 X10^3/ul (0.83-4.51); Lymphocyte % 10.3 % (19-41); Mean Corp Hgb Conc 33.2 g/dL (32-36); Mean Corpuscular Hgb 29.7 pg (27.0-32.0); Mean Corpuscular Volume 89.3 fL (81-99); Mean Platelet Vol. 10.3 fl (6.2-12.0); Monocyte# 1.61 X10^3/uL; Monocyte% 12.7 % (0-10); NRBC Flagged by Analyzer 0 % (0-5); Neutrophil % 71.6 % (47-70); POSITIVE DIFFERENTIAL YES; Platelet Count 407 K/mm3 (150-450); RBC Distribution Width CV 13.3 % (11.6-14.6); Red Blood Count 4.31 M/mm3 (4.2-5.4); White Blood Count 12.7 K/mm3 (4.4-11.0)
[2025-03-01 12:31] LABS: Differential Indicated SCAN CRITERIA MET
[2025-03-02 12:46] LABS: ALB/GLOB Ratio 0.9 RATIO (0.9-2.4); AST(SGOT) 17 U/L (<=31); Alanine Aminotransfer ALT/SGPT 8 U/L (<=34); Albumin, Serum 3.6 g/dL (3.4-4.8); Alkaline Phosphatase 90 U/L (35-104); Anion Gap 14 (5-15); BUN 7 mg/dL (4-19); BUN/Creat Ratio 12.6 RATIO (10-20); Calcium,Total 8.9 mg/dL (7.6-11.0); Chloride 92 mmol/L (98-108); Creatinine, Serum 0.55 mg/dL (0.70-1.20); EST Glomerular Filtration Rate 90 (>60); Globulin 3.9 g/dL (2.2-4.2); Glucose 87 mg/dL (70-99); Potassium 4.6 mmol/L (3.3-5.1); Protein, Total 7.5 g/dL (5.9-8.4); Sodium Level 130 mmol/L (133-145); Total Bilirubin 0.43 mg/dL (0.00-1.30); Vitamin D,25 Hydroxy 54.6 ng/mL (30-100)
[2025-03-02 14:14] LABS: Vitamin B12 2139 pg/mL (180-914)
== END | disposition home or self-care (01) ==
LOC: MFPLAB 10:56
PROVIDERS: PCP Family Medicine; Referring Provider Family Medicine; Visit Provider Family Medicine
DX: E55.9 Vitamin D deficiency, unspecified (principal); R53.83 Other fatigue
CPT/HCPCS: 36415; 80053; 82306; 82607; 84439; 84443; 85025

== ENCOUNTER → 2025-07-13 | Outpatient (CLI) | payer MEDICARE, SELFPAY ==
[2025-07-13 15:50] LABS: Osmolality, Serum 274 mOsm/KG (280-301)
[2025-07-13 16:09] LABS: Anion Gap 12 (5-15); BUN 9 mg/dL (4-19); BUN/Creat Ratio 15.5 RATIO (10-20); Calcium,Total 9.4 mg/dL (7.6-11.0); Carbon Dioxide 27.0 mmol/L (21.0-32.0); Chloride 92 mmol/L (98-108); Glucose 84 mg/dL (70-99); Potassium 4.9 mmol/L (3.3-5.1)
[2025-07-13 16:15] LABS: Osmolality, Urine 313 mOsm/KG
== END | disposition home or self-care (01) ==
LOC: MFPLAB 11:33
PROVIDERS: PCP Family Medicine; Referring Provider Family Medicine; Visit Provider Family Medicine
DX: E87.1 Hypo-osmolality and hyponatremia (principal)
CPT/HCPCS: 36415; 80048; 82436; 83930; 83935; 84133; 84300

== ENCOUNTER 2025-07-19 11:56 | Outpatient (CLI) | payer MEDICARE, SELFPAY ==
[2025-07-19 15:07] LABS: Hematocrit 40.7 % (37-47); Hemoglobin 13.4 g/dL (12.0-15.0); Immature Granulocytes Count 0.070 X10^3/uL (0.0-0.0); Mean Corp Hgb Conc 32.9 g/dL (32-36); Mean Corpuscular Volume 89.3 fL (81-99); Mean Platelet Vol. 10.7 fl (6.2-12.0); NRBC Flagged by Analyzer 0 % (0-5); POSITIVE DIFFERENTIAL YES; Platelet Count 353 K/mm3 (150-450); RBC Distribution Width CV 13.5 % (11.6-14.6); RBC Distribution Width SD 43.9 fl (35.1-43.9); Red Blood Count 4.56 M/mm3 (4.2-5.4); White Blood Count 14.9 K/mm3 (4.4-11.0)
[2025-07-19 15:20] LABS: Differential Indicated SCAN CRITERIA MET
[2025-07-19 15:24] LABS: AST(SGOT) 20 U/L (<=31); Alanine Aminotransfer ALT/SGPT 7 U/L (<=34); Albumin, Serum 4.1 g/dL (3.4-4.8); Alkaline Phosphatase 102 U/L (35-104); Anion Gap 12 (5-15); BUN 8 mg/dL (4-19); BUN/Creat Ratio 14.1 RATIO (10-20); Calcium,Total 9.4 mg/dL (7.6-11.0); Carbon Dioxide 26.8 mmol/L (21.0-32.0); Chloride 92 mmol/L (98-108); Cholesterol 149 mg/dL (<=200); Globulin 4.5 g/dL (2.2-4.2); Glucose 100 mg/dL (70-99); Low Density Lipoprotein Calc. 74 mg/dL; Magnesium 2.1 mg/dL (1.5-2.2); Potassium 4.9 mmol/L (3.3-5.1); Triglycerides 70 mg/dL; Very Low Density Lipoprotein 14 mg/dL (5-40); cholesterol:hdl ratio screen 2.44
[2025-07-19 15:55] LABS: Vitamin D,25 Hydroxy 66.6 ng/mL (30-100)
[2025-07-19 16:19] LABS: Differential Comment SCANNED
== END 2025-07-19 23:59 | disposition home or self-care (01) ==
LOC: MFPLAB 11:56
PROVIDERS: Visit Provider Family Medicine
DX: E03.9 Hypothyroidism, unspecified (principal); I10 Essential (primary) hypertension; E55.9 Vitamin D deficiency, unspecified
CPT/HCPCS: 36415; 80053; 80061; 82306; 83735; 84439; 84443; 85025

== ENCOUNTER → 2025-08-25 | Outpatient (CLI) | payer MEDICARE, SELFPAY ==
[2025-08-25 18:04] LABS: Anion Gap 10 (5-15); BUN 15 mg/dL (4-19); BUN/Creat Ratio 20.8 RATIO (10-20); Calcium,Total 9.5 mg/dL (7.6-11.0); Carbon Dioxide 28.4 mmol/L (21.0-32.0); Chloride 97 mmol/L (98-108); Glucose 104 mg/dL (70-99); Potassium 3.9 mmol/L (3.3-5.1)
== END | disposition home or self-care (01) ==
LOC: MTLAB 15:16
PROVIDERS: PCP Family Medicine; Referring Provider Family Medicine; Visit Provider Family Medicine
DX: I10 Essential (primary) hypertension (principal)
CPT/HCPCS: 36415; 80048